=== PATIENT | female | born 1960 | race Caucasian/White ===

== ENCOUNTER 2023-08-02 10:04 | Inpatient (IN) | payer OTHER ==
--- OUTSIDE RECORDS SUMMARY | 2023-08-02 10:09 | XMS REPORT | Continuity of Care Document ---
Author Name Unknown Address [address] [facility] [address] [place] [address] [facility] Address [address] [facility] [place] [address] Care Team Providers Care Bruise Trimmer Name Role Phone Josiah Castano Primary Care Physician [phone] SOFIYA PALAFOX Attending Clinician Unavailable SOFIYA PALAFOX Attending Clinician Unavailable COLBY GUZMAN Attending Clinician Unavailable Lab, Ang - Db Attending Clinician Unavailable Doctor Unassigned, [place] Attending Clinician U Albert Moya MD Attending Clinician ALBERT SPENCE Attending Clinician Unavail able ALBERT SPENCE Attending Clinician Unavail able Oskar Robles MD Attending Clinician [phone] Jolene Raymond DO Attending Clinician [phone] JOLENE RAYMOND Attending Clinician Unavailable JOLENE RAYMOND Attending Clinician Unavailable CELINE BRAMBILA Attending Clinician Unavaila ble Only, Adc Test Attending Clinician Unavailable Pc, Adc Echo Room 1 - Attending Clinician Unavamike samuels Radiology Attending Clinician Unavailable RADIOLOGY Attending Clinician Unavailable OSKAR ROBLES Attending Clinician Unavailable Pc, Adc Vascular Room 1 - Attending Clinician Un available SHABOT, BRITNEY EDISON Attending Clinician Unavaila ble Payers Payer Name Policy Type Policy Number Effective Date Expirati on Date Source [facility] ANA ROWE [id number] 2014 00:00:00 Problems Condition Name Condition Details Condition Category Status Onset Date Resolution Date Last Treatment Date Treating Clinician Comments Source Decreased range of motion of ankle Decreased range of motion of ankle Disease Active 05-29 00:00: 00 [facility] Decreased muscle strength Decreased muscle strength Disease Active 05-29 00:00: 00 [facility] Difficulty walking Difficulty walking Disease Active 05-29 00:00: 00 Overview: Formattin g of this note might be different from the original. 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 [facility] Ankle pain Ankle pain Disease Active 05-23 00:00: 00 [facility] Chronic pain disorder Chronic pain disorder Disease Active 11-20 00:00: 00 [facility] Adjustment disorder Adjustment disorder Disease Active 11-20 00:00: 00 [facility] DVT, lower extremity DVT, lower extremity Disease Active 11-20 00:00: 00 [facility] Long-term current use of opiate analgesic Long-term current use of opiate analgesic Disease Active 11-20 00:00: 00 [facility] Bipolar 1 disorder Bipolar 1 disorder Disease Active 2011-04 00:00: 00 [facility] Seizures, post-traum atic Seizures, post-traum atic Disease Active 2011-04 00:00: 00 [facility] Pseudoseiz ure Pseudoseiz ure Disease Active 2011-04 00:00: 00 [facility] Complex partial seizure Complex partial seizure Disease Active 2011-04 00:00: 00 [facility] Pain in joint, ankle and foot Pain in joint, ankle and foot Disease Active 2011-04 00:00: 00 [facility] Cervicalgi a Cervicalgi a Disease Active 12-12 00:00: 00 [facility] Leg pain Leg pain Disease Active 12-12 00:00: 00 [facility] Gait disturbanc e Gait disturbanc e Disease Active 12-12 00:00: 00 [facility] Medication refill Medication refill Disease Active 11-03 00:00: 00 [facility] Allergies, Adverse Reactions, Alerts Allergy Name Allergy Type Status Severity Reaction(s) Onset Date Inactive Date Treating Clinician Comments Source TIZANIDI NE HCL DRUG INGREDI Active Other-Cmnt 09-20 00:00: 00 [facility] Tizanidi ne Hcl Propensi ty to adverse reaction s Active Other - See comments 09-20 00:00: 00 Blackout [facility] Pregabal in Propensi ty to adverse reaction s to drug Active Rash 09-14 00:00: 00 [facility] PREGABAL IN DRUG INGREDI Active High Rash 09-14 00:00: 00 [facility] Erythrom ycin Propensi ty to adverse reaction s Active Rash 07-04 00:00: 00 [facility] Haloperi dol Lactate Propensi ty to adverse reaction s Active Nausea and/or Vomiting 07-04 00:00: 00 [facility] Phenobar bital Propensi ty to adverse reaction s Active Other - See comments 07-04 00:00: 00 Couldn't walk or talk, doubled in blood system [facility] Tapentad ol Propensi ty to adverse reaction s Active Rash 07-04 00:00: 00 [facility] ERYTHROM YCIN DRUG Active Rash 07-04 00:00: 00 [facility] HALOPERI DOL LACTATE DRUG INGREDI Active N/V 07-04 00:00: 00 [facility] PHENOBAR BITAL DRUG INGREDI Active Other-Cmnt 07-04 00:00: 00 [facility] TAPENTAD OL DRUG INGREDI Active Rash 07-04 00:00: 00 [facility] CARBAMAZ EPINE DRUG INGREDI Active Other-Cmnt 07-04 00:00: 00 [facility] TOPIRAMA TE DRUG INGREDI Active Other-Cmnt 07-04 00:00: 00 [facility] Carbamaz epine Propensi ty to adverse reaction s Active Other - See comments 07-04 00:00: 00 Went toxic [facility] Topirama te Propensi ty to adverse reaction s Active Other - See comments 07-04 00:00: 00 Vision changes [facility] Social History Social Habit Start Date Stop Date Quantity Comments Source History of tobacco use Cigarette Smoker [facility] Gender [facility] Alcohol intake 2023-05-06 00:00:00 2023-05-06 00:00:00 Current non-drinker of alcohol (finding) [facility] History of Social function 2022-11-25 00:00:00 2022-11-25 00:00:00 [facility] Exposure to SARS-CoV-2 (event) 2022-07-23 00:00:00 2022-08-02 09:35:00 Not sure [facility] Cigarettes smoked current (pack per day) - Reported 2022-08-02 00:00:00 2022-08-02 00:00:00 [facility] Tobacco use and exposure 2022-08-02 00:00:00 2022-08-02 00:00:00 Smokeless tobacco non-user [facility] Cigarette pack-years 2022-08-02 00:00:00 2022-08-02 00:00:00 [facility] Sex Ass[birth year] At 1960 00:00:00 1960 00:00:00 [facility] Smoking Status Start Date Stop Date Source Occasional tobacco smoker 2022-08-02 00:00:00 [facility] Medications Ordered Medication Name Filled Medication Name Start Date Stop Date Current Medication? Ordering Clinician Indication Dosage Frequency Signature (SIG) Comments Components Source tiZANidine 4 mg tablet 2022-04- 00:00: 00 Yes [id number] 4mg Take 1 tablet by mouth every 6 (six) hours as needed for Pain (scale 4-6). [facility] Diclofenac Sodium 1 % gel 2022-04 0 00:00: 00 Yes Apply to affected area(s) 2 (two) times daily. [facility] ubrogepant (UBRELVY) 100 mg Tab 2022-04 0- 00:00: 00 02-08 00:00 :00 No [id number] TAKE 1 TABLET NEEDED FOR HEADACHE. IF SYMPTOMS PERSIST MAY REPEAT DOSE AFTER 2 HR. MAX 2 TABS IN 24HR...PA DENIED [facility] OXcarbazepi ne (TRILEPTAL) 600 mg tablet 2022-04 0- 00:00: 00 Yes [id number] 600mg Take 1 tablet by mouth in the morning and 1 tablet in the evening. [facility] propranoloL 20 mg tablet 2022-04 00:00: 00 04-12 00:00 :00 No [id number] 20mg Take 1 tablet by mouth in the morning and 1 tablet in the evening. [facility] ubrogepant 100 mg Tab 2022-04 0- 00:00: 00 02-02 00:00 :00 No [id number] 100mg Take 1 tablet by mouth as needed for Other (Headache) for up to 64 doses. If symptoms persist or return, may repeat dose after 2 hours. Maximum: 200 mg per 24 hours [facility] diclofenac sodium (PENNSAID TOPICAL) 01-06 11:01: 41 Yes Apply to area(s). [facility] losartan 50 mg tablet 01-06 00:00: 00 Yes [id number] 50mg Take 1 tablet by mouth in the morning. [facility] furosemide 40 mg tablet - 00:00: 00 Yes [id number] 40mg Take 1 tablet by mouth in the morning. [facility] rosuvastati n 20 mg tablet - 00:00: 00 Yes [id number] 20mg Take 1 tablet by mouth at bedtime. [facility] rosuvastati n (CRESTOR) 20 mg tablet 8 09:31: 15 11-25 00:00 :00 No 20mg Take 1 tablet by mouth at bedtime. [facility] lactulose 10 gram/15 mL solution 11-25 09:18: 15 11-25 00:00 :00 No 30mL Take 30 mL by mouth 2 (two) times daily as needed for Constipati on. [facility] hydrocortis one 1 % cream 11-25 09:18: 09 11-25 00:00 :00 No Apply to affected area(s) every 12 (twelve) hours. [facility] dimethicone (BLISTEX TOPICAL) 11-25 09:17: 56 11-25 00:00 :00 No Apply to area(s) daily. [facility] diclofenac sodium (PENNSAID TOPICAL) 11-25 08:34: 45 Yes Apply to area(s). [facility] Blood Pressure Monitor (BLOOD PRESSURE KIT) Kit 11-25 00:00: 00 Yes [id number] Use as directed twice daily to check blood pressure. [facility] tiZANidine 4 mg tablet 11-25 00:00: 00 04-12 00:00 :00 No [id number] 4mg Take 1 tablet by mouth every 6 (six) hours as needed for Pain (scale 4-6). [facility] terbinafine HCL 250 mg tablet 11-25 00:00: 00 04-12 00:00 :00 No [id number] 250mg Take 1 tablet by mouth in the morning. [facility] rosuvastati n 20 mg tablet 11-25 00:00: 00 11-26 00:00 :00 No [id number] 20mg Take 1 tablet by mouth at bedtime. [facility] OXcarbazepi ne (TRILEPTAL) 600 mg tablet 410 00:00: 00 02-01 00:00 :00 No [id number] 600mg Take 1 tablet by mouth in the morning and 1 tablet in the evening. [facility] Lysine 500 mg Tab 2020-04 10:04: 52 03-13 00:00 :00 No Take by mouth daily. [facility] acetaminoph en 500 mg tablet 2020-04 10:02: 29 03-13 00:00 :00 No 500mg Take 500 mg by mouth every 6 (six) hours as needed for Pain. [facility] Butalbital- Acetaminoph en-Caff 50-300-40 mg per capsule 2020-04 0-05 00:00: 00 08-02 00:00 :00 No [facility] diclofenac sodium (PENNSAID TOPICAL) 11-14 15:21: 24 Yes Apply to area(s). [facility] hydrocortis one 1 % cream 10-15 15:44: 09 Yes Apply to affected area(s) every 12 (twelve) hours. [facility] lactulose 10 gram/15 mL solution 10-15 15:44: 09 Yes 30mL Take 30 mL by mouth 2 (two) times daily as needed for Constipati on. [facility] dimethicone (BLISTEX TOPICAL) 10-15 15:44: 09 Yes Apply to area(s) daily. [facility] rosuvastati n (CRESTOR) 20 mg tablet 10-15 15:40: 02 Yes 20mg Take 20 mg by mouth at bedtime. [facility] triamcinolo ne acetonide 0.1 % cream 12-15 00:00: 00 11-25 00:00 :00 No 2 (two) times daily. [facility] OXcarbazepi ne (TRILEPTAL) 600 mg tablet 04-30 00:00: 00 08-02 00:00 :00 No [id number] 600mg Take 1 tablet by mouth 2 (two) times daily. [facility] lamoTRIgine 150 mg tablet 04-26 00:00: 00 03-13 00:00 :00 No [id number] 150mg Take 1 tablet by mouth 2 (two) times daily. [facility] HYDROcodone -acetaminop hen 7.5-325 mg per tablet 2015-04 00:00: 00 Yes 1{tbl} 1 tablet 3 (three) times daily as needed. [facility] furosemide (LASIX) 40 mg tablet 2015-04 00:00: 00 11-26 00:00 :00 No 40mg Take 1 tablet by mouth in the morning. [facility] KCL (KLOR-CON M10) 10 mEq tablet 2015-04 00:00: 00 03-13 00:00 :00 No [facility] clonazePAM (KLONOPIN) 2 mg tablet 09-03 00:00: 00 11-25 00:00 :00 No [id number] 2mg Take 1 Tab by mouth 2 (two) times daily. [facility] CYMBALTA 60 mg capsule 2012-04 00:00: 00 11-25 00:00 :00 No TAKE ONE CAPSULE EVERY DAY [facility] pantoprazol e (PROTONIX) 40 mg EC tablet 2012-04 00:00: 00 11-25 00:00 :00 No [id number] 40mg Take 1 Tab by mouth daily. [facility] Immunizations Ordered Immunization Name Filled Immunization Name Date Status Comments Source Td 2015-09-21 00:00:00 Completed [facility] TD, NOS 2015-09-21 00:00:00 Completed [facility] TD, NOS 2015-09-21 00:00:00 Completed [facility] TD, NOS 2015-09-21 00:00:00 Completed [facility] TD, NOS 2015-09-21 00:00:00 Completed [facility] TD, NOS 2015-09-21 00:00:00 Completed [facility] TD, NOS 2015-09-21 00:00:00 Completed [facility] TD, NOS 2015-09-21 00:00:00 Completed [facility] TD, NOS 2015-09-21 00:00:00 Completed [facility] TD, NOS 2015-09-21 00:00:00 Completed [facility] TD, NOS 2015-09-21 00:00:00 Completed [facility] TD, NOS 2015-09-21 00:00:00 Completed [facility] Influenza Intradermal Vaccine 2013-01-24 00:00:00 Completed [facility] Influenza Intradermal Vaccine 2013-01-24 00:00:00 Completed [facility] Influenza Intradermal Vaccine 2013-01-24 00:00:00 Completed [facility] Influenza Intradermal Vaccine 2013-01-24 00:00:00 Completed [facility] Influenza Intradermal Vaccine 2013-01-24 00:00:00 Completed [facility] Influenza Intradermal Vaccine 2013-01-24 00:00:00 Completed [facility] Influenza Intradermal Vaccine 2013-01-24 00:00:00 Completed [facility] Influenza Intradermal Vaccine 2013-01-24 00:00:00 Completed [facility] Influenza Intradermal Vaccine 2013-01-24 00:00:00 Completed [facility] Influenza Intradermal Vaccine 2013-01-24 00:00:00 Completed [facility] Influenza Intradermal Vaccine 2013-01-24 00:00:00 Completed [facility] Influenza Intradermal Vaccine 2013-01-24 00:00:00 Completed [facility] Influenza Virus Vaccine 2012-03-15 00:00:00 Completed [facility] Influenza Virus Vaccine 2012-03-15 00:00:00 Completed [facility] Influenza Virus Vaccine 2012-03-15 00:00:00 Completed [facility] Influenza Virus Vaccine 2012-03-15 00:00:00 Completed [facility] Influenza Virus Vaccine 2012-03-15 00:00:00 Completed [facility] Influenza Virus Vaccine 2012-03-15 00:00:00 Completed [facility] Influenza Virus Vaccine 2012-03-15 00:00:00 Completed [facility] Influenza Virus Vaccine 2012-03-15 00:00:00 Completed [facility] Influenza Virus Vaccine 2012-03-15 00:00:00 Completed [facility] Influenza Virus Vaccine 2012-03-15 00:00:00 Completed [facility] Influenza Virus Vaccine 2012-03-15 00:00:00 Completed [facility] Influenza Virus Vaccine 2012-03-15 00:00:00 Completed [facility] Influenza Virus Vaccine Unknown Completed [facility] Influenza Intradermal Vaccine Unknown Completed [facility] TD, NOS Unknown Completed [facility] Influenza Virus Vaccine Unknown Completed [facility] Influenza Intradermal Vaccine Unknown Completed [facility] TD, NOS Unknown Completed [facility] Influenza Virus Vaccine Unknown Completed [facility] Influenza Intradermal Vaccine Unknown Completed [facility] TD, NOS Unknown Completed [facility] Influenza Virus Vaccine Unknown Completed [facility] Influenza Intradermal Vaccine Unknown Completed [facility] TD, NOS Unknown Completed [facility] Influenza Virus Vaccine Unknown Completed [facility] Influenza Intradermal Vaccine Unknown Completed [facility] TD, NOS Unknown Completed [facility] Influenza Virus Vaccine Unknown Completed [facility] Influenza Intradermal Vaccine Unknown Completed [facility] TD, NOS Unknown Completed [facility] Influenza Virus Vaccine Unknown Completed [facility] Influenza Intradermal Vaccine Unknown Completed [facility] TD, NOS Unknown Completed [facility] Influenza Virus Vaccine Unknown Completed [facility] Influenza Intradermal Vaccine Unknown Completed [facility] TD, NOS Unknown Completed [facility] Influenza Virus Vaccine Unknown Completed [facility] Influenza Intradermal Vaccine Unknown Completed [facility] TD, NOS Unknown Completed [facility] Influenza Virus Vaccine Unknown Completed [facility] Influenza Intradermal Vaccine Unknown Completed [facility] TD, NOS Unknown Completed [facility] Influenza Virus Vaccine Unknown Completed [facility] Influenza Intradermal Vaccine Unknown Completed [facility] TD, NOS Unknown Completed [facility] TDAP Unknown Completed [facility] Influenza Virus Vaccine Unknown Completed [facility] Influenza Intradermal Vaccine Unknown Completed [facility] TD, NOS Unknown Completed [facility] TDAP Unknown Completed [facility] Influenza Virus Vaccine Unknown Completed [facility] Influenza Intradermal Vaccine Unknown Completed [facility] TD, NOS Unknown Completed [facility] TDAP Unknown Completed [facility] Influenza Virus Vaccine Unknown Completed [facility] Influenza Intradermal Vaccine Unknown Completed [facility] TD, NOS Unknown Completed [facility] TDAP Unknown Completed [facility] Influenza Virus Vaccine Unknown Completed [facility] Influenza Intradermal Vaccine Unknown Completed [facility] TD, NOS Unknown Completed [facility] TDAP Unknown Completed [facility] Influenza Virus Vaccine Unknown Completed [facility] Influenza Intradermal Vaccine Unknown Completed [facility] TD, NOS Unknown Completed [facility] Influenza Virus Vaccine Unknown Completed [facility] Influenza Intradermal Vaccine Unknown Completed [facility] TD, NOS Unknown Completed [facility] Vital Signs Vital Name Observation Time Observation Value Comments S ource Systolic blood pressure 2023-05-06 19:27:00 125 mm[Hg] [facility] Diastolic blood pressure 2023-05-06 19:27:00 83 mm[Hg] [facility] Heart rate 2023-05-06 19:27:00 65 /min [facility] Body temperature 2023-05-06 19:27:00 36.61 Maegan [facility] Body height 2023-05-06 19:27:00 [facility].7 [facility] Body weight 2023-05-06 19:27:00 [facility]272 [facility] BMI 2023-05-06 19:27:00 29.25 kg/m2 [facility] Oxygen saturation in Arterial blood by Pulse oximetry 2023-05-06 19:27:00 96 /min [facility] Systolic blood pressure 2023-04-12 15:54:00 129 mm[Hg] [facility] Diastolic blood pressure 2023-04-12 15:54:00 80 mm[Hg] [facility] Heart rate 2023-04-12 15:54:00 77 /min [facility] Body temperature 2023-04-12 15:54:00 36.56 Maegan [facility] Body height 2023-04-12 15:54:00 172.7 cm [facility] Body weight 2023-04-12 15:54:00 88.95 kg [facility] BMI 2023-04-12 15:54:00 29.82 kg/m2 [facility] Oxygen saturation in Arterial blood by Pulse oximetry 2023-04-12 15:54:00 96 /min [facility] Systolic blood pressure 2023-03-07 15:10:00 135 mm[Hg] [facility] Diastolic blood pressure 2023-03-07 15:10:00 73 mm[Hg] [facility] Heart rate 2023-03-07 15:10:00 59 /min [facility] 2023-03-07 15:10:00 18 /min [facility] Body height 2023-03-07 15:10:00 172.7 cm [facility] Body weight 2023-03-07 15:10:00 89.404 kg [facility] BMI 2023-03-07 15:10:00 29.97 kg/m2 [facility] Oxygen saturation in Arterial blood by Pulse oximetry 2023-03-07 15:10:00 96 /min [facility] Systolic blood pressure 2023-02-08 15:20:00 124 mm[Hg] [facility] Diastolic blood pressure 2023-02-08 15:20:00 71 mm[Hg] [facility] Heart rate 2023-02-08 15:20:00 62 /min [facility] Body temperature 2023-02-08 15:20:00 36.44 Maegan [facility] Body height 2023-02-08 15:20:00 172.7 cm [facility] Body weight 2023-02-08 15:20:00 91.491 kg [facility] BMI 2023-02-08 15:20:00 30.67 kg/m2 [facility] Oxygen saturation in Arterial blood by Pulse oximetry 2023-02-08 15:20:00 96 /min [facility] Systolic blood pressure 2023-02-01 14:19:00 158 mm[Hg] [facility] Diastolic blood pressure 2023-02-01 14:19:00 92 mm[Hg] [facility] Heart rate 2023-02-01 14:11:00 81 /min [facility] Body height 2023-02-01 14:11:00 172.7 cm [facility] Body weight 2023-02-01 14:11:00 91.128 [facility] BMI 2023-02-01 14:11:00 30.55 kg/m2 [facility] Oxygen saturation in Arterial blood by Pulse oximetry 2023-02-01 14:11:00 96 /min [facility] Systolic blood pressure 2023-01-06 16:01:00 151 mm[Hg] [facility] Diastolic blood pressure 2023-01-06 16:01:00 92 mm[Hg] [facility] Heart rate 2023-01-06 15:52:00 65 /min [facility] Body temperature 2023-01-06 15:52:00 36.22 Maegan [facility] Body height 2023-01-06 15:52:00 172.7 cm [facility] Body weight 2023-01-06 15:52:00 90.357 kg [facility] BMI 2023-01-06 15:52:00 30.29 kg/m2 [facility] Oxygen saturation in Arterial blood by Pulse oximetry 2023-01-06 15:52:00 96 /min [facility] Systolic blood pressure 2022-11-25 13:34:00 178 mm[Hg] [facility] Diastolic blood pressure 2022-11-25 13:34:00 96 mm[Hg] [facility] Heart rate 2022-11-25 13:09:00 77 /min [facility] Body temperature 2022-11-25 13:09:00 36.61 Maegan [facility] Body height 2022-11-25 13:09:00 172.7 cm [facility] Body weight 2022-11-25 13:09:00 90.266 kg [facility] BMI 2022-11-25 13:09:00 30.26 kg/m2 [facility] Oxygen saturation in Arterial blood by Pulse oximetry 2022-11-25 13:09:00 97 /min [facility] Systolic blood pressure 2022-08-02 15:06:00 130 mm[Hg] [facility] Diastolic blood pressure 2022-08-02 15:06:00 83 mm[Hg] [facility] Heart rate 2022-08-02 15:06:00 76 /min [facility] Body height 2022-08-02 15:06:00 172.7 cm [facility] Body weight 2022-08-02 15:06:00 84.732 [facility] BMI 2022-08-02 15:06:00 28.40 kg/m2 [facility] Systolic blood pressure 2021-03-13 15:58:00 118 mm[Hg] [facility] Diastolic blood pressure 2021-03-13 15:58:00 70 mm[Hg] [facility] Heart rate 2021-03-13 15:58:00 80 /min [facility] Respiratory rate 2021-03-13 15:58:00 20 /min [facility] Body height 2021-03-13 15:58:00 172.7 cm [facility] Body weight 2021-03-13 15:58:00 86.229 kg [facility] BMI 2021-03-13 15:58:00 28.90 kg/m2 [facility] Oxygen saturation in Arterial blood by Pulse oximetry 2021-03-13 15:58:00 99 /min [facility] Procedures Procedure Date / Time Performed Performing Clinician Source TDAP VACCINE, >11 YRS, IM 2023-04-12 16:03:26 Javy [facility] BI SCREENING TOMOSYNTHESIS BILATERAL 2023-03-11 16:53:54 [facility] Encounters Start Date/Time End Date/Time Encounter Type Admission Type Attending Clinicians Care Facility Care Department Encounter ID Source 2023-09-05 09:30:00 2023-09-05 09:30:00 Outpatient COLBY INIGUEZ [facility] [id number] [facility] 2023-08-01 09:09:03 2023-08-01 09:09:03 Outpatient SFA SFA [id number] Jimenez Rahman 2023-07-26 13:00:28 2023-07-26 13:00:28 Outpatient SFA SFA [id number] Jimenez Rahman 2023-07-19 13:01:00 2023-07-19 13:01:00 Outpatient SFA SFA [id number] Jimenez Rahman 2023-07-18 11:21:16 2023-07-18 11:21:16 Outpatient SFA SFA [id number] Jimenez Rahman 2023-07-12 13:08:51 2023-07-12 13:08:51 Outpatient SFA SFA 19 Jimenez Rahman 2023-07-05 13:05:40 2023-07-05 13:05:40 Outpatient SFA SFA 12 Jimenez Rahman 2023-06-28 13:02:56 2023-06-28 13:02:56 Outpatient SFA SFA [id number] Jimenez Rahman 2023-06-27 11:27:06 2023-06-27 11:27:06 Outpatient SFA SFA [id number] Jimenez Rahman 2023-06-21 13:16:31 2023-06-21 13:16:31 Outpatient SFA SFA 27 Jimenez Rahman 2023-06-14 13:01:29 2023-06-14 13:01:29 Outpatient SFA SFA [id number] Jimenez Rahman 2023 13:14:53 2023 13:14:53 Outpatient SFA SFA [id number] Jimenez Rahman 2023-05-24 13:02:49 2023-05-24 13:02:49 Outpatient SFA SFA [id number] Jimenez Rahman 2023-05-06 13:20:00 2023-05-06 13:47:36 Outpatient R SOFIYA PALAFOX CHRISTINE [facility] [id number] [facility] 2023-05-06 13:20:00 2023-05-06 13:47:36 [facility] 1.2.840.114 350.1.13.10 4.2.7.2.686 [id number] [facility] 2023-05-02 10:18:56 2023-05-02 10:18:56 Outpatient [facility] [id number] Jimenez Rahman 2023-04-12 10:20:00 2023-04-12 10:40:00 Office Visit Javy [facility] 1..840.114 350.1.13.10 4.2.7.2.686 [id number] [facility] 2023-04-12 10:20:00 2023-04-12 10:20:00 Outpatient R TARAH PALAFOXWALDEMAR PALAFOX [facility] [id number] [facility] 2023-03-28 09:23:41 2023-03-28 09:23:41 Outpatient [facility] [id number] Jimenez Rahman 2023-03-11 10:30:44 2023-03-11 23:59:00 Hospital Encounter Sofiya Palafox [facility] 1..840.114 350.1.13.10 4.2.7.2.686 [id number] [facility] 2023-03-11 10:28:56 2023-03-11 10:29:00 Outpatient R SOFIYA PALAFOX [facility] [id number] [facility] 2023-03-11 10:28:56 2023-03-11 10:29:00 Hospital Encounter Javy [facility] 1..840.114 350.1.13.10 4.2.7.2.686 [id number] [facility] 2023-03-07 10:30:00 2023-03-07 10:30:00 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, 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 Cha [facility] 1..840.114 350.1.13.10 4.2.7.2.686 [id number] [facility] 2023-03-07 09:30:00 2023-03-07 10:02:59 Outpatient R COLBY GUZMAN [facility] [id number] [facility] 2023-03-07 09:30:00 2023-03-07 10:02:59 [facility] 1..840.114 350.1.13.10 4.2.7.2.686 [id number] [facility] 2023-02-08 10:20:00 2023-02-08 11:13:34 Outpatient R JAVY SOFIYA KLEDanie [facility] [id number] [facility] 2023-02-08 10:20:00 2023-02-08 11:13:34 [facility] 1..840.114 350.1.13.10 4.2.7.2.686 [id number] [facility] 2023-02-01 10:00:00 2023-02-01 10:00:00 Office [facility] 1..840.114 350.1.13.10 4.2.7.2.686 [id number] [facility] 2023-02-01 10:00:00 2023-02-01 09:41:16 Outpatient R COLBY GUZMAN [facility] [id number] [facility] 2023-02-01 00:00:00 2023-02-01 00:00:00 Refill [facility] 1..840.114 350.1.13.10 4.2.7.2.686 [id number] [facility] 2023-02-01 00:00:00 2023-02-01 00:00:00 Telephone GuzmanColyb [facility] 1.2.840.114 350.1.13.10 4.2.7.2.686 [id number] [facility] 2023-01-06 11:30:00 2023-01-06 11:45:00 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, Lorenzo - Omar Javy [facility] 1.2.840.114 350.1.13.10 4.2.7.2.686 [id number] [facility] 2023-01-06 11:00:00 2023-01-06 11:33:54 [facility] 1.2840.114 350.1.13.10 4.2.7.2.686 [id number] [facility] 2023-01-06 11:30:00 2023-01-06 11:30:00 [facility] [id number] 2023-01-06 00:00:00 2023-01-06 00:00:00 Letter (Out) Doctor Unassigned, [place] [address].2840.114 350.1.13.10 4.2.7.2.686 [id number] [facility] 2023-01-06 00:00:00 2023-01-06 00:00:00 Letter (Out) Doctor Unassigned, [place] [facility] 1.2840.114 350.1.13.10 4.2.7.2.686 [id number] [facility] 2023-01-03 09:23:55 2023-01-03 09:23:55 Outpatient [facility] [id number] Jimenez Rahman 2022-12-20 09:47:52 2022-12-20 09:47:52 Outpatient SFA [facility] [id number] Jimenez Rahman 2022-11-29 09:59:02 2022-11-29 09:59:02 Outpatient SFA [facility] [id number] Jimenez Rahman 2022-11-26 00:00:00 2022-11-26 00:00:00 Telephone Javy [facility] 1.2.840.114 350.1.13.10 4.2.7.2.686 [id number] [facility] 2022-11-25 08:40:00 2022-11-25 09:20:00 Office Visit Javy [facility] 1.2.840.114 350.1.13.10 4.2.7.2.686 [id number] [facility] 2022-11-25 08:40:00 2022-11-25 08:40:00 Outpatient Julee DRIVERDanieSOFIYA [facility] [id number] [facility] 2022-11-01 09:32:07 2022-11-01 09:32:07 Outpatient [facility] [id number] Jimenez Ramhan 2022-08-02 10:45:00 2022-08-02 11:00:00 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, Albert Rivera [facility] 1.2.840.114 350.1.13.10 4.2.7.2.686 [id number] [facility] 2022-08-02 09:40:00 2022-08-02 10:50:10 Outpatient ALBERT BAIG HOWARD [facility] [id number] [facility] 2022-08-02 09:40:00 2022-08-02 10:50:10 Office Visit Albert Spence [facility] 1.284.114 350.1.13.10 4.2.7.2.686 [id number] [facility] 2021-03-13 10:00:00 2021-03-13 10:43:14 Outpatient R HEIDI ALBERT HERNANDEZ [facility] [id number] [facility] 2021-03-13 09:37:39 2021-03-13 10:43:14 Office Visit Albert Spence [facility] 1.284.114 350.1.13.10 4.2.7.2.686 [id number] [facility] 2021-03-13 00:00:00 2021-03-13 00:00:00 Orders Only Doctor Unassigned, [place] [facility] 1.2840.114 350.1.13.10 4.2.7.2.686 [id number] [facility] 2020-01-31 00:00:00 2020-01-31 00:00:00 [facility] 1.2.840.114 350.1.13.10 4.2.7.2.686 [id number] 2020-01-31 00:00:00 2020-01-31 00:00:00 Telephone [facility] 1.2840.114 350.1.13.10 4.2.7.2.686 [id number] [facility] 2020-01-25 15:00:23 2020-01-25 16:25:38 Office Visit Jolene Raymond [facility] Building 1.284.114 350.1.13.10 4.2.7.2.686 [id number] 2020-01-25 15:00:23 2020-01-25 16:25:38 Office Visit Jolene Raymond [facility] 1.2.840.114 350.1.13.10 4.2.7.2.686 [id number] [facility] 2020-01-25 15:40:00 2020-01-25 15:40:00 Outpatient R JOLENE RAYMOND SHIWAN [facility] [id number] [facility] 2020-01-25 00:00:00 2020-01-25 00:00:00 Orders Only Doctor Unassigned, [place] [facility] 1.2.840.114 350.1.13.10 4.2.7.2.686 [id number] 2020-01-25 00:00:00 2020-01-25 00:00:00 Orders Only Doctor Unassigned, [place] [facility] 1.2.840.114 350.1.13.10 4.2.7.2.686 [id number] [facility] 2020-01-22 00:00:00 2020-01-22 00:00:00 Telephone Jolene Raymond [facility] 1.2.840.114 350.1.13.10 4.2.7.2.686 [id number] [facility] 2020-01-17 15:00:00 2020-01-17 15:00:00 Outpatient R JOLENE RAYMOND SHIWAN [facility] [id number] [facility] 2020-01-17 10:40:00 2020-01-17 10:40:00 Outpatient R JOLENE RAYMOND SHIWAN [facility] [id number] [facility] 2020-01-11 15:30:00 2020-01-11 15:30:00 Outpatient R CELINE BRAMBILA [facility] [id number] [facility] 2020-01-07 14:56:15 2020-01-07 15:11:15 Glove Machine Operator Visit Only, Adc Test RaymondJustinamatti [facility] 1.2.840.114 350.1.13.10 4.2.7.2.686 [id number] [facility] 2020-01-07 14:30:00 2020-01-07 14:30:00 Outpatient R [facility] [id number] [facility] 2020-01-07 00:00:00 2020-01-07 00:00:00 Orders Only Doctor Unassigned, [place] [facility] 1.2.840.114 350.1.13.10 4.2.7.2.686 [id number] [facility] 2019-11-07 16:07:56 2019-11-16 13:07:58 Laboratory Only Pc, Adc Echo Room - [facility] 1.2.840.114 350.1.13.10 4.2.7.2.686 [id number] [facility] 2019-11-16 00:00:00 2019-11-16 00:00:00 Telephone LisetteJustinamatti [facility] 1.2.840.114 350.1.13.10 4.2.7.2.686 [id number] [facility] 2019-11-15 14:48:51 2019-11-15 16:32:01 Office Visit Jolene Raymond [facility] 1.2.840.114 350.1.13.10 4.2.7.2.686 [id number] [facility] 2019-11-15 15:00:00 2019-11-15 15:00:00 [facility] [id number] [facility] 2019-11-13 14:20:00 2019-11-13 23:59:00 Hospital Encounter Radiology [facility] 1.2.840.114 350.1.13.10 4.2.7.2.686 [id number] [facility] 2019-11-13 14:28:15 2019-11-13 14:28:15 Outpatient R RADIOLOGY [facility] [id number] [facility] 2019-11-07 16:00:00 2019-11-07 16:00:00 [facility] [id number] [facility] 2019-11-07 00:00:00 2019-11-07 00:00:00 Telephone Zeeshan [facility] Building 1.2.840.114 350.1.13.10 4.2.7.2.686 [id number] [facility] 2019-11-01 14:00:00 2019-11-01 14:00:00 Outpatient R JOLENE RAYMOND SHIWAN [facility] [id number] [facility] 2019-11-01 00:00:00 2019-11-01 00:00:00 Telephone Zeeshan [facility] Building 1.2.840.114 350.1.13.10 4.2.7.2.686 [id number] [facility] 2019-10-29 14:53:09 2019-10-29 15:53:09 Glove Machine Operator Visit Pc, Adc Vascular Room 1 - Zeeshan [facility] nal Building 1.2.840.114 350.1.13.10 4.2.7.2.686 [id number] [facility] 2019-10-29 15:00:00 2019-10-29 15:00:00 Outpatient R [facility] [id number] [facility] 2019-10-16 15:03:21 2019-10-16 16:15:38 Office Visit Oskar Robles [facility] 1.2.840.114 350.1.13.10 4.2.7.2.686 [id number] [facility] 2019-10-16 15:00:00 2019-10-16 15:00:00 Outpatient R OSKAR ROBLES [facility] [id number] [facility] 2019-10-16 00:00:00 2019-10-16 00:00:00 Orders Only Doctor Unassigned, [place] [address].2.840.114 350.1.13.10 4.2.7.2.686 [id number] [facility] 2019-09-19 00:00:00 2019-09-19 00:00:00 Orders Only Doctor Unassigned, [place] [address].2.840.114 350.1.13.10 4.2.7.2.686 [id number] [facility] 2014-07-23 09:30:00 2014-07-23 09:30:00 Outpatient R BRITNEY BAIG [facility] [id number] [facility] Notes Date/Time Note Provider Source 2023-01-06 11:30:00 bV5VoJmsnb5yyHbpMJvg hT4qX7fWR4 EwO3+YBGabT6N0onNPCcQVYms86F0t uvMr9629-50-25D90:30:00Formatt ing of this note is different from the original.Images from the original note were not included.Venipuncture collection performed by clean technique on the right anticubitus. Total of 1 attempts were made. Slight pressure and a bandage/dressing were applied to the site(s). The patient experienced no complications. The following specimens were processed according to instructions and sent to [facility] laboratories per lab order on 01/06/2023 : LT BLUE SST 2 RED LAV PPT DK GREEN (LiHep) DK GREEN (SodH) ARIAS DK BLUE (K2) DK BLUE (S) ACD Blood Culture NIPT/NTD 54919-0Xqruv PszvSH1273-12-80B74:45:47Nurse NoteTXT1.2.840.483143.1.13.104 .2.7.2.393647|[id number] lable for patient lczk85124-7Ctdxj NoteLN[address]TXTX[address] 647545CTXVUDPIEDNKBFTSGACBRU81 15-01-141:45:471.2.840.16003 0.1.72.3.15|1.2.840.853359.1.1 3.104.2.7.2.727879_[id number] [facility] 2022-11-29 15:23:07 99kP7sC+uOXeZ6KCHiWb i7uKd+mqZa 3qJFLpP+vMgY4wwFpi0StpStITvx9X pY0+5849-35-78M17:23:07Formatt ing of this note might be different from the original.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 I will see if it can be specific to department but it is under FYI flag which triggers the banner. I will find out - thank you! 97461-8Acvmehsmx encounter DdceGM1138-05-65G95:25:50Telep shelbi encounter NoteTXT1.2.840.087287.1.13.104 .2.7.2.008073|[id number] lable for patient rojx72351-9FvpoBW555714143Xtoe adam CYR[address] 251241GBYZAZLUOWCXXXJLFTCVNP72 15-12-065:25:501.2.840.30388 0.1.72.3.15|1.2.840.433392.1.1 3.104.2.7.2.727879_[id number] Bren Bird RN [facility] 2022-11-26 17:20:16 P2bWJgEyn+WWN2DqWDGF oPtbY1ZOtP 4x8UCBWN5+IgmQF5J/NI8zJDziiJpb Pm5P1230-29-01F51:20:16Formatt ing of this note might be different from the original.Sent, BTW there is a banner that says "dismissed from practice." Can you speak with kathleen or bren as to why or if we can get it changed in the system. 88569-2Btystrazk encounter SxewKV6667-74-14D00:21:32Telep shelbi encounter NoteTXT1.2.840.872976.1.13.104 .2.7.2.395424|[id number] lable for patient nsek97179-3JpthMAMBZFKBGP[address]on[place] 494547LZUNHWFWDSPSXIXZWNOEZH44 16-12-03T17:21:321.2.840.74701 0.1.72.3.15|1.2.840.913451.1.1 3.104.2.7.2.727879_[id number] [facility] 2022-11-26 11:29:00 6kZ3nUregFX+NO89sulT XS6UOM6blq 0y3BJmuYIWRtI3NUegzFSpT0Cdrdsu CXPl9723-81-72I17:29:00Formatt ing of this note might be different from the original.Please review and refill if appropriate. 79474-2Ggxwbkvdw encounter WijoRJ3906-15-38V11:31:48Telep shelbi encounter NoteTXT1.2.840.729703.1.13.104 .2.7.2.633227|[id number] lable for patient xvpw19770-5QjmaNLEPJNUTOH[address]onGalvestonTXTX[address] 809843QLKEZPRQIOPRCTALVGPDWF35 16-12-03T11:31:481.2.840.81968 0.1.72.3.15|1.2.840.881558.1.1 3.104.2.7.2.727879_[id number] [facility] 2022-11-26 11:11:12 jsW+NTcs3oOmB0ZoBReZ redLPGRVfB F5wbO1GZSwf17Gdokh5XqCu4kVsYHp lpBs6793-83-07K42:11:12Formatt ing of this note might be different from the original.Pt says she need refill on lasix and CRESTOR went to pharm yesterday they informed her no refillCVS/FREEPORTElectronical ly signed by Clare Martin at 11/26/2022 11:24 AM AOC85967-9Bckmslcer encounter XtnkNC9282-45-69P71:24:08Telep shelbi encounter NoteTXT1.2.840.276561.1.13.104 .2.7.2.550841|[id number] lable for patient aplp96640-1QmadNM276841096Zdhr a Rodriguez[address]onTXTX[address] 421146NSFAMRFBIMISXQWSTUEGEA67 16-12-03T11:24:081.2.840.23104 0.1.72.3.15|1.2.840.713755.1.1 3.104.2.7.2.727879_[id number] Clare Martin [facility]
[2023-08-02 11:25] LABS: Absolute Basophils 0.1 K/uL (0-0.5); Absolute Eosinophils 0.1 K/uL (0-0.5); Absolute Lymphocytes (CBC) 2.5 K/uL (0.7-4.9); Absolute Monocytes 1.3 K/uL (0.1-1.3); Absolute Neutrophil 9.9 K/uL (1.8-8.0); Basophils % 0.5 % (0-1.3); Eosinophils % 0.6 % (0-4.4); Hematocrit 43.2 % (36.0-45.0); Hemoglobin 14.4 g/dL (12.0-15.0); Lymphocytes % 18.1 % (15.3-44.8); MCH 30.6 pg (27.0-35.0); MCHC 33.4 g/dL (32.0-36.0); MCV 91.8 fL (80-100); MPV 8.4 fL (7.6-11.3); Monocytes % 9.2 % (3.3-12.3); Neutrophils % 71.6 % (41.7-73.7); Platelets 237 thou/uL (152-406); RBC Red Blood Cell Count 4.71 M/uL (3.86-4.86); Red Cell Distribution Width 13.3 % (12.1-15.2)
[2023-08-02 11:41] LABS: Albumin 3.7 g/dL (3.4-5.0); Albumin/Globulin Ratio 0.8 (1.1-1.8); Anion Gap 7.2 mEq/L (5.0-15.0); Bilirubin Total 0.6 mg/dL (0.2-1.0); Globulin 4.8 g/dL (2.3-3.5); Potassium 3.2 mEq/L (3.5-5.1); Protein, Total 8.5 g/dL (6.4-8.2)
[2023-08-02 11:42] LABS: Specific Gravity 1.005 (1.005-1.030); Sqamous Epithelial <5 /HPF (None Seen); Urine Bacteria <20 /HPF (<20); Urine Bilirubin NEGATIVE (Negative); Urine Blood Trace (Negative); Urine Clarity Turbid (Clear); Urine Color Colorless (Yellow); Urine Culture Reflex Order NOT NEEDED; Urine Glucose NEGATIVE (Negative); Urine Ketones NEGATIVE (Negative); Urine Microscopic Reflex YN ORDER UMIC; Urine Mucus Slight /HPF (None Seen); Urine Nitrite NEGATIVE (Negative); Urine Protein NEGATIVE (Negative); Urine RBC <5 /HPF (None Seen); Urine Urobilinogen Normal (Normal); Urine WBC <5 /HPF (<5)
[2023-08-02] MEDS ORDERED: MORPHINE 4 MG/ML SYR ONE (11:58)
[2023-08-02] MEDS ORDERED: NA CHLORIDE 0.9% 1,000 ML ONE (11:58)
[2023-08-02] MEDS ORDERED: ONDANSETRON 4 MG/2 ML VIAL ONE (11:58)
--- NOTE | 2023-08-02 12:04 | RAD REPORT ---
EXAM DESCRIPTION: CT - Abdomen Pelvis W Contrast - 08/02/2023 11:50 am CLINICAL HISTORY: Abdominal pain COMPARISON: none. TECHNIQUE: Computed axial tomography of the abdomen pelvis was obtained. 100 cc Isovue-300 was admin istered intravenously. Oral contrast was not requested which limits evaluation of bowel and appendix All CT scans are performed using dose optimization technique as appropriate and may include automated exposure control or mA/KV adjustment according to patient size. FINDINGS: Mild fatty liver. The liver is enlarged. Spleen, pancreas, right adrenal and right kidney unremarkable. Small left renal cyst. 1.9 centimeter fatty mass left adrenal gland likely benign Normal appendix. Diverticula stem from the colon. Thickening of the wall of the distal sigmoid colon with moderate str anding within the adjacent fat. 1.7 centimeter low-density structure within the wall. Small amount of free fluid. Cholecystectomy. Hysterectomy IMPRESSION: Patient most likely has a moderate sigmoid diverticulitis with small abscess. Close foll ow-up is recommended to exclude the less likely possibility that this is neoplastic
--- NOTE | 2023-08-02 12:13 | EDPHYS ---
Physician Documentation [facility] Name: Kirti Desai Age: 63 yrs Sex: Female : 1960 Arrival Date: 08/02/2023 Time: 10:04 Bed 10 Private MD: ED Physician Crescencio Salvador HPI: 08/01 11:42 This 63 yrs old Female presents to ER via Ambulatory with complaints of Low ec2 Back Pain, Abdominal Pain, Fever. 11:42 Patient arrives today for evaluation of right-sided abdominal pain. Patient reports she ec2 been having right side abdominal pain since earlier this morning. Patient reports no specific alleviating or exacerbating factors. Reports previous history of hysterectomy, cholecystectomy. Denies any fevers or chills, reports some associated nausea, no vomiting. No stool changes.. Historical: - Allergies: 10:14 haloperidol lactate; ll1 10:14 Carbamazepine; ll1 10:14 erythromycin lactobionate; ll1 10:14 Haloperidol; ll1 10:14 Phenobarbital; ll1 10:14 tapentadol; ll1 10:14 topiramate; ll1 - PMHx: 10:14 Bipolar disorder; CVA; April- but undiagnosed. (); Anxiety; DVT L leg-from hip ll1 down to toe; epilepsy; Cellulitis; Chronic pain; - Immunization history:: Adult Immunizations up to date. - Infectious Disease History:: Denies. - Social history:: Smoking status: Patient reports the use of cigarette tobacco products, smokes one pack cigarettes per day. ROS: 11:42 Constitutional: as per hpi ec2 Exam: 11:42 Constitutional: GEN: NAD Head: atraumatic Eyes: EOMI Ears: External ears are ec2 normal. CV: Tachycardia LUNGS: no respiratory distress ABD: non-distended, soft, right CVA TTP, not guarding, not rigid, right lower quadrant TTP. SKIN: no evidence of rashes MSK: no evidence of trauma NEURO: moves all extremities equally Vital Signs: 10:19 BP 133 / 65; Pulse 106; Resp 17; Temp 98.1; Pulse Ox 96% ; Weight 87.54 kg; Height 5 ll1 ft. 8 in. ; Pain 10/10; 12:09 BP 141 / 71; Pulse 88; Resp 16; Pulse Ox 99% ; Pain 8/10; ss 10:19 Body Mass Index 29.34 (87.54 kg, 172.72 cm) ll1 10:19 Pain Scale: Adult ll1 12:09 Pain Scale: Adult ss MDM: 10:25 Patient medically screened. ec2 11:42 Data reviewed: vital signs. ED course: Patient arrives today for evaluation of ec2 right-sided abdominal pain. Examination remarkable for abdominal findings as noted above. Will obtain lab work, urine studies, CT imaging, treat the patient's pain with morphine, Zofran and crystalloid. Evaluating for intra-abdominal processes. . 11:55 ED course: CBC shows leukocytosis at 13.8. CMP shows slight hypokalemia. Urine is ec2 noninfectious appearing. Lipase within normal ranges. Pending CT imaging. . 12:09 ED course: CT shows diverticulitis with small abscess. Will admit for IV antibiotics, ec2 added septic workup on as well. Will consult surgery however size of 1.7cm is non-actionable. . 08/01 10:25 Order name: CBC with Diff; Complete Time: 11:55 ec2 08/01 10:25 Order name: CMP; Complete Time: 11:55 ec2 08/01 10:25 Order name: Lipase; Complete Time: 11:55 ec2 08/01 10:25 Order name: Urinalysis w/ reflexes; Complete Time: 11:55 ec2 08/01 12:09 Order name: Blood Culture Adult (2) ec2 08/01 12:09 Order name: Lactate w/ 2H reflex if indic. ec2 08/01 12:57 Order name: Urinalysis w/ reflexes EDMS 08/01 12:57 Order name: CBC with Automated Diff EDMS 08/01 12:57 Order name: CBC with Automated Diff EDMS 08/01 12:57 Order name: Comprehensive Metabolic Panel EDMS 08/01 12:57 Order name: Comprehensive Metabolic Panel EDMS 08/01 12:57 Order name: Lipid Profile EDMS 08/01 12:57 Order name: Lipid Profile EDMS 08/01 12:57 Order name: Magnesium EDMS 08/01 12:57 Order name: Magnesium EDMS 08/01 10:25 Order name: CT Abd/Pelvis - IV Contrast Only; Complete Time: 12:08 ec2 08/01 12:56 Order name: CONS Physician Consult EDMS 08/01 10:25 Order name: IV Saline Lock; Complete Time: 11:10 ec2 08/01 10:25 Order name: Labs collected and sent; Complete Time: 11:10 ec2 08/01 12:09 Order name: Accucheck; Complete Time: 12:54 ec2 08/01 12:09 Order name: Cardiac monitoring; Complete Time: 12:54 ec2 08/01 12:09 Order name: EKG - Nurse/Tech; Complete Time: 14:43 ec2 08/01 12:09 Order name: IV Saline Lock - Large Bore; Complete Time: 12:54 ec2 08/01 12:09 Order name: O2 Per Protocol; Complete Time: 12:54 ec2 08/01 12:09 Order name: O2 Sat Monitoring; Complete Time: 12:54 ec2 08/01 12:09 Order name: Vital Signs; Complete Time: 12:54 ec2 Administered Medications: 12:08 Drug: Ondansetron IVP 4 mg IVP once; over 2 minutes Route: IVP; Site: left antecubital; 13:57 Follow up: Response: No adverse reaction 12:08 Drug: NS 0.9% IV 1000 ml IV at 1 bolus Per protocol; 1000 mL bolus Route: IV; Rate: 1 ss bolus; Site: left antecubital; 14:43 Follow up: IV Status: Completed infusion; IV Intake: 1000ml ss 12:09 Drug: morphine IVP or IV 4 mg IVP once over 4 mins Route: IVP; Infused Over: 4 mins; ss Site: left antecubital; 13:06 Follow up: Response: No adverse reaction; Pain is decreased; RASS: Alert and Calm (0) 12:54 Drug: Rocephin IV 1 grams IV at calculated rate once; Given slow IV push per pharmacy ss instructions Route: IV; Rate: calculated rate; Site: left antecubital; 13:15 Follow up: IV Status: Completed infusion ss 13:20 Drug: metroNIDAZOLE IVPB 500 mg 100 ml IVPB at 200 ml/hr once over 30 mins Volume: 100 ss ml; Route: IVPB; Rate: 200 ml/hr; Infused Over: 30 mins; Site: left antecubital; 13:50 Follow up: IV Status: Completed infusion ss Disposition Summary: 08/02/23 12:13 Hospitalization Ordered Notes: Hospitalization Status: Inpatient Admission ec2 Provider: Royal Tee ec2 [facility] ec2 Condition: Stable ec2 Problem: new ec2 Symptoms: have improved ec2 Bed/Room Type: Standard ec2 Room Assignment: 414(08/02/23 14:17) bd Diagnosis - Diverticulitis of large intestine without perforation or abscess with bleeding ec2 - Sepsis, unspecified organism ec2 Forms: - Medication Reconciliation Form ec2 - SBAR form ec2 - Leadership Thank You Letter ec2 Critical care time excluding procedures: 12:19 Critical care time: Bedside Care: 30 minutes, Consultation: 5 minutes. Total time: 35 ec2 minutes Signatures: Dispatcher [employer] EDMS Zari Feng Shelby, RN RN ss Mel Botello RN RN ll1 Crescencio Salvador MD MD ec2 Corrections: (The following items were deleted from the chart) 10:26 10:26 CBC+H.LAB.BRZ ordered. EDMS EDMS 10:26 10:26 COMPREHENSIVE METABOLIC PANEL+C.LAB.BRZ ordered. EDMS EDMS 10:26 10:26 LIPASE+C.LAB.BRZ ordered. EDMS EDMS 10:26 10:26 Urinalysis+U.LAB.BRZ ordered. EDMS EDMS 10:26 10:26 Abdomen Pelvis W Con+CT.RAD.BRZ ordered. EDMS EDMS 13:37 12:13 ec2 bd 14:17 13:37 417 bd bd
--- NOTE | 2023-08-02 12:13 | ER ---
Nurse's Notes [facility] Name: Kirti Desai Age: 63 yrs Sex: Female : 1960 Arrival Date: 08/02/2023 Time: 10:04 Bed 10 Private MD: Diagnosis: Diverticulitis of large intestine without perforation or abscess with bleeding;Sepsis, unspecified organism Presentation: 08/01 10:19 Chief complaint: Patient states: RLQ abdominal pain since 2 AM. Coronavirus screen: ll1 Client denies travel out of the [place] in the last 14 days. At this time, the client does not indicate any symptoms associated with coronavirus-19. Ebola Screen: Patient denies travel to an Ebola-affected area in the 21 days before illness onset. Initial Sepsis Screen: Does the patient meet any 2 criteria? No. Patient's initial sepsis screen is negative. Does the patient have a suspected source of infection? No. Patient's initial sepsis screen is negative. Risk Assessment: Do you want to hurt yourself or someone else? Patient reports no desire to harm self or others. Onset of symptoms was August 02, 2023. 10:19 Method Of Arrival: Ambulatory ll1 10:19 Acuity: SAMANTHA 3 ll1 Historical: - Allergies: 10:14 haloperidol lactate; ll1 10:14 Carbamazepine; ll1 10:14 erythromycin lactobionate; ll1 10:14 Haloperidol; ll1 10:14 Phenobarbital; ll1 10:14 tapentadol; ll1 10:14 topiramate; ll1 - PMHx: 10:14 Bipolar disorder; CVA; April- but undiagnosed. (); Anxiety; DVT L leg-from hip ll1 down to toe; epilepsy; Cellulitis; Chronic pain; - Immunization history:: Adult Immunizations up to date. - Infectious Disease History:: Denies. - Social history:: Smoking status: Patient reports the use of cigarette tobacco products, smokes one pack cigarettes per day. Screenin:09 [facility] ED Fall Risk Assessment (Adult) History of falling in the last 3 months, ss including since admission No falls in past 3 months (0 pts). Abuse screen: Denies threats or abuse. Denies injuries from another. Nutritional screening: No deficits noted. Tuberculosis screening: No symptoms or risk factors identified. Assessment: 12:09 General: Appears in no apparent distress. comfortable, Behavior is calm, cooperative, ss Denies fever. Pain: Complains of pain in right lower quadrant Pain currently is 8 out of 10 on a pain scale. Quality of pain is described as sharp, shooting, Is episodic. Neuro: Level of Consciousness is awake, alert, obeys commands, Oriented to person, place, time, situation, Front End Developer Designer are equal bilaterally Pupils are PERRLA. Respiratory: Airway is patent Respiratory effort is even, unlabored, Respiratory pattern is regular, symmetrical. GI: Abd is soft and non tender X 4 quads. Reports diarrhea, nausea. EENT: Oral mucosa is moist. Derm: Skin is pink, warm \T\ dry. normal. 13:10 Reassessment: Patient appears in no apparent distress at this time. Patient and/or ss family updated on plan of care and expected duration. Pain level reassessed. Patient is alert, oriented x 3, equal unlabored respirations, skin warm/dry/pink. 14:12 Reassessment: Patient appears in no apparent distress at this time. room assignment ss given, but is still being cleaned at this time. Pt aware Patient states feeling better. Patient states symptoms have improved. Respiratory: Respiratory effort is even, unlabored. Vital Signs: 10:19 BP 133 / 65; Pulse 106; Resp 17; Temp 98.1; Pulse Ox 96% ; Weight 87.54 kg; Height 5 ll1 ft. 8 in. ; Pain 10/10; 12:09 BP 141 / 71; Pulse 88; Resp 16; Pulse Ox 99% ; Pain 8/10; ss 10:19 Body Mass Index 29.34 (87.54 kg, 172.72 cm) ll1 10:19 Pain Scale: Adult ll1 12:09 Pain Scale: Adult ss ED Course: 10:09 Patient arrived in ED. im 10:14 Arm band placed on. ll1 10:20 Triage completed. ll1 10:22 Crescencio Salvador MD is Attending Physician. ec2 11:10 CBC with Diff Sent. jr12 11:10 CMP Sent. jr12 11:10 Lipase Sent. jr12 11:10 Urinalysis w/ reflexes Sent. jr12 11:10 Inserted saline lock: 20 gauge in left antecubital area, using aseptic technique. Blood jr12 collected. 11:46 Cabello, Jahala, RN is Primary Nurse. jl7 11:51 CT Abd/Pelvis - IV Contrast Only In Process Unspecified. EDMS 12:08 Kiersten Chacon, DEMETRIO is Primary Nurse. 12:09 Patient has correct armband on for positive identification. Bed in low position. Call ss light in reach. Side rails up X 1. Warm blanket given. 12:13 Royal Tee MD is Hospitalizing Provider. ec2 12:45 Blood Culture Adult (2) Sent. as6 12:45 Lactate w/ 2H reflex if indic. Sent. as6 14:56 No provider procedures requiring assistance completed. Patient admitted, IV remains in ss place. Administered Medications: 12:08 Drug: Ondansetron IVP 4 mg IVP once; over 2 minutes Route: IVP; Site: left antecubital; 13:57 Follow up: Response: No adverse reaction 12:08 Drug: NS 0.9% IV 1000 ml IV at 1 bolus Per protocol; 1000 mL bolus Route: IV; Rate: 1 ss bolus; Site: left antecubital; 14:43 Follow up: IV Status: Completed infusion; IV Intake: 1000ml 12:09 Drug: morphine IVP or IV 4 mg IVP once over 4 mins Route: IVP; Infused Over: 4 mins; Site: left antecubital; 13:06 Follow up: Response: No adverse reaction; Pain is decreased; RASS: Alert and Calm (0) 12:54 Drug: Rocephin IV 1 grams IV at calculated rate once; Given slow IV push per pharmacy instructions Route: IV; Rate: calculated rate; Site: left antecubital; 13:15 Follow up: IV Status: Completed infusion 13:20 Drug: metroNIDAZOLE IVPB 500 mg 100 ml IVPB at 200 ml/hr once over 30 mins Volume: 100 ss ml; Route: IVPB; Rate: 200 ml/hr; Infused Over: 30 mins; Site: left antecubital; 13:50 Follow up: IV Status: Completed infusion Medication: 12:09 VIS not applicable for this client. ss Intake: 14:43 IV: 1000ml; Total: 1000ml. Outcome: 12:13 Decision to Hospitalize by Provider. ec2 14:56 Discharged to 14:56 Admitted to Med/surg accompanied by tech, via wheelchair, with chart, 14:56 Condition: good 14:56 Instructed on the need for admit, Demonstrated understanding of instructions, 15:00 Patient left the ED. ss Signatures: Dispatcher [employer] Kiersten Moody RN RN Carmelo Black RN RN jl7 Mel Botello RN RN ll1 Murray Hollis RN RN as6 Nadine Benoit Edwin, MD MD ec2 Diann Geronimo [facility] [[email or web address]] Corrections: (The following items were deleted from the chart) 10:21 10:19 BP 133 / 65; Pulse 106bpm; Resp 17bpm; Pulse Ox 96%; 87.54 kg; Height 5 ft. 8 ll1 in.; BMI: 29.3; Pain 02/01, Adult; ll1
[2023-08-02] MEDS ORDERED: CEFTRIAXONE 1000 MG/VIAL ONE (12:43)
[2023-08-02] MEDS ORDERED: NA CHLORIDE 0.9% 100 ML ONE (12:44)
[2023-08-02] MEDS ORDERED: METRONIDAZOLE 500mg IVPB 500 MG/100 ML BAG IV ONE (12:44)
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
[2023-08-02] MEDS ORDERED: SODIUM CHLORIDE 0.9% 10ML INJ IV PRN (13:37)
[2023-08-02] MEDS: NA CHLORIDE 0.9% 1,000 ML IV SCH (15:14)
[2023-08-02] MEDS: HYDROCODONE/APAP 5/325 MG TAB PO PRN (15:14)
[2023-08-02 15:23] VITALS: BMI 29.3
[2023-08-02 15:58] VITALS: O2SAT 95
[2023-08-02] MEDS ORDERED: METRONIDAZOLE 500mg IVPB 500 MG/100 ML BAG IV SCH ×2 (17:00→20:00)
[2023-08-02] MEDS: PIPER TAZO 3.375 GM in NA CHLORIDE 0.9% 100 ML IV SCH (17:38)
[2023-08-02] MEDS: ONDANSETRON 4 MG/2 ML VIAL IV PRN (17:38)
[2023-08-02] MEDS: KCL 20 MEQ/100 mL IVPB 20 MEQ/100 ML BAG IV SCH (21:02)
[2023-08-02] MEDS: TIZANIDINE 4 MG TABLET PO SCH (21:04)
[2023-08-02] MEDS: OXcarbazepine 150 MG TAB PO SCH (21:04)
[2023-08-02] MEDS: ROSUVASTATIN 10 MG TAB PO SCH (21:05)
[2023-08-02] MEDS: MORPHINE 2 MG/ML SYR IV PRN (22:23)
[2023-08-03 04:32] LABS: Absolute Eosinophils 0.2 K/uL (0-0.5); Absolute Lymphocytes (CBC) 2.7 K/uL (0.7-4.9); Absolute Monocytes 0.8 K/uL (0.1-1.3); Absolute Neutrophil 4.2 K/uL (1.8-8.0); Basophils % 0.6 % (0-1.3); Hematocrit 36.5 % (36.0-45.0); Hemoglobin 12.4 g/dL (12.0-15.0); MCH 31.4 pg (27.0-35.0); MCHC 33.9 g/dL (32.0-36.0); MCV 92.7 fL (80-100); MPV 8.4 fL (7.6-11.3); Monocytes % 10.5 % (3.3-12.3); Neutrophils % 52.9 % (41.7-73.7); Nucleated Red Blood Cells % 0.1 % (0-0); Platelets 190 thou/uL (152-406); RBC Red Blood Cell Count 3.94 M/uL (3.86-4.86); Red Cell Distribution Width 13.3 % (12.1-15.2)
[2023-08-03 04:35] LABS: Albumin 2.7 g/dL (3.4-5.0); Albumin/Globulin Ratio 0.8 (1.1-1.8); Anion Gap 5.8 mEq/L (5.0-15.0); Bilirubin Total 0.4 mg/dL (0.2-1.0); Globulin 3.5 g/dL (2.3-3.5); Magnesium 1.9 mg/dL (1.6-2.4); Potassium 3.8 mEq/L (3.5-5.1); Protein, Total 6.2 g/dL (6.4-8.2)
[2023-08-03] MEDS: KCL 20 MEQ/100 mL IVPB 20 MEQ/100 ML BAG IV SCH (05:27)
[2023-08-03] MEDS: LOSARTAN POTASSIUM 50 MG TABLET PO SCH (08:42)
[2023-08-03] MEDS: FUROSEMIDE 40 MG TABLET PO SCH (08:43)
[2023-08-03] MEDS: PANTOPRAZOLE 40 MG INJ IVP SCH (08:44)
[2023-08-03] MEDS: ENOXAPARIN 40 MG/0.4 ML SQ SCH (08:44)
[2023-08-03] MEDS ORDERED: FUROSEMIDE 20 MG TABLET PO SCH (09:00)
[2023-08-03] MEDS ORDERED: CEFTRIAXONE 1,000 MG in NA CHLORIDE 0.9% 50 ML IVPB SCH (09:00)
--- NOTE | 2023-08-03 09:18 | P.PN ---
Subjective Date of Service: 08/03/23 Chief Complaint: diverticulitis Subjective: No new changes (continued RLQ tenderness, especially with ambulation) <Esther Kumar - Last Filed: 08/03/23 09:16> Date of Service: 08/03/23 <Royal Tee - Last Filed: 08/03/23 11:17> Review of Systems 10-point ROS is otherwise unremarkable Gastrointestinal: Abdominal Pain, As per HPI <Esther Kumar - Last Filed: 08/03/23 09:16> Physical Examination - Vital Signs Temperature: 98.3 F Blood Pressure: 128/60 Pulse: 65 Respirations: 16 Pulse Ox (%): 96 - Physical Exam General: Alert, In no apparent distress, Oriented x3 HEENT: Atraumatic, Normocephalic Neck: 2+ carotid pulse no bruit Respiratory: Normal air movement Cardiovascular: Normal pulses, Regular rate/rhythm Capillary refill: <2 Seconds Gastrointestinal: Tenderness (RLQ) Musculoskeletal: No swelling, No contractures Integumentary: No breakdown Neurological: Normal speech, Normal tone Lymphatics: No axilla or inguinal lymphadenopathy External genitalia: Deferred Rectal: Deferred - Studies Laboratory Data (last 24 hrs) 08/02/23 08/02/23 11:09 11:09 WBC 13.80 H Hgb 14.4 Hct 43.2 Plt Count 237 Sodium 136 Potassium 3.2 L BUN 6 L Creatinine 0.80 Glucose 100 Total Bilirubin 0.6 AST 13 L ALT 20 Alkaline Phosphatase 85 Lipase 33 <Esther Kumar - Last Filed: 08/03/23 09:16> - Studies Laboratory Data (last 24 hrs) 08/02/23 08/02/23 11:09 11:09 WBC 13.80 H Hgb 14.4 Hct 43.2 Plt Count 237 Sodium 136 Potassium 3.2 L BUN 6 L Creatinine 0.80 Glucose 100 Total Bilirubin 0.6 AST 13 L ALT 20 Alkaline Phosphatase 85 Lipase 33 <Royal Tee - Last Filed: 08/03/23 11:17> Assessment And Plan - Plan Diverticulitis: NPO and advance to by morning NS at 50ml/hr Zosyn 3.375gm IVPB q 8h Follow cultures Possible abscess - Consult Dr. Saavedra TBI with Seizure disorder: Continue current home medications seizure precautions, (last seizure 2yr ago) HTN: Losartan 50mg po daily HLD: Crestor 20mg po q hs Chronic pain: [place] TID prn Tizanidine 4mg po q 12h prn GI prophylaxis: Protonix DVT prophylaxis: Lovenox <Esther Kumar - Last Filed: 08/03/23 09:16> - Plan Pt seen and examined. I agree with the note by the AUTOMOTIVE LEASING SALES REPRESENTATIVE. Will continue iv zosyn for diverticulitis with small abscess. Consulted Gen surgeon. Will continue home med for other chronic medical problems. <Royal Tee - Last Filed: 08/03/23 11:17>
--- NOTE | 2023-08-03 12:36 | EKG ---
Test Date: 2023-08-02 Test Time: 13:24:22 Physician Credentialing Specialist: STEPHANIE MEASUREMENT RESULTS: Intervals: Rate: 75 [place]: 152 QRSD: 94 QT: 390 QTc: 435 [place]: P: 47 NJ: 152 QRS: -2 T: 29 INTERPRETIVE STATEMENTS: Normal sinus rhythm Normal ECG Compared to ECG 07/21/2015 23:12:42 No significant changes Electronically Signed On 08-03-23 12:33:36 CDT by Ming Hurst
--- NOTE | 2023-08-03 13:55 | P.CNS ---
Date of Consult: 08/03/23 PC: I was asked to see this female in regards to her lower abdomen HPC: Patient presented the emergency room with severe and sudden onset of lower abdominal pain. Describes as being deep in the pelvis. Cramping in nature. Pain became very severe and she no longer stand it. PSHx: Previous hysterectomy, colonoscopy 4 years ago, known history of diverticulosis Social Hx: Allergies listed are noted Sys R: No cough, wheeze, shortness of breath. No chest pain or palpitations. Denies any urinary problems. O/E: Awake alert vital signs are stable, in good spirits HEENT: Negative Chest: Chest movement equal bilaterally Abd: Minimal tenderness in the right lower abdomen no true guarding or rebound [place]: Intact Data: CT scan demonstrates small abscess rectosigmoid region. Impression: Complications of diverticulitis Plan: The patient does not require surgical intervention at this time. I discussed with her the need for antibiotic treatment. She feels that she is much better today than she does yesterday, as a content with taking antibiotics. We discussed low fiber diet, the resolution of her symptoms, and possible need in the future for operations or procedures. A colonoscopy is recommended for her in approximately 8 to 12 weeks. She understands this.
[2023-08-04 07:30] LABS: Absolute Basophils 0.1 K/uL (0-0.5); Absolute Eosinophils 0.1 K/uL (0-0.5); Absolute Lymphocytes (CBC) 1.5 K/uL (0.7-4.9); Absolute Monocytes 0.7 K/uL (0.1-1.3); Absolute Neutrophil 4.6 K/uL (1.8-8.0); Basophils % 0.8 % (0-1.3); Eosinophils % 1.5 % (0-4.4); Hematocrit 36.8 % (36.0-45.0); Hemoglobin 12.2 g/dL (12.0-15.0); Lymphocytes % 21.3 % (15.3-44.8); MCH 30.5 pg (27.0-35.0); MCHC 33.3 g/dL (32.0-36.0); MCV 91.7 fL (80-100); MPV 8.7 fL (7.6-11.3); Neutrophils % 66.4 % (41.7-73.7); Nucleated Red Blood Cells % 0.1 % (0-0); Platelets 192 thou/uL (152-406); RBC Red Blood Cell Count 4.01 M/uL (3.86-4.86); Red Cell Distribution Width 12.9 % (12.1-15.2)
[2023-08-04 07:38] LABS: Anion Gap 6.8 mEq/L (5.0-15.0); Potassium 3.8 mEq/L (3.5-5.1)
--- NOTE | 2023-08-04 09:46 | P.PN ---
Subjective Date of Service: 08/04/23 Chief Complaint: diverticulitis Subjective: Tolerating diet (taking IV pain medications and is feeling much better), Improving <Tamie Kumardanie Lauren - Last Filed: 08/04/23 09:42> Date of Service: 08/04/23 <Royal Tee - Last Filed: 08/04/23 12:03> Review of Systems 10-point ROS is otherwise unremarkable General: As per HPI Gastrointestinal: As per HPI <StacyEstherdanie Lauren - Last Filed: 08/04/23 09:42> Physical Examination - Vital Signs Temperature: 97.2 F Blood Pressure: 131/60 Pulse: 59 Respirations: 16 Pulse Ox (%): 96 - Physical Exam General: Alert, In no apparent distress, Oriented x3 HEENT: Atraumatic, Normocephalic Neck: 2+ carotid pulse no bruit Respiratory: Normal air movement Cardiovascular: Normal pulses, Regular rate/rhythm Capillary refill: <2 Seconds Gastrointestinal: Tenderness (right lower quad - no rebound) Musculoskeletal: No swelling, No contractures Integumentary: No breakdown Neurological: Normal speech, Normal tone Lymphatics: No axilla or inguinal lymphadenopathy External genitalia: Deferred Rectal: Deferred <Tamie Kumardanie Lauren - Last Filed: 08/04/23 09:42> Assessment And Plan - Plan Diverticulitis with abdominal pain: NPO and advance to by morning, tolerated hh diet last pm NS at 100ml/hr Zosyn 3.375gm IVPB q 8h Follow cultures Possible abscess - Consult Dr. Saavedra, non surgical tx with antibiotics, colonoscopy in next 8-12 weeks prn Morphine TBI with Seizure disorder: Continue current home medications seizure precautions, (last seizure 2yr ago) HTN: Losartan 50mg po daily HLD: Crestor 20mg po q hs Chronic pain: [place] TID prn Tizanidine 4mg po q 12h prn GI prophylaxis: Protonix DVT prophylaxis: Lovenox <StacyEstherdanie Lauren - Last Filed: 08/04/23 09:42> - Plan Pt jose nd examined. I agree withe the note by the [employer]. Will continue iv zosyn. No growth on blood cx. Will need colonoscopy within the next 8 - 12 weeks <Royal Tee - Last Filed: 08/04/23 12:03>
--- NOTE | 2023-08-04 16:30 | P.PN ---
Date of Service: 08/04/23 S: Patient has no specific complaints today. However she did eat some more solid food, and it did cause her increased pain. She has cut back to her regular full liquid diet. O: Clinically patient looks much improved, remains afebrile vital signs are stable. She is much more mobile in the bed today. On clinical exam, still is tender in the right lower quadrant however rebound is considerably improved. A: Clinically patient is responding well to management with antibiotics. She is being advanced slowly on her diet. P: Continue nonsurgical management.
[2023-08-05 07:38] LABS: Absolute Basophils 0.1 K/uL (0-0.5); Absolute Eosinophils 0.1 K/uL (0-0.5); Absolute Lymphocytes (CBC) 1.3 K/uL (0.7-4.9); Absolute Monocytes 0.7 K/uL (0.1-1.3); Absolute Neutrophil 5.2 K/uL (1.8-8.0); Basophils % 0.8 % (0-1.3); Eosinophils % 1.3 % (0-4.4); Hematocrit 36.5 % (36.0-45.0); Hemoglobin 12.1 g/dL (12.0-15.0); Lymphocytes % 18.2 % (15.3-44.8); MCH 30.5 pg (27.0-35.0); MCHC 33.2 g/dL (32.0-36.0); MCV 91.9 fL (80-100); MPV 8.7 fL (7.6-11.3); Monocytes % 9.4 % (3.3-12.3); Neutrophils % 70.3 % (41.7-73.7); Nucleated Red Blood Cells % 0.1 % (0-0); Platelets 209 thou/uL (152-406); RBC Red Blood Cell Count 3.98 M/uL (3.86-4.86); Red Cell Distribution Width 12.8 % (12.1-15.2)
[2023-08-05 07:51] LABS: Albumin 2.9 g/dL (3.4-5.0); Albumin/Globulin Ratio 0.7 (1.1-1.8); Anion Gap 4.8 mEq/L (5.0-15.0); Bilirubin Total 0.2 mg/dL (0.2-1.0); Globulin 3.9 g/dL (2.3-3.5); Potassium 3.8 mEq/L (3.5-5.1); Protein, Total 6.8 g/dL (6.4-8.2)
[2023-08-05 09:16] VITALS: TEMP 97.5
--- NOTE | 2023-08-05 16:13 | P.DS ---
Admission Date: 08/02/23 Discharge Date: 08/05/23 Reason for Admission: diverticulitis Consultations: Dr. Saavedra Brief History of Present Illness: Ms. Desai is a 63-year-old female patient with a past medical history of a traumatic brain injury with resultant seizure activity, hypertension, hyperlipidemia, bipolar disorder, and chronic pain. She presents to the emergency department with a weeks long history of irritating right lower quadrant pain. It became much worse today at 2:00am and she decided to come to the ER for evaluation. When she arrived she was slightly tachycardic at 108, laboratory evaluation reveals a white count of 13.8, source of infection per CT abdomen and pelvis is diverticulitis. These markers are criteria for sepsis without shock. On CT evaluation there is a possible 1.5 cm area of abscess within the infected diverticula. Dr. Saavedra was consulted from the emergency department. After obtaining urine and blood cultures, Rocephin and Flagyl were started. We will admit her for further evaluation and treatment. Hospital Course: Ms. Desai did well over the course of the hospitalization. She advanced her diet slowly. She tolerated a soft, bland lunch. She will be discharged with Cipro 500mg po BID, Flagyl 500mg po TID, Simethicone 240mg, phenergan 25mg pr, and Dicyclomine 20mg po. She is encouraged to advance diet slowly. She must have a colonoscopy in 8-12 weeks. <Esther Kumar - Last Filed: 08/05/23 16:06> Admission Date: 08/02/23 Discharge Date: 08/05/23 Hospital Course: Pt seen and examined. I agree with the note by the PET AMBASSADOR. Pt is feeling better. Tolerating CLD. Will continue flagyl and cipro at home for 11 more days. Ok to discharge pt. <Royal Tee - Last Filed: 08/05/23 17:19> Disposition: ROUTINE DISCHARGE Discharge Condition: GOOD Vital Signs/Physical Exam: Temp Pulse Resp BP Pulse Ox 97.5 F 68 18 145/93 H 94 08/05/23 12:00 08/05/23 12:00 08/05/23 12:00 08/05/23 12:00 08/05/23 12:00 General: Alert, In no apparent distress, Oriented x3 HEENT: Atraumatic, Normocephalic Neck: JVD not distended Respiratory: Clear to auscultation bilaterally, Normal air movement Cardiovascular: Normal pulses, Regular rate/rhythm Capillary refill: <2 Seconds Gastrointestinal: Soft and benign, Tenderness (mild right lower quad) Musculoskeletal: No swelling Integumentary: No rashes Neurological: Normal speech, Normal tone Lymphatics: No axilla or inguinal lymphadenopathy External genitalia: Deferred Rectal: Deferred Laboratory Data at Discharge: WBC 7.40 thou/uL (4.3-10.9) 08/05/23 07:00 Hgb 12.1 g/dL (12.0-15.0) 08/05/23 07:00 Hct 36.5 % (36.0-45.0) 08/05/23 07:00 Plt Count 209 thou/uL (152-406) 08/05/23 07:00 Sodium 141 mEq/L (136-145) 08/05/23 07:00 Potassium 3.8 mEq/L (3.5-5.1) 08/05/23 07:00 BUN 9 mg/dL (7-18) 08/05/23 07:00 Creatinine 0.81 mg/dL (0.55-1.02) 08/05/23 07:00 Glucose 118 mg/dL (74-106) H 08/05/23 07:00 Magnesium 1.9 mg/dL (1.6-2.4) 08/03/23 03:36 Total Bilirubin 0.2 mg/dL (0.2-1.0) 08/05/23 07:00 AST 12 U/L (15-37) L 08/05/23 07:00 ALT 19 U/L (13-56) 08/05/23 07:00 Alkaline Phosphatase 67 U/L (45-117) 08/05/23 07:00 Triglycerides 179 mg/dL (<150) H 08/03/23 03:36 Cholesterol 120 mg/dL (<200) 08/03/23 03:36 HDL Cholesterol 30 mg/dL (40-60) L 08/03/23 03:36 Cholesterol/HDL Ratio 4.00 08/03/23 03:36 Lipase 33 U/L (13-75) 08/02/23 11:09 <Kumar,Esther Leonidas - Last Filed: 08/05/23 16:06> Vital Signs/Physical Exam: Temp Pulse Resp BP Pulse Ox 97.5 F 67 18 129/88 96 08/05/23 16:00 08/05/23 16:00 08/05/23 16:00 08/05/23 16:00 08/05/23 16:00 Laboratory Data at Discharge: WBC 7.40 thou/uL (4.3-10.9) 08/05/23 07:00 Hgb 12.1 g/dL (12.0-15.0) 08/05/23 07:00 Hct 36.5 % (36.0-45.0) 08/05/23 07:00 Plt Count 209 thou/uL (152-406) 08/05/23 07:00 Sodium 141 mEq/L (136-145) 08/05/23 07:00 Potassium 3.8 mEq/L (3.5-5.1) 08/05/23 07:00 BUN 9 mg/dL (7-18) 08/05/23 07:00 Creatinine 0.81 mg/dL (0.55-1.02) 08/05/23 07:00 Glucose 118 mg/dL (74-106) H 08/05/23 07:00 Magnesium 1.9 mg/dL (1.6-2.4) 08/03/23 03:36 Total Bilirubin 0.2 mg/dL (0.2-1.0) 08/05/23 07:00 AST 12 U/L (15-37) L 08/05/23 07:00 ALT 19 U/L (13-56) 08/05/23 07:00 Alkaline Phosphatase 67 U/L (45-117) 08/05/23 07:00 Triglycerides 179 mg/dL (<150) H 08/03/23 03:36 Cholesterol 120 mg/dL (<200) 08/03/23 03:36 HDL Cholesterol 30 mg/dL (40-60) L 08/03/23 03:36 Cholesterol/HDL Ratio 4.00 08/03/23 03:36 Lipase 33 U/L (13-75) 08/02/23 11:09 <Royal Tee - Last Filed: 08/05/23 17:19> Diet: AHA Activity: Ad carolina <Kumar,Esther Leonidas - Last Filed: 08/05/23 16:06> <Royal Tee - Last Filed: 08/05/23 17:19> Home Medications: Furosemide [Lasix] 40 mg PO DAILY 07/23/15 Rosuvastatin Calcium [Crestor] 20 mg PO DAILY 07/23/15 Tizanidine HCl [Zanaflex] 4 mg PO TID 07/23/15 Oxcarbazepine [Trileptal] 600 mg PO BID #28 tablet 07/24/15 Hydrocodone 7.5/APAP 325 [[place] 7.5/325 mg*] 1 tab PO TID 08/02/23 Ciprofloxacin HCl [Cipro 500 MG Tablet] 500 mg PO BID 11 Days #22 tab 08/05/23 Dicyclomine [Bentyl*] 20 mg PO BID PRN #60 cap 08/05/23 Losartan Potassium [Cozaar*] 50 mg PO DAILY 30 Days #30 tab 08/05/23 Promethazine Suppos [Phenergan -Suppos*] 25 mg [place] Q8H PRN #12 supp 08/05/23 Simethicone 125 mg PO ACHS PRN #120 cap 08/05/23 metroNIDAZOLE [Flagyl] 500 mg PO Q8H 11 Days #33 tab 08/05/23 New Medications: Dicyclomine [Bentyl*] 20 mg PO BID PRN #60 cap PRN Reason: Abdominal Cramps Ciprofloxacin HCl [Cipro 500 MG Tablet] 500 mg PO BID 11 Days #22 tab Losartan Potassium [Cozaar*] 50 mg PO DAILY 30 Days #30 tab metroNIDAZOLE [Flagyl] 500 mg PO Q8H 11 Days #33 tab Promethazine Suppos [Phenergan -Suppos*] 25 mg [place] Q8H PRN #12 supp PRN Reason: Nausea / Vomiting Simethicone 125 mg PO ACHS PRN #120 cap PRN Reason: Gas Physician Discharge Instructions: Continue ad [place] activity. Take Cipro and flagyl for 11 more days. Take home other home meds. Continue full liquid diet at home. Follow with GI within 6 weeks for colonoscopy. Follow up with PCP within 1- 2 weeks Followup: Sofiya Palafox MD [Primary Care Provider] - Boris Saavedra MD [ACTIVE - CAN ADMIT] -
[2023-08-05 17:10] VITALS: BP 129/88
== END 2023-08-05 18:00 | disposition home or self-care (01) | DRG 872 ==
LOC: ER 10:04 → ERHOLD 12:49 → 4TH 14:30
PROVIDERS: ADMIT Hospitalist; ATTEND Hospitalist
PROC: 02HV33Z Insertion of Infusion Device into Superior Vena Cava, Percutaneous Approach (ICD-10-PCS; principal; 2023-08-04)
DX: A41.9 Sepsis, unspecified organism (principal); K57.20 Diverticulitis of large intestine with perforation and abscess without bleeding; E87.6 Hypokalemia; E78.5 Hyperlipidemia, unspecified; G89.29 Other chronic pain; F17.210 Nicotine dependence, cigarettes, uncomplicated; Z88.5 Allergy status to narcotic agent; Z88.1 Allergy status to other antibiotic agents; Z88.8 Allergy status to other drugs, medicaments and biological substances; Z90.49 Acquired absence of other specified parts of digestive tract; Z86.73 Personal history of transient ischemic attack (TIA), and cerebral infarction without residual deficits; Z90.710 Acquired absence of both cervix and uterus; Z79.899 Other long term (current) drug therapy; Z86.718 Personal history of other venous thrombosis and embolism
CPT/HCPCS: 36415; 74177; 80048; 80053; 80061; 81001; 83605; 83690; 83735; 85025; 87040; 93005; 96361; 96365; 96367; 96375; 99285; C9113; J0696; J1650; J2270; J2405; J2543; J3480; J7030; Q9967

== ENCOUNTER 2023-08-16 13:08 | Emergency (ER) | payer OTHER ==
--- OUTSIDE RECORDS SUMMARY | 2023-08-16 13:12 | XMS REPORT | Continuity of Care Document ---
Author Name Unknown Address [address] [facility] [address] [place] [address] [facility] Address [address] [facility] [address] [place] [address] Care Team Providers Care Senior Analyst Programmer Name Role Phone Josiah Castano Primary Care Physician [phone] SOFIYA PALAFOX Attending Clinician Unavailable SOFIYA PALAFOX Attending Clinician Unavailable COLBY GUZMAN Attending Clinician Unavailable Lab, Ang - Db Attending Clinician Unavailable Doctor Unassigned, [place] Attending Clinician U navailable Albert Spence MD Attending Clinician ALBERT SPENCE Attending Clinician Unavail able ALBERT SPENCE Attending Clinician Unavail able Oskar Robles MD Attending Clinician [phone] Jolene Raymond DO Attending Clinician JOLENE RAYMOND Attending Clinician Unavailable JOLENE RAYMOND Attending Clinician Unavailable CELINE BRAMBILA Attending Clinician Unavaila ble Only, Adc Test Attending Clinician Unavailable Pc, Adc Echo Room 1 - Attending Clinician Unavamike samuels Radiology Attending Clinician Unavailable RADIOLOGY Attending Clinician Unavailable OSKAR ROBLES Attending Clinician Unavailable Pc, Adc Vascular Room 1 - Attending Clinician Un available BRITNEY BAIG Attending Clinician Unavaila ble Payers Payer Name Policy Type Policy Number Effective Date Expirati on Date Source [facility] [id number] 2014 00:00:00 Problems Condition Name Condition Details Condition Category Status Onset Date Resolution Date Last Treatment Date Treating Clinician Comments Source Decreased range of motion of ankle Decreased range of motion of ankle Disease Active 05-29 00:00: 00 [facility] Decreased muscle strength Decreased muscle strength Disease Active 05-29 00:00: 00 [facility] Difficulty walking Difficulty walking Disease Active 05-29 00:00: 00 Overview: Formattin g of this note might be different from the original. 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 [facility] Ankle pain Ankle pain Disease Active 05-23 00:00: 00 [facility] Chronic pain disorder Chronic pain disorder Disease Active 11-20 00:00: 00 [facility] Adjustment disorder Adjustment disorder Disease Active 11-20 00:00: 00 [facility] DVT, lower extremity DVT, lower extremity Disease Active 11-20 00:00: 00 [facility] Long-term current use of opiate analgesic Long-term current use of opiate analgesic Disease Active 11-20 00:00: 00 [facility] Bipolar 1 disorder Bipolar 1 disorder Disease Active 2011-04 00:00: 00 [facility] Seizures, post-traum atic Seizures, post-traum atic Disease Active 2011-04 00:00: 00 [facility] Pseudoseiz ure Pseudoseiz ure Disease Active 2011-04 00:00: 00 [facility] Complex partial seizure Complex partial seizure Disease Active 2011-04 00:00: 00 [facility] Pain in joint, ankle and foot Pain in joint, ankle and foot Disease Active 2011-04 00:00: 00 [facility] Cervicalgi a Cervicalgi a Disease Active 12-12 00:00: 00 [facility] Leg pain Leg pain Disease Active 12-12 00:00: 00 [facility] Gait disturbanc e Gait disturbanc e Disease Active 12-12 00:00: 00 [facility] Medication refill Medication refill Disease Active 11-03 00:00: 00 [facility] Allergies, Adverse Reactions, Alerts Allergy Name Allergy Type Status Severity Reaction(s) Onset Date Inactive Date Treating Clinician Comments Source TIZANIDI NE HCL DRUG INGREDI Active Other-Cmnt 09-20 00:00: 00 [facility] Tizanidi ne Hcl Propensi ty to adverse reaction s Active Other - See comments 09-20 00:00: 00 Blackout [facility] Pregabal in Propensi ty to adverse reaction s to drug Active Rash 09-14 00:00: 00 [facility] PREGABAL IN DRUG INGREDI Active High Rash 09-14 00:00: 00 [facility] Erythrom ycin Propensi ty to adverse reaction s Active Rash 07-04 00:00: 00 [facility] Haloperi dol Lactate Propensi ty to adverse reaction s Active Nausea and/or Vomiting 07-04 00:00: 00 [facility] Phenobar bital Propensi ty to adverse reaction s Active Other - See comments 07-04 00:00: 00 Couldn't walk or talk, doubled in blood system [facility] Tapentad ol Propensi ty to adverse reaction s Active Rash 07-04 00:00: 00 [facility] ERYTHROM YCIN DRUG Active Rash 07-04 00:00: 00 [facility] HALOPERI DOL LACTATE DRUG INGREDI Active N/V 07-04 00:00: 00 [facility] PHENOBAR BITAL DRUG INGREDI Active Other-Cmnt 07-04 00:00: 00 [facility] TAPENTAD OL DRUG INGREDI Active Rash 07-04 00:00: 00 [facility] CARBAMAZ EPINE DRUG INGREDI Active Other-Cmnt 07-04 00:00: 00 [facility] TOPIRAMA TE DRUG INGREDI Active Other-Cmnt 07-04 00:00: 00 [facility] Carbamaz epine Propensi ty to adverse reaction s Active Other - See comments 07-04 00:00: 00 Went toxic [facility] Topirama te Propensi ty to adverse reaction s Active Other - See comments 07-04 00:00: 00 Vision changes [facility] Social History Social Habit Start Date Stop Date Quantity Comments Source History of tobacco use Cigarette Smoker [facility] Alcohol intake 2023-05-06 00:00:00 2023-05-06 00:00:00 Current non-drinker of alcohol (finding) [facility] History of Social function 2022-11-25 00:00:00 2022-11-25 00:00:00 [facility] Exposure to SARS-CoV-2 (event) 2022-07-23 00:00:00 2022-08-02 09:35:00 Not sure [facility] Cigarettes smoked current (pack per day) - Reported 2022-08-02 00:00:00 2022-08-02 00:00:00 [facility] Tobacco use and exposure 2022-08-02 00:00:00 2022-08-02 00:00:00 Smokeless tobacco non-user [facility] Cigarette pack-years 2022-08-02 00:00:00 2022-08-02 00:00:00 [facility] Sex Assigned At 1960 00:00:00 1960 00:00:00 [facility] Smoking Status Start Date Stop Date Source Occasional tobacco smoker 2022-08-02 00:00:00 [facility] Medications Ordered Medication Name Filled Medication Name Start Date Stop Date Current Medication? Ordering Clinician Indication Dosage Frequency Signature (SIG) Comments Components Source tiZANidine 4 mg tablet 2022-04 2- 00:00: 00 Yes [id number] 4mg Take 1 tablet by mouth every 6 (six) hours as needed for Pain (scale 4-6). [facility] Diclofenac Sodium 1 % gel 2022-04 0 00:00: 00 Yes Apply to affected area(s) 2 (two) times daily. [facility] ubrogepant (UBRELVY) 100 mg Tab 2022-04 0- 00:00: 00 02-08 00:00 :00 No [id number] TAKE 1 TABLET NEEDED FOR HEADACHE. IF SYMPTOMS PERSIST MAY REPEAT DOSE AFTER 2 HR. MAX 2 TABS IN 24HR...PA DENIED [facility] OXcarbazepi ne (TRILEPTAL) 600 mg tablet 2022-04 0 00:00: 00 Yes [id number] 600mg Take 1 tablet by mouth in the morning and 1 tablet in the evening. [facility] propranoloL 20 mg tablet 2022-04 00:00: 00 04-12 00:00 :00 No [id number] 20mg Take 1 tablet by mouth in the morning and 1 tablet in the evening. [facility] ubrogepant 100 mg Tab 2022-04 00:00: 00 02-02 00:00 :00 No [id number] 100mg Take 1 tablet by mouth as needed for Other (Headache) for up to 64 doses. If symptoms persist or return, may repeat dose after 2 hours. Maximum: 200 mg per 24 hours [facility] diclofenac sodium (PENNSAID TOPICAL) 01-06 11:01: 41 Yes Apply to area(s). [facility] losartan 50 mg tablet 01-06 00:00: 00 Yes [id number] 50mg Take 1 tablet by mouth in the morning. [facility] furosemide 40 mg tablet 11-26 00:00: 00 Yes [id number] 40mg Take 1 tablet by mouth in the morning. [facility] rosuvastati n 20 mg tablet - 00:00: 00 Yes [id number] 20mg Take 1 tablet by mouth at bedtime. [facility] rosuvastati n (CRESTOR) 20 mg tablet 11-25 09:31: 15 11-25 00:00 :00 No 20mg Take 1 tablet by mouth at bedtime. [facility] lactulose 10 gram/15 mL solution 11-25 09:18: 15 11-25 00:00 :00 No 30mL Take 30 mL by mouth 2 (two) times daily as needed for Constipati on. [facility] hydrocortis one 1 % cream 11-25 09:18: 09 11-25 00:00 :00 No Apply to affected area(s) every 12 (twelve) hours. [facility] dimethicone (BLISTEX TOPICAL) 11-25 09:17: 56 11-25 00:00 :00 No Apply to area(s) daily. [facility] diclofenac sodium (PENNSAID TOPICAL) 11-25 08:34: 45 Yes Apply to area(s). [facility] Blood Pressure Monitor (BLOOD PRESSURE KIT) Kit 11-25 00:00: 00 Yes [id number] Use as directed twice daily to check blood pressure. [facility] tiZANidine 4 mg tablet 11-25 00:00: 00 04-12 00:00 :00 No [id number] 4mg Take 1 tablet by mouth every 6 (six) hours as needed for Pain (scale 4-6). [facility] terbinafine HCL 250 mg tablet 11-25 00:00: 00 04-12 00:00 :00 No [id number] 250mg Take 1 tablet by mouth in the morning. [facility] rosuvastati n 20 mg tablet 11-25 00:00: 00 11-26 00:00 :00 No [id number] 20mg Take 1 tablet by mouth at bedtime. [facility] OXcarbazepi ne (TRILEPTAL) 600 mg tablet 410 00:00: 00 02-01 00:00 :00 No [id number] 600mg Take 1 tablet by mouth in the morning and 1 tablet in the evening. [facility] Lysine 500 mg Tab 2020-04 10:04: 52 03-13 00:00 :00 No Take by mouth daily. [facility] acetaminoph en 500 mg tablet 2020-04 10:02: 29 03-13 00:00 :00 No 500mg Take 500 mg by mouth every 6 (six) hours as needed for Pain. [facility] Butalbital- Acetaminoph en-Caff 50-300-40 mg per capsule 2020-04 0-05 00:00: 00 08-02 00:00 :00 No [facility] diclofenac sodium (PENNSAID TOPICAL) 11-14 15:21: 24 Yes Apply to area(s). [facility] hydrocortis one 1 % cream 10-15 15:44: 09 Yes Apply to affected area(s) every 12 (twelve) hours. [facility] lactulose 10 gram/15 mL solution 10-15 15:44: 09 Yes 30mL Take 30 mL by mouth 2 (two) times daily as needed for Constipati on. [facility] dimethicone (BLISTEX TOPICAL) 10-15 15:44: 09 Yes Apply to area(s) daily. [facility] rosuvastati n (CRESTOR) 20 mg tablet 10-15 15:40: 02 Yes 20mg Take 20 mg by mouth at bedtime. [facility] triamcinolo ne acetonide 0.1 % cream 12-15 00:00: 00 11-25 00:00 :00 No 2 (two) times daily. [facility] OXcarbazepi ne (TRILEPTAL) 600 mg tablet 04-30 00:00: 00 08-02 00:00 :00 No [id number] 600mg Take 1 tablet by mouth 2 (two) times daily. [facility] lamoTRIgine 150 mg tablet 04-26 00:00: 00 03-13 00:00 :00 No [id number] 150mg Take 1 tablet by mouth 2 (two) times daily. [facility] HYDROcodone -acetaminop hen 7.5-325 mg per tablet 2015-04 00:00: 00 Yes 1{tbl} 1 tablet 3 (three) times daily as needed. [facility] furosemide (LASIX) 40 mg tablet 2015-04 00:00: 00 11-26 00:00 :00 No 40mg Take 1 tablet by mouth in the morning. [facility] KCL (KLOR-CON M10) 10 mEq tablet 2015-04 00:00: 00 03-13 00:00 :00 No [facility] clonazePAM (KLONOPIN) 2 mg tablet 09-03 00:00: 00 11-25 00:00 :00 No [id number] 2mg Take 1 Tab by mouth 2 (two) times daily. [facility] CYMBALTA 60 mg capsule 2012-04 00:00: 00 11-25 00:00 :00 No TAKE ONE CAPSULE EVERY DAY [facility] pantoprazol e (PROTONIX) 40 mg EC tablet 2012-04 00:00: 00 11-25 00:00 :00 No [id number] 40mg Take 1 Tab by mouth daily. [facility] Immunizations Ordered Immunization Name Filled Immunization Name Date Status Comments Source Td 2015-09-21 00:00:00 Completed [facility] TD, NOS 2015-09-21 00:00:00 Completed [facility] TD, NOS 2015-09-21 00:00:00 Completed [facility] TD, NOS 2015-09-21 00:00:00 Completed [facility] TD, NOS 2015-09-21 00:00:00 Completed [facility] TD, NOS 2015-09-21 00:00:00 Completed [facility] TD, NOS 2015-09-21 00:00:00 Completed [facility] TD, NOS 2015-09-21 00:00:00 Completed [facility] TD, NOS 2015-09-21 00:00:00 Completed [facility] TD, NOS 2015-09-21 00:00:00 Completed [facility] TD, NOS 2015-09-21 00:00:00 Completed [facility] TD, NOS 2015-09-21 00:00:00 Completed [facility] Influenza Intradermal Vaccine 2013-01-24 00:00:00 Completed [facility] Influenza Intradermal Vaccine 2013-01-24 00:00:00 Completed [facility] Influenza Intradermal Vaccine 2013-01-24 00:00:00 Completed [facility] Influenza Intradermal Vaccine 2013-01-24 00:00:00 Completed [facility] Influenza Intradermal Vaccine 2013-01-24 00:00:00 Completed [facility] Influenza Intradermal Vaccine 2013-01-24 00:00:00 Completed [facility] Influenza Intradermal Vaccine 2013-01-24 00:00:00 Completed [facility] Influenza Intradermal Vaccine 2013-01-24 00:00:00 Completed [facility] Influenza Intradermal Vaccine 2013-01-24 00:00:00 Completed [facility] Influenza Intradermal Vaccine 2013-01-24 00:00:00 Completed [facility] Influenza Intradermal Vaccine 2013-01-24 00:00:00 Completed [facility] Influenza Intradermal Vaccine 2013-01-24 00:00:00 Completed [facility] Influenza Virus Vaccine 2012-03-15 00:00:00 Completed [facility] Influenza Virus Vaccine 2012-03-15 00:00:00 Completed [facility] Influenza Virus Vaccine 2012-03-15 00:00:00 Completed [facility] Influenza Virus Vaccine 2012-03-15 00:00:00 Completed [facility] Influenza Virus Vaccine 2012-03-15 00:00:00 Completed [facility] Influenza Virus Vaccine 2012-03-15 00:00:00 Completed [facility] Influenza Virus Vaccine 2012-03-15 00:00:00 Completed [facility] Influenza Virus Vaccine 2012-03-15 00:00:00 Completed [facility] Influenza Virus Vaccine 2012-03-15 00:00:00 Completed [facility] Influenza Virus Vaccine 2012-03-15 00:00:00 Completed [facility] Influenza Virus Vaccine 2012-03-15 00:00:00 Completed [facility] Influenza Virus Vaccine 2012-03-15 00:00:00 Completed [facility] Influenza Virus Vaccine Unknown Completed [facility] Influenza Intradermal Vaccine Unknown Completed [facility] TD, NOS Unknown Completed [facility] Influenza Virus Vaccine Unknown Completed [facility] Influenza Intradermal Vaccine Unknown Completed [facility] TD, NOS Unknown Completed [facility] Influenza Virus Vaccine Unknown Completed [facility] Influenza Intradermal Vaccine Unknown Completed [facility] TD, NOS Unknown Completed [facility] Influenza Virus Vaccine Unknown Completed [facility] Influenza Intradermal Vaccine Unknown Completed [facility] TD, NOS Unknown Completed [facility] Influenza Virus Vaccine Unknown Completed [facility] Influenza Intradermal Vaccine Unknown Completed [facility] TD, NOS Unknown Completed [facility] Influenza Virus Vaccine Unknown Completed [facility] Influenza Intradermal Vaccine Unknown Completed [facility] TD, NOS Unknown Completed [facility] Influenza Virus Vaccine Unknown Completed [facility] Influenza Intradermal Vaccine Unknown Completed [facility] TD, NOS Unknown Completed [facility] Influenza Virus Vaccine Unknown Completed [facility] Influenza Intradermal Vaccine Unknown Completed [facility] TD, NOS Unknown Completed [facility] Influenza Virus Vaccine Unknown Completed [facility] Influenza Intradermal Vaccine Unknown Completed [facility] TD, NOS Unknown Completed [facility] Influenza Virus Vaccine Unknown Completed [facility] Influenza Intradermal Vaccine Unknown Completed [facility] TD, NOS Unknown Completed [facility] Influenza Virus Vaccine Unknown Completed [facility] Influenza Intradermal Vaccine Unknown Completed [facility] TD, NOS Unknown Completed [facility] TDAP Unknown Completed [facility] Influenza Virus Vaccine Unknown Completed [facility] Influenza Intradermal Vaccine Unknown Completed [facility] TD, NOS Unknown Completed [facility] TDAP Unknown Completed [facility] Influenza Virus Vaccine Unknown Completed [facility] Influenza Intradermal Vaccine Unknown Completed [facility] TD, NOS Unknown Completed [facility] TDAP Unknown Completed [facility] Influenza Virus Vaccine Unknown Completed [facility] Influenza Intradermal Vaccine Unknown Completed [facility] TD, NOS Unknown Completed [facility] TDAP Unknown Completed [facility] Influenza Virus Vaccine Unknown Completed [facility] Influenza Intradermal Vaccine Unknown Completed [facility] TD, NOS Unknown Completed [facility] TDAP Unknown Completed [facility] Influenza Virus Vaccine Unknown Completed [facility] Influenza Intradermal Vaccine Unknown Completed [facility] TD, NOS Unknown Completed [facility] TDAP Unknown Completed [facility] Influenza Virus Vaccine Unknown Completed [facility] Influenza Intradermal Vaccine Unknown Completed [facility] TD, NOS Unknown Completed [facility] Influenza Virus Vaccine Unknown Completed [facility] Influenza Intradermal Vaccine Unknown Completed [facility] TD, NOS Unknown Completed [facility] Vital Signs Vital Name Observation Time Observation Value Comments S ource Systolic blood pressure 2023-05-06 19:27:00 125 mm[Hg] [facility] Diastolic blood pressure 2023-05-06 19:27:00 83 mm[Hg] [facility] Heart rate 2023-05-06 19:27:00 65 /min [facility] Body temperature 2023-05-06 19:27:00 36.61 Maegan [facility] Body height 2023-05-06 19:27:[address] [facility] Body weight 2023-05-06 19:27:[address] [facility] BMI 2023-05-06 19:27:00 29.25 kg/m2 [facility] Oxygen saturation in Arterial blood by Pulse oximetry 2023-05-06 19:27:00 96 /min [facility] Systolic blood pressure 2023-04-12 15:54:00 129 mm[Hg] [facility] Diastolic blood pressure 2023-04-12 15:54:00 80 mm[Hg] [facility] Heart rate 2023-04-12 15:54:00 77 /min [facility] Body temperature 2023-04-12 15:54:00 36.56 Maegan [facility] Body height 2023-04-12 15:54:[address] [facility] Body weight 2023-04-12 15:54:[address] [facility] BMI 2023-04-12 15:54:00 29.82 kg/m2 [facility] Oxygen saturation in Arterial blood by Pulse oximetry 2023-04-12 15:54:00 96 /min [facility] Systolic blood pressure 2023-03-07 15:10:00 135 mm[Hg] [facility] Diastolic blood pressure 2023-03-07 15:10:00 73 mm[Hg] [facility] Heart rate 2023-03-07 15:10:00 59 /min [facility] Respiratory rate 2023-03-07 15:10:00 18 /min [facility] Body height 2023-03-07 15:10:[address] [facility] Body weight 2023-03-07 15:10:[address] [facility] BMI 2023-03-07 15:10:00 29.97 kg/m2 [facility] Oxygen saturation in Arterial blood by Pulse oximetry 2023-03-07 15:10:00 96 /min [facility] Systolic blood pressure 2023-02-08 15:20:00 124 mm[Hg] [facility] Diastolic blood pressure 2023-02-08 15:20:00 71 mm[Hg] [facility] Heart rate 2023-02-08 15:20:00 62 /min [facility] Body temperature 2023-02-08 15:20:00 36.44 Maegan [facility] Body height 2023-02-08 15:20:00 172.7 cm [facility] 2023-02-08 15:20:[address] [facility] BMI 2023-02-08 15:20:00 30.67 kg/m2 [facility] Oxygen saturation in Arterial blood by Pulse oximetry 2023-02-08 15:20:00 96 /min [facility] Systolic blood pressure 2023-02-01 14:19:00 158 mm[Hg] [facility] Diastolic blood pressure 2023-02-01 14:19:00 92 mm[Hg] [facility] Heart rate 2023-02-01 14:11:00 81 /min [facility] Body height 2023-02-01 14:11:00 172.7 cm [facility] [facility] Body weight 2023-02-01 14:11:00 91.128 kg [facility] 2023-02-01 14:11:00 30.55 kg/m2 Univ [facility] Oxygen saturation in Arterial blood by Pulse oximetry 2023-02-01 14:11:00 96 /min [facility] Systolic blood pressure 2023-01-06 16:01:00 151 mm[Hg] [facility] Diastolic blood pressure 2023-01-06 16:01:00 92 mm[Hg] [facility] Heart rate 2023-01-06 15:52:00 65 /min [facility] Body temperature 2023-01-06 15:52:00 36.22 Maegan [facility] Body height 2023-01-06 15:52:[address] [facility] Body weight 2023-01-06 15:52:[address] [facility] BMI 2023-01-06 15:52:00 30.29 kg/m2 Univ [facility] Oxygen saturation in Arterial blood by Pulse oximetry 2023-01-06 15:52:00 96 /min [facility] Systolic blood pressure 2022-11-25 13:34:00 178 mm[Hg] [facility] Diastolic blood pressure 2022-11-25 13:34:00 96 mm[Hg] [facility] Heart rate 2022-11-25 13:09:00 77 /min [facility] Body temperature 2022-11-25 13:09:00 36.61 Maegan [facility] Body height 2022-11-25 13:09:00 172.7 cm [facility] Body weight 2022-11-25 13:09:00 90.266 kg [facility] BMI 2022-11-25 13:09:00 30.26 kg/m2 [facility] Oxygen saturation in Arterial blood by Pulse oximetry 2022-11-25 13:09:00 97 /min [facility] Systolic blood pressure 2022-08-02 15:06:00 130 mm[Hg] [facility] Diastolic blood pressure 2022-08-02 15:06:00 83 mm[Hg] [facility] Heart rate 2022-08-02 15:06:00 76 /min [facility] Body height 2022-08-02 15:06:[address] [facility] Body weight 2022-08-02 15:06:[address] [facility] BMI 2022-08-02 15:06:00 28.40 kg/m2 [facility] Systolic blood pressure 2021-03-13 15:58:00 118 mm[Hg] [facility] Diastolic blood pressure 2021-03-13 15:58:00 70 mm[Hg] [facility] Heart rate 2021-03-13 15:58:00 80 /min [facility] Respiratory rate 2021-03-13 15:58:00 20 /min [facility] Body height 2021-03-13 15:58:[address] [facility] Body weight 2021-03-13 15:58:[address] [facility] BMI 2021-03-13 15:58:00 28.90 kg/m2 [facility] Oxygen saturation in Arterial blood by Pulse oximetry 2021-03-13 15:58:00 99 /min [facility] Procedures Procedure Date / Time Performed Performing Clinician Source TDAP VACCINE, >11 YRS, IM 2023-04-12 16:03:[address] [facility] BI SCREENING TOMOSYNTHESIS BILATERAL 2023-03-11 16:53:54 Javy [facility] Encounters Start Date/Time End Date/Time Encounter Type Admission Type Attending Clinicians Care Facility Care Department Encounter ID Source 2023-09-05 09:30:00 2023-09-05 09:30:00 Outpatient COLBY INIGUZEMB [facility] [id number] [facility] 2023-08-09 14:00:16 2023-08-09 14:00:16 Outpatient SFA S[facility] [id number] Jimenez Rahman 2023-08-08 10:26:57 2023-08-08 10:26:57 Outpatient SFA SFA [id number] Jimenez Rahman 2023-08-02 00:00:00 2023-08-02 00:00:00 Telephone Sofiya Palafox [facility] 1.2.840.114 350.1.13.10 4.2.7.2.686 [id number] [facility] 2023-08-01 09:09:03 2023-08-01 09:09:03 Outpatient SFA SFA [id number] Jimenez Rahman 2023-07-26 13:00:28 2023-07-26 13:00:28 Outpatient SFA SFA [id number] Jimenez Rahman 2023-07-19 13:01:00 2023-07-19 13:01:00 Outpatient SFA SFA [id number] Jimenez Rahman 2023-07-18 11:21:16 2023-07-18 11:21:16 Outpatient SFA SFA [id number] Jimenez Rahman 2023-07-12 13:08:51 2023-07-12 13:08:51 Outpatient SFA SFA [id number] Jimenez Rahman 2023-07-05 13:05:40 2023-07-05 13:05:40 Outpatient SFA SFA [id number] Jimenez Rahman 2023-06-28 13:02:56 2023-06-28 13:02:56 Outpatient SFA SFA [id number] Jimenez Rahman 2023-06-27 11:27:06 2023-06-27 11:27:06 Outpatient SFA SFA [id number] Jimenez Rahman 2023-06-21 13:16:31 2023-06-21 13:16:31 Outpatient SFA SFA [id number] Jimenez Rahman 2023-06-14 13:01:29 2023-06-14 13:01:29 Outpatient SFA SFA [id number] Jimenez Rahman 2023 13:14:53 2023 13:14:53 Outpatient SFA SFA [id number] Jimenez Rahman 2023-05-24 13:02:49 2023-05-24 13:02:49 Outpatient SFA SFA [id number] Jimenez Rahman 2023-05-06 13:20:00 2023-05-06 13:47:36 Outpatient R JULIADanieSOFIYA [facility] [id number] [facility] 2023-05-06 13:20:00 2023-05-06 13:47:36 Office Visit Sfoiya Palafox [facility] 1.2.840.114 350.1.13.10 4.2.7.2.686 [id number] [facility] 2023-05-02 10:18:56 2023-05-02 10:18:56 Outpatient SFA [facility] [id number] Jimenez Rahman 2023-04-12 10:20:00 2023-04-12 10:40:00 Office Visit JuliadanieSofiya [facility] 1.2.840.114 350.1.13.10 4.2.7.2.686 [id number] [facility] 2023-04-12 10:20:00 2023-04-12 10:20:00 Outpatient R JULIADanieSOFIYA [facility] [id number] [facility] 2023-03-28 09:23:41 2023-03-28 09:23:41 Outpatient SFA SFA [id number] Jimenez Rahman 2023-03-11 10:30:44 2023-03-11 23:59:00 [facility] 1..840.114 350.1.13.10 4.2.7.2.686 [id number] [facility] 2023-03-11 10:28:56 2023-03-11 10:29:00 Outpatient R SOFIYA PALAFOX [facility] [id number] [facility] 2023-03-11 10:28:56 2023-03-11 10:29:00 Hospital Encounter Sofiya Palafox [facility] 1.84.114 350.1.13.10 4.2.7.2.686 [id number] [facility] 2023-03-07 10:30:00 2023-03-07 10:30:00 Ad Operations Specialist Visit Lab, Lorenzo Nelson Megan [facility] 1.84.114 350..13.10 4.2.7.2.686 [id number] [facility] 2023-03-07 09:30:00 2023-03-07 10:02:59 Outpatient R MEGAN [facility] [id number] [facility] 2023-03-07 09:30:00 2023-03-07 10:02:59 Office Visit Megan [facility] 1.840.114 350.1.13.10 4.2.7.2.686 [id number] [facility] 2023-02-08 10:20:00 2023-02-08 11:13:34 Outpatient R SOFIYA PALAFOX [facility] [id number] [facility] 2023-02-08 10:20:00 2023-02-08 11:13:34 Office Visit Javy [facility] 1.84.114 350.1.13.10 4.2.7.2.686 [id number] [facility] 2023-02-01 10:00:00 2023-02-01 10:00:00 [facility] 1.2.840.114 350.1.13.10 4.2.7.2.686 [id number] [facility] 2023-02-01 10:00:00 2023-02-01 09:41:16 Outpatient R MEGAN [facility] [id number] [facility] 2023-02-01 00:00:00 2023-02-01 00:00:00 Refill Megan [facility] 1..840.114 350.1.13.10 4.2.7.2.686 [id number] [facility] 2023-02-01 00:00:00 2023-02-01 00:00:00 Telephone Megan [facility] 1..840.114 350.1.13.10 4.2.7.2.686 [id number] [facility] 2023-01-06 11:30:00 2023-01-06 11:45:00 Ad Operations Specialist Visit Lab, Ang - Db Javy [facility] 1..840.114 350.1.13.10 4.2.7.2.686 [id number] [facility] 2023-01-06 11:00:00 2023-01-06 11:33:54 Office Visit Javy [facility] 1.2.840.114 350.1.13.10 4.2.7.2.686 [id number] [facility] 2023-01-06 11:30:00 2023-01-06 11:30:00 Outpatient R SOFIYA PALAFOX [facility] [id number] [facility] 2023-01-06 00:00:00 2023-01-06 00:00:00 Letter (Out) Doctor Unassigned, [place] [facility] 1.2840.114 350.1.13.10 4.2.7.2.686 [id number] [facility] 2023-01-06 00:00:00 2023-01-06 00:00:00 Letter (Out) Doctor Unassigned, [place] [facility] 1.2840.114 350.1.13.10 4.2.7.2.686 [id number] [facility] 2023-01-03 09:23:55 2023-01-03 09:23:55 Outpatient [place] [id number] Jimenez Mercado Josiah 2022-12-20 09:47:52 2022-12-20 09:47:52 Outpatient SFA [facility] [id number] Jimenez Mercado [place] 2022-11-29 09:59:02 2022-11-29 09:59:02 Outpatient [facility] [id number] Jimenez Mercado Josiah 2022-11-26 00:00:00 2022-11-26 00:00:00 Telephone Javy [facility] 1..840.114 350.1.13.10 4.2.7.2.686 [id number] [facility] 2022-11-25 08:40:00 2022-11-25 09:20:00 Office Visit Javy [facility] 1..840.114 350.1.13.10 4.2.7.2.686 [id number] [facility] 2022-11-25 08:40:00 2022-11-25 08:40:00 Outpatient R KLESOFIYA Tobar [facility] [id number] [facility] 2022-11-01 09:32:07 2022-11-01 09:32:07 Outpatient [facility] [id number] Jimenez Rahman 2022-08-02 10:45:00 2022-08-02 11:00:00 Ad Operations Specialist Visit Lab, [facility] 1.840.114 350.1.13.10 4.2.7.2.686 [id number] [facility] 2022-08-02 09:40:00 2022-08-02 10:50:10 Outpatient ALBERT BAIG HOWARD [facility] [id number] [facility] 2022-08-02 09:40:00 2022-08-02 10:50:10 Office Visit [facility] 1.840.114 350.1.13.10 4.2.7.2.686 [id number] [facility] 2021-03-13 10:00:00 2021-03-13 10:43:14 Outpatient ALBERT BAIG HOWARD [facility] [id number] [facility] 2021-03-13 09:37:39 2021-03-13 10:43:14 Office Visit Be[facility] 1..840.114 350.1.13.10 4.2.7.2.686 [id number] [facility] 2021-03-13 00:00:00 2021-03-13 00:00:00 Orders Only Doctor Unassigned, [place] [facility] 1.840.114 350.1.13.10 4.2.7.2.686 [id number] [facility] 2020-01-31 00:00:00 2020-01-31 00:00:00 [facility] 1.2.840.114 350.1.13.10 4.2.7.2.686 [id number] 2020-01-31 00:00:00 2020-01-31 00:00:00 [facility] 1.2.840.114 350.1.13.10 4.2.7.2.686 [id number] [facility] 2020-01-25 15:00:23 2020-01-25 16:25:38 Office Visit Justina Raymondmatti [facility] 1.2.840.114 350.1.13.10 4.2.7.2.686 [id number] 2020-01-25 15:00:23 2020-01-25 16:25:38 Office Visit [facility] 1.2.840.114 350.1.13.10 4.2.7.2.686 [id number] [facility] 2020-01-25 15:40:00 2020-01-25 15:40:00 Outpatient R JOLENE RAYMOND [facility] [id number] [facility] 2020-01-25 00:00:00 2020-01-25 00:00:00 Orders Only Doctor Unassigned, [place] [facility] 1.2.840.114 350.1.13.10 4.2.7.2.686 [id number] 2020-01-25 00:00:00 2020-01-25 00:00:00 Orders Only Doctor Unassigned, [place] [facility] 1.2.840.114 350.1.13.10 4.2.7.2.686 [id number] [facility] 2020-01-22 00:00:00 2020-01-22 00:00:[address] [facility] 1.840.114 350.1.13.10 4.2.7.2.686 [id number] [facility] 2020-01-17 15:00:00 2020-01-17 15:00:00 [facility] [id number] [facility] 2020-01-17 10:40:00 2020-01-17 10:40:00 Outpatient R MANDI [facility] [id number] [facility] 2020-01-11 15:30:00 2020-01-11 15:30:00 Outpatient R CELINE BRAMBILA [facility] [id number] [facility] 2020-01-07 14:56:15 2020-01-07 15:11:15 Ad Operations Specialist Visit Only, Adc Test Jolene Raymond [facility] 1.84.114 350.1.13.10 4.2.7.2.686 [id number] [facility] 2020-01-07 14:30:00 2020-01-07 14:30:00 Outpatient R [facility] [id number] [facility] 2020-01-07 00:00:00 2020-01-07 00:00:00 Orders Only Doctor Unassigned, [place] [facility] 1..114 350.1.13.10 4.2.7.2.686 [id number] [facility] 2019-11-07 16:07:56 2019-11-16 13:07:58 Laboratory Only Pc, Adc Echo Room 1 - [facility] 1..840.114 350.1.13.10 4.2.7.2.686 [id number] [facility] 2019-11-16 00:00:00 2019-11-16 00:00:00 Telephone Kimberley Raymondvikki [facility] 1.2.840.114 350.1.13.10 4.2.7.2.686 [id number] [facility] 2019-11-15 14:48:51 2019-11-15 16:32:01 Office Visit [facility] 1.2.840.114 350.1.13.10 4.2.7.2.686 [id number] [facility] 2019-11-15 15:00:00 2019-11-15 15:00:00 Outpatient R [facility] [id number] [facility] 2019-11-13 14:20:00 2019-11-13 23:59:00 Hospital Encounter Radiology [facility] 1.2.840.114 350.1.13.10 4.2.7.2.686 [id number] [facility] 2019-11-13 14:28:15 2019-11-13 14:28:15 Outpatient R RADIOLOGY [facility] [id number] [facility] 2019-11-07 16:00:00 2019-11-07 16:00:00 Outpatient R OSKAR ROBLES [facility] [id number] [facility] 2019-11-07 00:00:00 2019-11-07 00:00:00 [facility] 1.2.840.114 350.1.13.10 4.2.7.2.686 [id number] [facility] 2019-11-01 14:00:00 2019-11-01 14:00:00 Outpatient R JOLENE RAYMOND SHITXMatti [facility] [id number] [facility] 2019-11-01 00:00:00 2019-11-01 00:00:00 [facility] 1.2.840.114 350.1.13.10 4.2.7.2.686 [id number] [facility] 2019-10-29 14:53:09 2019-10-29 15:53:09 Ad Operations Specialist Visit Pc, Adc Vascular Room 1 [facility] 1.2.840.114 350.1.13.10 4.2.7.2.686 [id number] [facility] 2019-10-29 15:00:00 2019-10-29 15:00:00 Outpatient R [facility] [id number] [facility] 2019-10-16 15:03:21 2019-10-16 16:15:38 [facility] 1.2.840.114 350.1.13.10 4.2.7.2.686 [id number] [facility] 2019-10-16 15:00:00 2019-10-16 15:00:00 [facility] [id number] [facility] 2019-10-16 00:00:00 2019-10-16 00:00:00 Orders Only Doctor Unassigned, [place] [address].2.840.114 350.1.13.10 4.2.7.2.686 [id number] [facility] 2019-09-19 00:00:00 2019-09-19 00:00:00 Orders Only Doctor Unassigned, [place] [facility] 1.2.840.114 350.1.13.10 4.2.7.2.686 [id number] [facility] 2014-07-23 09:30:00 2014-07-23 09:30:00 Outpatient R BRITNEY BAIG [facility] [id number] [facility] Notes Date/Time Note Provider Source 2023-08-02 14:48:37 YKlaPVMRV/IjPvySWBzx j4otwTBNTc JblTyFhp9QrBZq0c5K0Z+Q2uadY7Kt 5G+z7593-00-33U35:48:37Formatt ing of this note might be different from the original.External radiology reports from [facility] uploaded into pts chart and placed into providers box 50020-8Sonjjlkik encounter KkcqFF8785-11-19D38:51:30Telep shelbi encounter NoteTXT1.2.840.465511.1.13.104 .2.7.2.245710|[id number] lable for patient takv64783-4RcgwDRWFCAXQTIYNibg atted C-CDA narrative rzge570887356Mvlhkt [address] MaceKcoefsimvUlvsykwkjJYQP1882 807680PEDIELBJJAYQXKKPXZQOBO01 16-08-084:51:301.2.840.20312 0.1.72.3.15|1.2.840.081086.1.1 3.104.2.7.2.727879_[id number] Gaby Wynn [facility] 2023-01-06 11:30:00 aY8EwUosfw6ruMokXZuo dP1yC8uLQ8 EwO3+GPXmnB2V9oySSShVSHsm35G7k aqHv4121-25-65A23:30:00Formatt ing of this note is different from the original.Images from the original note were not included.Venipuncture collection performed by clean technique on the right anticubitus. Total of 1 attempts were made. Slight pressure and a bandage/dressing were applied to the site(s). The patient experienced no complications. The following specimens were processed according to instructions and sent to [facility] laboratories per lab order on 01/06/2023 : LT BLUE SST 2 RED LAV PPT DK GREEN (LiHep) DK GREEN (SodH) ARIAS DK BLUE (K2) DK BLUE (S) ACD Blood Culture NIPT/NTD 56002-5Pzjdu FgneUX5965-55-91F81:45:47Nurse NoteTXT1.2.840.250110.1.13.104 .2.7.2.375171|[id number] lable for patient becd41296-9Aixbg Note[address] 120809JIBLTQXJHXMAHTSOQVYLGU40 15-01-141:45:471.2.840.94626 0.1.72.3.15|1.2.840.827740.1.1 3.104.2.7.2.727879_[id number] [facility] 2022-11-29 15:23:07 31cX7fR+jZOpW5PSTxCn i7uKd+mqZa 3qJFLpP+nIyF0mxZll6YthFdSJux2G pY0+5079-60-51Z31:23:07Formatt ing of this note might be different from the original.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 I will see if it can be specific to department but it is under FYI flag which triggers the banner. I will find out - thank you! 84108-7Zplvorduo encounter HuthGF9107-47-91N94:25:50Telep shelbi encounter NoteTXT1.2.840.569836.1.13.104 .2.7.2.604847|[id number] lable for patient kgzj02792-0JuxgKA553428833Fvkm adam CYR[address]TX[address] 130978LHPUKXAOITJBEQYPIJNOZY64 15-12-065:25:501.2.840.80220 0.1.72.3.15|1.2.840.156292.1.1 3.104.2.7.2.727879_[id number] Bren Bird RN [facility] 2022-11-26 17:20:16 H2kFUwVsi+ZOO8SdLYIZ vOmeD8LUcD 7v5VNQWO1+HlhKX0T/GL3zRQohvLiq Fs3P9531-82-26L79:20:16Formatt ing of this note might be different from the original.Sent, BTW there is a banner that says "dismissed from practice." Can you speak with kathleen or bren as to why or if we can get it changed in the system. 81794-0Wcrujvmjm encounter TaafNZ4533-82-60I90:21:32Telep shelbi encounter NoteTXT1.2.840.162393.1.13.104 .2.7.2.062114|[id number] [facility] patient rmwk41167-9QhnxWTIVDRPHJX[address]GalvestonTXTX[address] 852383OORVPTIZYFZRRDXDJLIKCV23 16-12-037:21:321.2.840.74821 0.1.72.3.15|1.2.840.332511.1.1 3.104.2.7.2.727879_[id number] [facility] 2022-11-26 11:29:00 5uG8sTtmhES+BT64uliM SN6YTD2omn 3u9SXbjUEBDsU2QWaznGAeA1Wtvfbt RBDw3985-66-21P90:29:00Formatt ing of this note might be different from the original.Please review and refill if appropriate. 48968-1Tjxlufbgz encounter EstkAU3113-30-96A02:31:48Telep shelbi encounter NoteTXT1.2.840.687214.1.13.104 .2.7.2.836638|[id number] lable for patient nvla10549-8EmpaJYBHHZZLYX[address]on[address] 085676WZUAQBGDNMSIOKYMWXJHGF01 16-12-03T11:31:481.2.840.99082 0.1.72.3.15|1.2.840.594498.1.1 3.104.2.7.2.727879_[id number] [facility] 2022-11-26 11:11:12 jsW+XAst3tVeY9XpHQnX redLPGRVfB H2qlU5OELnr33Kyygm6EsIj1hXzGBk imGv6415-40-62G09:11:12Formatt ing of this note might be different from the original.Pt says she need refill on lasix and [facility] went to pharm yesterday they informed her no refillCVS/FREEPORTElectronical ly signed by Clare Martin at 11/26/2022 11:24 AM DQX39190-4Piyjpiawn encounter LpycHA8933-13-92R33:24:08Telep shelbi encounter NoteTXT1.2.840.879307.1.13.104 .2.7.2.518617|0796861682MVXmsq lable for patient sylj59440-0LdylUT697600880Uecg a Rodriguez[address] StreetTX[address] [id number] 16-12-03T11:24:[id number] 0.1.72.3.15|1.2.840.827176.1.1 [id number] Clare Martin [facility]
[2023-08-16] MEDS ORDERED: NA CHLORIDE 0.9% 100 ML ONE (13:31)
[2023-08-16] MEDS ORDERED: LEVETIRACETAM 500 MG/5 ML VIAL IV ONE (13:31)
--- NOTE | 2023-08-16 14:01 | RAD REPORT ---
EXAM DESCRIPTION: CT - Head Brain Wo Cont - 08/16/2023 1:40 pm CLINICAL HISTORY: Headache COMPARISON: 2014 TECHNIQUE: Computed axial tomography of the head was obtained. IV contrast was not requested. All CT scans are performed using dose optimization technique as appropriate and may include automated exposure control or mA/KV adjustment according to patient size. FINDINGS: An intracranial bleed is not seen The ventricles are normal in caliber No significant hypodense areas within the brain visualized No extra-axial fluid collection is noted. Fluid within the sinuses/ mastoids is not seen IMPRESSION: No acute intracranial abnormality is seen If patient's symptoms persist MRI of the brain would be recommended
--- NOTE | 2023-08-16 14:10 | RAD REPORT ---
EXAM DESCRIPTION: RAD - Foot Left 3 View - 08/16/2023 1:58 pm CLINICAL HISTORY: Left Foot pain FINDINGS: No fracture or dislocation is seen. Large calcaneal spurs
[2023-08-16 14:18] LABS: Absolute Basophils 0.1 K/uL (0-0.5); Absolute Eosinophils 0.1 K/uL (0-0.5); Absolute Monocytes 0.7 K/uL (0.1-1.3); Absolute Neutrophil 9.5 K/uL (1.8-8.0); Basophils % 0.8 % (0-1.3); Eosinophils % 0.6 % (0-4.4); Hematocrit 44.1 % (36.0-45.0); Hemoglobin 14.9 g/dL (12.0-15.0); MCH 31.1 pg (27.0-35.0); MCHC 33.7 g/dL (32.0-36.0); MCV 92.2 fL (80-100); MPV 8.5 fL (7.6-11.3); Monocytes % 5.6 % (3.3-12.3); Platelets 323 thou/uL (152-406); RBC Red Blood Cell Count 4.78 M/uL (3.86-4.86); Red Cell Distribution Width 13.7 % (12.1-15.2)
[2023-08-16 14:27] LABS: Albumin 3.8 g/dL (3.4-5.0); Albumin/Globulin Ratio 0.9 (1.1-1.8); Anion Gap 8.7 mEq/L (5.0-15.0); Bilirubin Total 0.3 mg/dL (0.2-1.0); Globulin 4.2 g/dL (2.3-3.5); Potassium 3.7 mEq/L (3.5-5.1)
[2023-08-16 14:44] LABS: Specific Gravity 1.024 (1.005-1.030); Sqamous Epithelial <5 /HPF (None Seen); Urine Bacteria None Seen /HPF (<20); Urine Bilirubin NEGATIVE (Negative); Urine Blood Negative (Negative); Urine Clarity Turbid (Clear); Urine Color Yellow (Yellow); Urine Culture Reflex Order NOT NEEDED; Urine Glucose NEGATIVE (Negative); Urine Ketones TRACE (Negative); Urine Microscopic Reflex YN ORDER UMIC; Urine Mucus Slight /HPF (None Seen); Urine Nitrite NEGATIVE (Negative); Urine Protein TRACE (Negative); Urine RBC <5 /HPF (None Seen); Urine Urobilinogen Normal (Normal); Urine WBC <5 /HPF (<5)
--- NOTE | 2023-08-16 15:03 | ER ---
Nurse's Notes [facility] Name: Kirti Desai Age: 63 yrs Sex: Female : 1960 Arrival Date: 08/16/2023 Time: 13:08 Bed 19 Private MD: Sofiya Palafox Diagnosis: Epileptic seizures related to external causes, not intractable;Sprain of foot Presentation: 08/15 13:18 Chief complaint: Patient states: she had an unwitnessed "grand-mal" seizure at 0830 ap3 this morning, and injured her left foot. patient states she remembers waking up on the floor with her leg in the air and the left side of her head hurting. Coronavirus screen: At this time, the client does not indicate any symptoms associated with coronavirus-19. Ebola Screen: No symptoms or risks identified at this time. Initial Sepsis Screen: Does the patient meet any 2 criteria? No. Patient's initial sepsis screen is negative. Does the patient have a suspected source of infection? No. Patient's initial sepsis screen is negative. Risk Assessment: Do you want to hurt yourself or someone else? Patient reports no desire to harm self or others. Onset of symptoms was August 16, 2023 at 08:30. 13:18 Method Of Arrival: Wheelchair ap3 13:18 Acuity: SAMANTHA 3 ap3 Triage Assessment: 13:25 General: Appears in no apparent distress. Behavior is calm, cooperative, appropriate ap3 for age. Pain: Complains of pain in scalp and left foot Pain began suddenly. Neuro: Level of Consciousness is awake, alert, obeys commands, Oriented to person, place, time, situation. Cardiovascular: Patient's skin is warm and dry. Respiratory: Airway is patent Respiratory effort is even, unlabored, Respiratory pattern is regular, symmetrical. Historical: - Allergies: 13:21 Carbamazepine; ap3 13:21 erythromycin lactobionate; ap3 13:21 Haloperidol; ap3 13:21 haloperidol lactate; ap3 13:21 Phenobarbital; ap3 13:21 tapentadol; ap3 13:21 topiramate; ap3 - Home Meds: 13:21 Lasix 40 mg Oral tab 1 tab once daily [Active]; hydrocodone-acetaminophen 7.5-325 mg ap3 oral tablet [Active]; Trileptal Oral [Active]; Crestor 20 mg Oral tab 1 tab once daily [Active]; losartan oral [Active]; - PMHx: 13:21 Anxiety; Bipolar disorder; Cellulitis; Chronic pain; CVA; April- but undiagnosed. ap3 (); DVT L leg-from hip down to toe; epilepsy; - Immunization history:: Adult Immunizations up to date. - Infectious Disease History:: Denies. - Social history:: Smoking status: unknown. Screenin:24 [facility] ED Fall Risk Assessment (Adult) History of falling in the last 3 months, mb9 including since admission Yes- single mechanical fall (1 pt) Confusion or Disorientation No (0 pts) Intoxicated or Sedated No (0 pts) Impaired Gait Yes (1 pt) Mobility Assist Device Used Yes (1 pt) Altered Elimination No (0 pt) Score/Fall Risk Level 3 or more points = High Risk Oriented to surroundings, Maintained a safe environment, Educated pt \\T\\ family on fall prevention, incl call for assistance when getting out of bed, Assessed \\T\\ reinforced patient's understanding of fall precautions. Abuse screen: Denies threats or abuse. Nutritional screening: No deficits noted. Tuberculosis screening: No symptoms or risk factors identified. Assessment: 13:41 General: Appears in no apparent distress. Behavior is calm, cooperative. Pain: mb9 Complains of pain in left foot Pain does not radiate. Pain currently is 8 out of 10 on a pain scale. Quality of pain is described as throbbing, Pain began suddenly. Neuro: Flaherty Agitation-Sedation Scale (RASS): 0 - Alert and Calm Level of Consciousness is awake, alert, obeys commands, Oriented to person, place, time, situation, Appropriate for age. Cardiovascular: Patient's skin is warm and dry. Respiratory: Airway is patent Respiratory effort is even, unlabored, Respiratory pattern is regular, symmetrical. GI: No signs and/or symptoms were reported involving the gastrointestinal system. : No signs and/or symptoms were reported regarding the genitourinary system. EENT: No signs and/or symptoms were reported regarding the EENT system. Derm: Skin is pink, warm \\T\\ dry. Musculoskeletal: Range of motion: limited in left ankle. 15:18 Reassessment: Patient appears in no apparent distress at this time. No changes from mb9 previously documented assessment. Patient and/or family updated on plan of care and expected duration. Pain level reassessed. Patient is alert, oriented x 3, equal unlabored respirations, skin warm/dry/pink. Vital Signs: 13:18 BP 138 / 67; Pulse 77; Resp 18; Temp 97.1; Pulse Ox 98% ; ap3 14:33 BP 126 / 81; Pulse 77; Resp 18; Pulse Ox 100% on R/A; mb9 15:18 BP 130 / 86; Pulse 68; Resp 18; Pulse Ox 100% on R/A; mb9 [place] Coma Score: 13:25 Eye Response: spontaneous(4). Motor Response: obeys commands(6). Verbal Response: ap3 oriented(5). Total: 15. ED Course: 13:14 Patient arrived in ED. mr 13:15 Sofiya Palafox is Private Physician. mr 13:15 Serenity Santoyo FNP-C [facility]. kb 13:15 Daren Hogan MD is Attending Physician. kb 13:21 Triage completed. ap3 13:23 Adali Feliz RN is Primary Nurse. mb9 13:23 Arm band placed on. mb9 13:23 Placed in gown. Bed in low position. Call light in reach. Side rails up X 1. Client mb9 placed on continuous cardiac and pulse oximetry monitoring. NIBP monitoring applied. pvc monitor on. 13:24 Seizure precautions initiated. mb9 13:29 Provided Education on: press call light if needing anything. mb9 13:[address] via stretcher. mb9 13:41 CT Head Brain wo Cont In Process Unspecified. EDMS 13:45 No provider procedures requiring assistance completed. mb9 13:57 CMP Sent. mb9 13:57 CBC with Diff Sent. mb9 13:57 Initial lab(s) drawn, by hi, sent to lab. Inserted saline lock: 22 gauge in right bc6 antecubital area, using aseptic technique. Blood collected. 13:59 Patient requests food. Patient requests liquids. Patient requests pain medication. mb9 14:00 Foot Left 3 View XRAY In Process Unspecified. EDMS 15:03 Sofiya Palafox is Referral Physician. kb 15:03 Referral Physician role handed off by Sofiya Palafox kb 15:18 IV discontinued, intact, bleeding controlled, No redness/swelling at site. Pressure mb9 dressing applied. Administered Medications: 13:57 Drug: Keppra IV 1000 mg IV at calculated rate once Route: IV; Rate: calculated rate; mb9 Site: right antecubital; 14:38 Follow up: Response: No adverse reaction; IV Status: Completed infusion mb9 15:10 Drug: [place] PO 10 mg-325 mg 1 tabs PO once Route: PO; mb9 15:17 Follow up: Response: No adverse reaction mb9 15:17 Drug: Ketorolac IVP 15 mg IVP once Route: IVP; Site: right antecubital; mb9 15:17 Follow up: Response: No adverse reaction mb9 Medication: 13:24 VIS not applicable for this client. mb9 Outcome: 15:03 Discharge ordered by MD. hess 15:18 Discharged to home via wheelchair, with family, mb9 15:18 Condition: stable 15:18 Discharge instructions given to patient, Instructed on discharge instructions, follow up and referral plans. Demonstrated understanding of instructions, follow-up care, 15:18 Patient left the ED. mb9 Signatures: Dispatcher [employer] EDSerenity Foy, ORGANIC GARDENING TEACHER-C ORGANIC GARDENING TEACHER-Ckb Adali Jones, Reg Reg mr Margarita Hills, RN RN ap3 Adali Feliz RN RN mb9 Neris Sawyer6
--- NOTE | 2023-08-16 15:04 | EDPHYS ---
Physician Documentation [facility] Name: Kirti Desai Age: 63 yrs Sex: Female : 1960 Arrival Date: 08/16/2023 Time: 13:08 Bed 19 Private MD: Sofiya Palafox ED Physician Daren Hogan HPI: 08/15 13:40 This 63 yrs old Female presents to ER via Wheelchair with complaints of Probable kb Seizure, Fall Injury, Foot Injury. 13:40 Pt is a 63 year old female who presents with pain to left foot and left side of head kb after a seizure at 0830 this morning. States she has a history of seizures and take trileptal 600mg daily. States her last seizure was 3 years ago, her neurologist took her off of lamictal 2 years ago and left her on trileptal 600mg BID. States she does not take the night time dose that she is supposed to take and normally doesn't have any problems. Seizure was unwittnessed. Pt states she woke up on the floor and doesn't remember the incident. . Historical: - Allergies: 13:21 Carbamazepine; ap3 13:21 erythromycin lactobionate; ap3 13:21 Haloperidol; ap3 13:21 haloperidol lactate; ap3 13:21 Phenobarbital; ap3 13:21 tapentadol; ap3 13:21 topiramate; ap3 - Home Meds: 13:21 Lasix 40 mg Oral tab 1 tab once daily [Active]; hydrocodone-acetaminophen 7.5-325 mg ap3 oral tablet [Active]; Trileptal Oral [Active]; Crestor 20 mg Oral tab 1 tab once daily [Active]; losartan oral [Active]; - PMHx: 13:21 Anxiety; Bipolar disorder; Cellulitis; Chronic pain; CVA; April- but undiagnosed. ap3 (); DVT L leg-from hip down to toe; epilepsy; - Immunization history:: Adult Immunizations up to date. - Infectious Disease History:: Denies. - Social history:: Smoking status: unknown. ROS: 13:42 Constitutional: As per HPI kb Exam: 13:42 Constitutional: This is a well developed, well nourished patient who is awake, alert, kb and in no acute distress. Eyes: Pupils equal round and reactive to light, extra-ocular motions intact. Lids and lashes normal. Conjunctiva and sclera are non-icteric and not injected. Cornea within normal limits. Periorbital areas with no swelling, redness, or edema. ENT: Moist Mucous membranes Cardiovascular: Regular rate Respiratory: Respirations even and unlabored. No increased work of breathing. Talking in full sentences Abdomen/GI: Soft, non-tender. No distention Skin: Warm, dry with normal turgor. Normal color. Neuro: Awake and alert, GCS 15, oriented to person, place, time, and situation. Moves all extremities. Normal gait. 13:42 Head/face: Noted is no obvious of injury or deformity except tenderness, that is moderate, of the left side of head, 13:42 Musculoskeletal/extremity: Extremities: grossly normal except: noted in the left foot: pain, swelling, tenderness, ROM: limited active range of motion due to pain, Circulation is intact in all extremities. Sensation intact. Weight bearing: is unable to bear weight, Vital Signs: 13:18 BP 138 / 67; Pulse 77; Resp 18; Temp 97.1; Pulse Ox 98% ; ap3 14:33 BP 126 / 81; Pulse 77; Resp 18; Pulse Ox 100% on R/A; mb9 15:18 BP 130 / 86; Pulse 68; Resp 18; Pulse Ox 100% on R/A; mb9 [place] Coma Score: 13:25 Eye Response: spontaneous(4). Motor Response: obeys commands(6). Verbal Response: ap3 oriented(5). Total: 15. MDM: 13:15 Patient medically screened. kb 13:43 Differential diagnosis: seizure, strain, ICH, sprain, fracture, contusion. Data kb reviewed: vital signs, nurses notes. 15:02 Counseling: I had a detailed discussion with the patient and/or guardian regarding the kb historical points, exam findings, and any diagnostic results supporting the discharge/admit diagnosis, lab results, radiology results, the need for outpatient follow up, a family practitioner, a neurologist, to return to the emergency department if symptoms worsen or persist or if there are any questions or concerns that arise at home. 08/15 13:28 Order name: CBC with Diff; Complete Time: 14:46 kb 08/15 13:28 Order name: CMP; Complete Time: 14:30 kb 08/15 13:28 Order name: Urinalysis w/ reflexes; Complete Time: 14:46 kb 08/15 13:28 Order name: CT Head Brain wo Cont; Complete Time: 14:08 kb 08/15 13:28 Order name: Foot Left 3 View XRAY; Complete Time: 14:16 kb 08/15 15:03 Order name: Roel Wrap; Complete Time: 15:04 kb 08/15 15:03 Order name: Ice; Complete Time: 15:04 kb Administered Medications: 13:57 Drug: Keppra IV 1000 mg IV at calculated rate once Route: IV; Rate: calculated rate; mb9 Site: right antecubital; 14:38 Follow up: Response: No adverse reaction; IV Status: Completed infusion mb9 15:10 Drug: [place] PO 10 mg-325 mg 1 tabs PO once Route: PO; mb9 15:17 Follow up: Response: No adverse reaction mb9 15:17 Drug: Ketorolac IVP 15 mg IVP once Route: IVP; Site: right antecubital; mb9 15:17 Follow up: Response: No adverse reaction mb9 Disposition: 16:18 Co-signature as Attending Physician, Daren Hogan MD I reviewed the patient's care rn provided by the Advanced Practice Provider and agree with the diagnosis and treatment plan. Disposition Summary: 08/16/23 15:03 Discharge Ordered Notes: Location: Home kb Condition: Stable kb Diagnosis - Epileptic seizures related to external causes, not intractable kb - Sprain of foot kb Followup: kb - With: Emergency Department - When: As needed - Reason: Worsening of condition Followup: kb - With: Private Physician - When: 2 - 3 days - Reason: Recheck today's complaints, Continuance of care, Re-evaluation by your physician Discharge Instructions: - Discharge Summary Sheet kb - Foot Sprain kb - Seizure, Adult, [id number] kb Forms: - Medication Reconciliation Form kb - Antibiotic Education kb - Prescription Opioid Use kb - Patient Portal Instructions kb - Leadership Thank You Letter kb Signatures: Dispatcher [employer] Serenity Arshad, FORECLOSURE SPECIALIST-C FORECLOSURE SPECIALIST-Daren Rowley MD MD rn Prokisch, Amanda RN RN ap3 Adali Feliz RN RN mb9 Corrections: (The following items were deleted from the chart) 13:29 13:29 Head Brain Wo Cont+CT.RAD.BRZ ordered. EDMS EDMS 13:29 13:29 Foot Left 3 View+RAD.RAD.BRZ ordered. EDMS EDMS
[2023-08-16] MEDS ORDERED: KETOROLAC 30 MG/ML INJ ONE (15:10)
[2023-08-16] MEDS ORDERED: HYDROCODONE/APAP 10/325 TAB ONE (15:10)
[2023-08-16 15:42] VITALS: BP 130/86; TEMP 97.1; O2SAT 100
== END 2023-08-16 15:18 | disposition home or self-care (01) ==
LOC: ER 13:08
DX: G40.509 Epileptic seizures related to external causes, not intractable, without status epilepticus (principal); S93.602A Unspecified sprain of left foot, initial encounter; Z88.3 Allergy status to other anti-infective agents; Z88.5 Allergy status to narcotic agent; Z88.8 Allergy status to other drugs, medicaments and biological substances
CPT/HCPCS: 85025; 81001; 36415; 80053; 70450; 73630; J1953

== ENCOUNTER 2024-09-18 16:52 | Emergency (ER) | payer MEDICAID ==
--- OUTSIDE RECORDS SUMMARY | 2024-09-18 16:58 | XMS REPORT | Continuity of Care Document ---
Author Name Unknown Address [address] [facility] [address] [place] [address] [facility] Address [address] [place] [address] Care Team Providers Care Category Planner Name Role Phone Sandeep Josiah Primary Care Physician [phone] SOFIYA LOPEZ Attending Clinician Unavailable SOFIYA LOPEZ Attending Clinician Unavailable Lab, Eeg Attending Clinician Unavailable Magalis QUICK, Jd Attending Clinician UnavailSofiya Gold MD Attending Clinician [phone] Maria Luz Montiel MD Attending Clinician [phone] MARIA LUZ MONTIEL Attending Clinician Unavailable Doctor Unassigned, [place] Attending Clinician U juan luis Bear MD, Ervin Attending Clinician Unavailab lee Conway MD, Austin Melton Attending Clinician [phone] Epi Crouch MD Attending Clinician Unava ilable Lea Bertrand LVN Attending Clinician Unavailabl e Lab, Ang - Db Attending Clinician Unavailable Unknown, Attending Attending Clinician Unavailab le UNKNOWN, ATTENDING Attending Clinician Unavailab NICHELLE Corcoran Attending Clinician Unavailable Nichelle Flores Attending Clinician [phone] OSMAN GORMAN Attending Clinician UnavailAlbert Gar MD Attending Clinician [phone] Anita Mckeon PA-C Attending Clinician [phone] ANITA MCKEON Attending Clinician Unavailable Unknown, Attending Attending Clinician Unavailab le Lab, Ang - Db Attending Clinician Unavailable Doctor Unassigned, [place] Attending Clinician U navailable ALBERT GORDON Attending Clinician Unavail able ALBERT GORDON Attending Clinician Unavail able Oskar Byers MD Attending Clinician [phone] Jolene Raymond DO Attending Clinician [phone] JOLENE RAYMOND Attending Clinician Unavailable JOLENE RAYMOND Attending Clinician Unavailable CELINE BRAMBILA Attending Clinician Unavaila ble Only, Adc Test Attending Clinician Unavailable Pc, Adc Echo Room 1 - Attending Clinician Unavamike samuels Radiology Attending Clinician Unavailable RADIOLOGY Attending Clinician Unavailable OSKAR BYERS Attending Clinician Unavailable Pc, Adc Vascular Room 1 - Attending Clinician Un available BRITNEY BAIG Attending Clinician Unavaila ble MARIA LUZ MONTIEL Admitting Clinician Unavailable Maria Luz Montiel MD Admitting Clinician [phone] SOFIYA LOPEZ Admitting Clinician Unavailable Payers Payer Name Policy Type Policy Number Effective Date Expirati on Date Source [facility] [id number] 2014 00:00:00 Problems Condition Name Condition Details Condition Category Status Onset Date Resolution Date Last Treatment Date Treating Clinician Comments Source Ventral hernia without obstructio n or gangrene Ventral hernia without obstructio n or gangrene Disease Active 05-17 00:00: 00 [facility] Decreased range of motion of ankle Decreased range of motion of ankle Disease Active 05-29 00:00: 00 [facility] Decreased muscle strength Decreased muscle strength Disease Active 05-29 00:00: 00 [facility] Difficulty walking Difficulty walking Disease Active 05-29 00:00: 00 Overview: Formattin g of this note might be different from the original. 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 [facility] Ankle pain Ankle pain Disease Active 05-23 00:00: 00 [facility] Chronic pain disorder Chronic pain disorder Disease Active 11-20 00:00: 00 [facility] Adjustment disorder Adjustment disorder Disease Active 11-20 00:00: 00 [facility] DVT, lower extremity DVT, lower extremity Disease Active 11-20 00:00: 00 [facility] Long-term current use of opiate analgesic Long-term current use of opiate analgesic Disease Active 11-20 00:00: 00 [facility] Pseudoseiz ure Pseudoseiz ure Disease Active 2011-04 00:00: 00 [facility] Bipolar 1 disorder Bipolar 1 disorder Disease Active 2011-04 00:00: 00 [facility] Seizures, post-traum atic Seizures, post-traum atic Disease Active 2011-04 00:00: 00 [facility] Pseudoseiz ure Pseudoseiz ure Disease Active 2011-04 00:00: 00 [facility] Complex partial seizure Complex partial seizure Disease Active 2011-04 00:00: 00 [facility] Pain in joint, ankle and foot Pain in joint, ankle and foot Disease Active 2011-04 00:00: 00 [facility] Cervicalgi a Cervicalgi a Disease Active 12-12 00:00: 00 [facility] Leg pain Leg pain Disease Active 12-12 00:00: 00 [facility] Gait disturbanc e Gait disturbanc e Disease Active 12-12 00:00: 00 [facility] Medication refill Medication refill Disease Active 11-03 00:00: 00 [facility] Obesity (BMI 30-39.9) Obesity (BMI 30-39.9) Disease Resolve d 2016-04 017 00:00: 00 2017-02-24 00:00:00 2017-02-24 15:19:32 [facility] Allergies, Adverse Reactions, Alerts Allergy Name Allergy Type Status Severity Reaction(s) Onset Date Inactive Date Treating Clinician Comments Source TIZANIDI NE HCL DRUG INGREDI Active Other-Cmnt 09-20 00:00: 00 [facility] Tizanidi ne Hcl Propensi ty to adverse reaction s Active Other - See comments 09-20 00:00: 00 Blackout [facility] Pregabal in Propensi ty to adverse reaction s to drug Active Rash 09-14 00:00: 00 [facility] PREGABAL IN DRUG INGREDI Active High Rash 09-14 00:00: 00 [facility] Erythrom ycin Propensi ty to adverse reaction s Active Rash 07-04 00:00: 00 [facility] Haloperi dol Lactate Propensi ty to adverse reaction s Active Nausea and/or Vomiting 07-04 00:00: 00 [facility] Phenobar bital Propensi ty to adverse reaction s Active Other - See comments 07-04 00:00: 00 Couldn't walk or talk, doubled in blood system [facility] Tapentad ol Propensi ty to adverse reaction s Active Rash 07-04 00:00: 00 [facility] ERYTHROM YCIN DRUG Active Rash 07-04 00:00: 00 [facility] HALOPERI DOL LACTATE DRUG INGREDI Active N/V 07-04 00:00: 00 [facility] PHENOBAR BITAL DRUG INGREDI Active Other-Cmnt 07-04 00:00: 00 [facility] TAPENTAD OL DRUG INGREDI Active Rash 07-04 00:00: 00 [facility] CARBAMAZ EPINE DRUG INGREDI Active Other-Cmnt 07-04 00:00: 00 [facility] TOPIRAMA TE DRUG INGREDI Active Other-Cmnt 07-04 00:00: 00 [facility] Carbamaz epine Propensi ty to adverse reaction s Active Other - See comments 07-04 00:00: 00 Went toxic [facility] Topirama te Propensi ty to adverse reaction s Active Other - See comments 07-04 00:00: 00 Vision changes [facility] Social History Social Habit Start Date Stop Date Quantity Comments Source History of tobacco use Cigarette Smoker [facility] ASSERTION Not [facility] Gender [facility] Sexual orientation [facility] History of Social function 2024-06-18 00:00:00 2024-06-18 00:00:00 [facility] Cigarettes smoked current (pack per day) - Reported 2024-05-31 00:00:00 2024-05-31 00:00:00 [facility] Tobacco Comment 2024-05-31 00:00:00 2024-05-31 00:00:00 Quit 05/23/24 [facility] Cigarette pack-years 2024-05-31 00:00:00 2024-05-31 00:00:00 [facility] Alcohol intake 2023-05-06 00:00:00 2023-05-06 00:00:00 Current non-drinker of alcohol (finding) [facility] Exposure to SARS-CoV-2 (event) 2022-07-23 00:00:00 2022-08-02 09:35:00 Not sure [facility] Alcoholic beverage intake 2015-09-21 00:00:00 2015-09-21 00:00:00 Current non-drinker of alcohol (finding) [facility] Tobacco use and exposure 2015-09-21 00:00:00 2015-09-21 00:00:00 Smokeless tobacco non-user [facility] Sex assigned at 1960 00:00:00 1960 00:00:00 [facility] Smoking Status Start Date Stop Date Source Ex-smoker 2024-05-31 00:00:00 2024-05-31 00:00:00 [facility] Occasional tobacco smoker 2015-09-21 00:00:00 [facility] Smokes tobacco daily 2011-07-05 00:00:00 [facility] Medications Ordered Medication Name Filled Medication Name Start Date Stop Date Current Medication? Ordering Clinician Indication Dosage Frequency Signature (SIG) Comments Components Source TIZANIDINE 4 mg tablet 4-10 00:00: 00 Yes [id number] 4mg TAKE 1 TABLET BY MOUTH EVERY 6 HOURS NEEDED FOR PAIN (SCALE 4-6). [facility] HYDROcodone -acetaminop hen (NORCO 5) tablet 1 tablet 06-05 22:00: 00 06-05 22:19 :00 No 1{tbl} 1 tablet, Oral, ONCE, 1 dose, On Tue06/05/24 at 1600, Routine, PACU [facility] FENTanyl (PF) (SUBLIMAZE) injection 25 mcg 06-05 21:48: 05 06-06 00:59 :34 No 25ug 25 mcg, Slow IV Push, Q5MIN PRN, 4 doses, Starting on Tue06/05/24 at 1548, Until Tue06/05/24 at 1859, Routine, Pain Scale 4-6, PACU [facility] bupivacaine (preserv free) (SENSORCAIN E MPF) 0.25 % (2.5 mg/mL) 30 mL, BUPivacaine liposome (PF) (EXPAREL (PF)) 1.3 % (13.3 mg/mL) 266 mg, NaCl 0.9% (NS) 50 mL 06-05 20:18: 00 06-05 21:59 :13 No PRN, Starting on Tue06/05/24 at 1418, Intra-op [facility] sodium chloride 0.9 % irrigation solution 06-05 20:04: 00 06-05 21:59 :13 No PRN, Starting on Tue06/05/24 at 1404, Until Tue06/05/24 at 1559, Intra-op [facility] acetaminoph en (TYLENOL EXTRA STRENGTH) 500 mg tablet 06-05 00:00: 00 Yes [id number] 500mg Take 1 tablet by mouth every 6 (six) hours as needed for Pain. [facility] iopamidol (ISOVUE 370-500 mL) injection 85 mL 1-17 00:00: 00 05-10 23:06 :00 No [id number] 85mL 85 mL, Intravenou s, ONCE, 1 dose, On Bernice 05/10/24 at 1800, Routine [facility] atorvastati n 40 mg tablet 04-30 00:00: 00 Yes [id number] 40mg Take 1 tablet by mouth at bedtime. [facility] losartan 50 mg tablet 04-30 00:00: 00 Yes [id number] 50mg Take 1 tablet by mouth in the morning. [facility] furosemide 40 mg tablet 04-30 00:00: 00 Yes [id number] 40mg Take 1 tablet by mouth in the morning. [facility] TIZANIDINE 4 mg tablet 04-28 00:00: 00 08-02 00:00 :00 No [id number] 4mg TAKE 1 TABLET BY MOUTH EVERY 6 HOURS NEEDED FOR PAIN (SCALE 4-6). [facility] lidocaine 5 % (700 mg/patch) patch 2023-04 2 00:00: 00 Yes TAKE 1 EACH ONCE A DAY FOR 30 DAY(S) 12 HOURS ON AND 12 HOURS OFF [facility] TIZANIDINE 4 mg tablet 30 00:00: 00 04-28 00:00 :00 No [id number] 4mg TAKE 1 TABLET BY MOUTH EVERY 6 HOURS NEEDED FOR PAIN (SCALE 4-6). [facility] losartan 50 mg tablet 10-12 00:00: 00 04-30 00:00 :00 No [id number] 50mg Take 1 tablet by mouth in the morning. [facility] rosuvastati n 20 mg tablet 10-12 00:00: 00 04-30 00:00 :00 No [id number] 20mg Take 1 tablet by mouth at bedtime. [facility] furosemide 40 mg tablet 6-20 00:00: 00 04-30 00:00 :00 No [id number] 40mg Take 1 tablet by mouth in the morning. [facility] OXcarbazepi ne (TRILEPTAL) 600 mg tablet 09-04 00:00: 00 Yes [id number] 600mg Take 1 tablet by mouth in the morning and 1 tablet in the evening. [facility] tiZANidine 4 mg tablet 2022-04- 00:00: 00 11-21 00:00 :00 No [id number] 4mg Take 1 tablet by mouth every 6 (six) hours as needed for Pain (scale 4-6). [facility] KETOROLAC TROMETHAMIN E (TORADOL ORAL) 2022-04 08:49: 54 02-08 00:00 :00 No Take by mouth. [facility] Diclofenac Sodium 1 % gel 2022-04 00:00: 00 04-30 00:00 :00 No Apply to affected area(s) 2 (two) times daily. [facility] ubrogepant (UBRELVY) 100 mg Tab 2022-04 00:00: 00 02-08 00:00 :00 No [id number] 9105 TAKE 1 TABLET NEEDED FOR HEADACHE. IF SYMPTOMS PERSIST MAY REPEAT DOSE AFTER 2 HR. MAX 2 TABS IN 24HR...PA DENIED [facility] OXcarbazepi ne (TRILEPTAL) 600 mg tablet 2022-04 00:00: 00 09-04 00:00 :00 No [id number] 600mg Take 1 tablet by mouth in the morning and 1 tablet in the evening. [facility] propranoloL 20 mg tablet 2022-04 00:00: 00 04-12 00:00 :00 No [id number] 9105 20mg Take 1 tablet by mouth in the morning and 1 tablet in the evening. [facility] ubrogepant 100 mg Tab 2022-04 00:00: 00 02-02 00:00 :00 No [id number] 9105 100mg Take 1 tablet by mouth as needed for Other (Headache) for up to 64 doses. If symptoms persist or return, may repeat dose after 2 hours. Maximum: 200 mg per 24 hours [facility] diclofenac sodium (PENNSAID TOPICAL) 01-06 11:01: 41 Yes Apply to area(s). [facility] losartan 50 mg tablet 01-06 00:00: 00 10-12 00:00 :00 No [id number] 50mg Take 1 tablet by mouth in the morning. [facility] furosemide 40 mg tablet 11-26 00:00: 00 10-12 00:00 :00 No [id number] 40mg Take 1 tablet by mouth in the morning. [facility] rosuvastati n 20 mg tablet 11-26 00:00: 00 10-12 00:00 :00 No [id number] 20mg Take 1 tablet by mouth at bedtime. [facility] rosuvastati n (CRESTOR) 20 mg tablet 11-25 09:31: 15 11-25 00:00 :00 No 20mg Take 1 tablet by mouth at bedtime. [facility] lactulose 10 gram/15 mL solution 11-25 09:18: 15 11-25 00:00 :00 No 30mL Take 30 mL by mouth 2 (two) times daily as needed for Constipati on. [facility] hydrocortis one 1 % cream 11-25 09:18: 09 11-25 00:00 :00 No Apply to affected area(s) every 12 (twelve) hours. [facility] dimethicone (BLISTEX TOPICAL) 11-25 09:17: 56 11-25 00:00 :00 No Apply to area(s) daily. [facility] diclofenac sodium (PENNSAID TOPICAL) 11-25 08:34: 45 Yes Apply to area(s). [facility] Blood Pressure Monitor (BLOOD PRESSURE KIT) Kit 11-25 00:00: 00 Yes [id number] Use as directed twice daily to check blood pressure. [facility] tiZANidine 4 mg tablet 11-25 00:00: 00 04-12 00:00 :00 No [id number] 4mg Take 1 tablet by mouth every 6 (six) hours as needed for Pain (scale 4-6). [facility] terbinafine HCL 250 mg tablet 11-25 00:00: 00 04-12 00:00 :00 No [id number] 250mg Take 1 tablet by mouth in the morning. [facility] rosuvastati n 20 mg tablet 11-25 00:00: 00 11-26 00:00 :00 No [id number] 20mg Take 1 tablet by mouth at bedtime. [facility] OXcarbazepi ne (TRILEPTAL) 600 mg tablet 08-02 00:00: 00 02-01 00:00 :00 No [id number] 600mg Take 1 tablet by mouth in the morning and 1 tablet in the evening. [facility] Lysine 500 mg Tab 2020-04 10:04: 52 03-13 00:00 :00 No Take by mouth daily. [facility] acetaminoph en 500 mg tablet 2020-04 10:02: 29 03-13 00:00 :00 No 500mg Take 500 mg by mouth every 6 (six) hours as needed for Pain. [facility] Butalbital- Acetaminoph en-Caff 50-300-40 mg per capsule 2020-04 0-05 00:00: 00 08-02 00:00 :00 No [facility] diclofenac sodium (PENNSAID TOPICAL) 7 15:21: 24 Yes Apply to area(s). [facility] hydrocortis one 1 % cream 10-15 15:44: 09 Yes Apply to affected area(s) every 12 (twelve) hours. [facility] lactulose 10 gram/15 mL solution 10-15 15:44: 09 Yes 30mL Take 30 mL by mouth 2 (two) times daily as needed for Constipati on. [facility] dimethicone (BLISTEX TOPICAL) 10-15 15:44: 09 Yes Apply to area(s) daily. [facility] rosu[facility] (CRESTOR) 20 mg tablet 10-15 15:40: 02 Yes 20mg Take 20 mg by mouth at bedtime. [facility] morpHINE I.R. (MSIR) 30 mg tablet 2016-04 10:01: 56 02-08 00:00 :00 No 30mg Take 30 mg by mouth every 4 (four) hours as needed for Pain. [facility] triamcinolo ne acetonide 0.1 % cream 12-15 00:00: 00 11-25 00:00 :00 No 2 (two) times daily. [facility] OXcarbazepi ne (TRILEPTAL) 600 mg tablet 04-30 00:00: 00 08-02 00:00 :00 No [id number] 600mg Take 1 tablet by mouth 2 (two) times daily. [facility] lamoTRIgine 150 mg tablet 04-26 00:00: 00 03-13 00:00 :00 No [id number] 150mg Take 1 tablet by mouth 2 (two) times daily. [facility] PENNSAID 20 mg/gram /actuation( 2 %) sopm 2015-04 00:00: 00 10-15 00:00 :00 No [facility] HYDROcodone -acetaminop hen 7.5-325 mg per tablet 2015-04 00:00: 00 Yes 1{tbl} 1 tablet 3 (three) times daily as needed. [facility] meloxicam (MOBIC) 15 mg tablet 2015-04 00:00: 00 10-15 00:00 :00 No [facility] ity [facility] traMADOL (ULTRAM) 50 mg tablet 2015-04 00:00: 00 02-08 00:00 :00 [facility] furosemide (LASIX) 40 mg tablet 2015-04 00:00: 00 11-26 00:00 :00 No 40mg Take 1 tablet by mouth in the morning. [facility] KCL (KLOR-CON M10) 10 mEq tablet 2015-04 00:00: 00 03-13 00:00 :00 No [facility] tiZANidine (ZANAFLEX) 4 mg tablet 01-18 00:00: 00 02-08 00:00 :00 No [facility] clonazePAM (KLONOPIN) 2 mg tablet 09-03 00:00: 00 11-25 00:00 :00 No [id number] 2mg Take 1 Tab by mouth 2 (two) times daily. [facility] furosemide (LASIX) 20 mg tablet 2013-04 00:00: 00 10-15 00:00 :00 No [facility] CYMBALTA 60 mg capsule 2012-04 00:00: 00 11-25 00:00 :00 No TAKE ONE CAPSULE EVERY DAY [facility] pantoprazol e (PROTONIX) 40 mg EC tablet 2012-04 00:00: 00 11-25 00:00 :00 No [id number] 40mg Take 1 Tab by mouth daily. [facility] Immunizations Ordered Immunization Name Filled Immunization Name Date Status Comments Source TDAP 2023-04-12 00:00:00 Completed [facility] TD, NOS 2015-09-21 00:00:00 Completed [facility] Td 2015-09-21 00:00:00 Completed [facility] TD, NOS 2015-09-21 00:00:00 Completed [facility] TD, NOS 2015-09-21 00:00:00 Completed [facility] TD, NOS 2015-09-21 00:00:00 Completed [facility] TD, NOS 2015-09-21 00:00:00 Completed [facility] TD, NOS 2015-09-21 00:00:00 Completed [facility] TD, NOS 2015-09-21 00:00:00 Completed [facility] TD, NOS 2015-09-21 00:00:00 Completed [facility] TD, NOS 2015-09-21 00:00:00 Completed [facility] Influenza, split virus, trivalent, preservative (3+ Yrs) (Afluria) 2015-01-20 00:00:00 Completed [facility] Influenza Intradermal Vaccine 2013-01-24 00:00:00 Completed [facility] Influenza Intradermal Vaccine 2013-01-24 00:00:00 Completed [facility] Influenza Intradermal Vaccine 2013-01-24 00:00:00 Completed [facility] Influenza Intradermal Vaccine 2013-01-24 00:00:00 Completed [facility] Influenza Intradermal Vaccine 2013-01-24 00:00:00 Completed [facility] Influenza Intradermal Vaccine 2013-01-24 00:00:00 Completed [facility] Influenza Intradermal Vaccine 2013-01-24 00:00:00 Completed [facility] Influenza Intradermal Vaccine 2013-01-24 00:00:00 Completed [facility] Influenza Intradermal Vaccine 2013-01-24 00:00:00 Completed [facility] Influenza Intradermal Vaccine 2013-01-24 00:00:00 Completed [facility] Influenza Virus Vaccine 2012-03-15 00:00:00 Completed [facility] Influenza Virus Vaccine 2012-03-15 00:00:00 Completed [facility] Influenza Virus Vaccine 2012-03-15 00:00:00 Completed [facility] Influenza Virus Vaccine 2012-03-15 00:00:00 Completed [facility] Influenza Virus Vaccine 2012-03-15 00:00:00 Completed [facility] Influenza Virus Vaccine 2012-03-15 00:00:00 Completed [facility] Influenza Virus Vaccine 2012-03-15 00:00:00 Completed [facility] Influenza Virus Vaccine 2012-03-15 00:00:00 Completed [facility] Influenza Virus Vaccine 2012-03-15 00:00:00 Completed [facility] Influenza Virus Vaccine 2012-03-15 00:00:00 Completed [facility] Influenza Virus Vaccine Unknown Completed [facility] Influenza Intradermal Vaccine Unknown Completed [facility] TD, NOS Unknown Completed [facility] Influenza Virus Vaccine Unknown Completed [facility] Influenza Intradermal Vaccine Unknown Completed [facility] TD, NOS Unknown Completed [facility] Influenza Virus Vaccine Unknown Completed [facility] Influenza Intradermal Vaccine Unknown Completed [facility] TD, NOS Unknown Completed [facility] Influenza Virus Vaccine Unknown Completed [facility] Influenza Intradermal Vaccine Unknown Completed [facility] TD, NOS Unknown Completed [facility] Influenza Virus Vaccine Unknown Completed [facility] Influenza Intradermal Vaccine Unknown Completed [facility] TD, NOS Unknown Completed [facility] Influenza Virus Vaccine Unknown Completed [facility] Influenza Intradermal Vaccine Unknown Completed [facility] TD, NOS Unknown Completed [facility] Influenza Virus Vaccine Unknown Completed [facility] Influenza Intradermal Vaccine Unknown Completed [facility] TD, NOS Unknown Completed [facility] Influenza Virus Vaccine Unknown Completed [facility] Influenza Intradermal Vaccine Unknown Completed [facility] TD, NOS Unknown Completed [facility] Influenza Virus Vaccine Unknown Completed [facility] Influenza Intradermal Vaccine Unknown Completed [facility] TD, NOS Unknown Completed [facility] TDAP Unknown Completed [facility] Influenza Virus Vaccine Unknown Completed [facility] Influenza Intradermal Vaccine Unknown Completed [facility] TD, NOS Unknown Completed [facility] TDAP Unknown Completed [facility] Influenza Virus Vaccine Unknown Completed [facility] Influenza Intradermal Vaccine Unknown Completed [facility] TD, NOS Unknown Completed [facility] TDAP Unknown Completed [facility] Influenza Virus Vaccine Unknown Completed [facility] Influenza Intradermal Vaccine Unknown Completed [facility] TD, NOS Unknown Completed [facility] TDAP Unknown Completed [facility] Influenza Virus Vaccine Unknown Completed [facility] Influenza Intradermal Vaccine Unknown Completed [facility] TD, NOS Unknown Completed [facility] TDAP Unknown Completed [facility] Influenza Virus Vaccine Unknown Completed [facility] Influenza Intradermal Vaccine Unknown Completed [facility] TD, NOS Unknown Completed [facility] TDAP Unknown Completed [facility] Influenza Virus Vaccine Unknown Completed [facility] Influenza Intradermal Vaccine Unknown Completed [facility] [place] TD, NOS Unknown Completed [facility] TDAP Unknown Completed [facility] Influenza Virus Vaccine Unknown Completed [facility] Influenza Intradermal Vaccine Unknown Completed [facility] [place] TD, NOS Unknown Completed [facility] TDAP Unknown Completed [facility] Influenza Virus Vaccine Unknown Completed [facility] Influenza Intradermal Vaccine Unknown Completed [facility] TD, NOS Unknown Completed [facility] TDAP Unknown Completed [facility] Influenza Virus Vaccine Unknown Completed [facility] Influenza Intradermal Vaccine Unknown Completed [facility] TD, NOS Unknown Completed [facility] TDAP Unknown Completed [facility] Influenza Virus Vaccine Unknown Completed [facility] Influenza Intradermal Vaccine Unknown Completed [facility] TD, NOS Unknown Completed [facility] TDAP Unknown Completed [facility] Influenza Virus Vaccine Unknown Completed [facility] Influenza Intradermal Vaccine Unknown Completed [facility] TD, NOS Unknown Completed [facility] TDAP Unknown Completed [facility] Influenza Virus Vaccine Unknown Completed [facility] Influenza Intradermal Vaccine Unknown Completed [facility] TD, NOS Unknown Completed [facility] TDAP Unknown Completed [facility] Vital Signs Vital Name Observation Time Observation Value Comments S ource Systolic blood pressure 2024-06-18 16:22:00 150 mm[Hg] [facility] Diastolic blood pressure 2024-06-18 16:22:00 79 mm[Hg] [facility] Heart rate 2024-06-18 16:22:00 63 /min [facility] Oxygen saturation in Arterial blood by Pulse oximetry 2024-06-18 16:22:00 95 /min [facility] Body temperature 2024-06-18 16:17:00 36.39 Maegan [facility] Respiratory rate 2024-06-18 16:17:00 20 /min [facility] Body weight 2024-06-18 16:17:00 94.802 kg [facility] BMI 2024-06-18 16:17:00 31.78 kg/m2 [facility] Systolic blood pressure 2024-06-05 22:40:00 126 mm[Hg] [facility] Diastolic blood pressure 2024-06-05 22:40:00 94 mm[Hg] [facility] Heart rate 2024-06-05 22:40:00 85 /min [facility] Respiratory rate 2024-06-05 22:40:00 23 /min [facility] Oxygen saturation in Arterial blood by Pulse oximetry 2024-06-05 22:40:00 95 /min [facility] Body temperature 2024-06-05 21:55:00 36.72 Maegan [facility] Body height 2024-06-05 16:29:00 172.7 cm [facility] Body weight 2024-06-05 16:29:00 89.812 kg [facility] BMI 2024-06-05 16:29:00 30.11 kg/m2 [facility] Systolic blood pressure 2024-06-05 16:29:00 161 mm[Hg] [facility] Diastolic blood pressure 2024-06-05 16:29:00 93 mm[Hg] [facility] Heart rate 2024-06-05 16:29:00 72 /min Un[facility] Body temperature 2024-06-05 16:29:00 36.56 Maegan [facility] Respiratory rate 2024-06-05 16:29:00 16 /min [facility] Body height 2024-06-05 16:29:00 172.7 cm [facility] Body weight 2024-06-05 16:29:00 89.812 kg [facility] BMI 2024-06-05 16:29:00 30.11 kg/m2 [facility] Oxygen saturation in Arterial blood by Pulse oximetry 2024-06-05 16:29:00 95 /min [facility] Systolic blood pressure 2024-05-17 22:08:00 159 mm[Hg] [facility] Diastolic blood pressure 2024-05-17 22:08:00 86 mm[Hg] [facility] Heart rate 2024-05-17 22:03:00 80 /min Un[facility] Body temperature 2024-05-17 22:03:00 36.44 Maegan [facility] Respiratory rate 2024-05-17 22:03:00 22 /min [facility] Body weight 2024-05-17 22:03:00 91.627 kg [facility] BMI 2024-05-17 22:03:00 30.71 kg/m2 [facility] Oxygen saturation in Arterial blood by Pulse oximetry 2024-05-17 22:03:00 96 /min [facility] Systolic blood pressure 2024-05-10 21:15:00 162 mm[Hg] [facility] Diastolic blood pressure 2024-05-10 21:15:00 89 mm[Hg] [facility] Heart rate 2024-05-10 21:15:00 72 /min Un[facility] Body temperature 2024-05-10 21:12:00 36.44 Maegan [facility] Body height 2024-05-10 21:12:00 172.7 cm [facility] Body weight 2024-05-10 21:12:00 94.076 kg [facility] BMI 2024-05-10 21:12:00 31.54 kg/m2 [facility] Oxygen saturation in Arterial blood by Pulse oximetry 2024-05-10 21:12:00 95 /min [facility] Systolic blood pressure 2024-04-30 21:16:00 161 mm[Hg] [facility] Diastolic blood pressure 2024-04-30 21:16:00 85 mm[Hg] [facility] Heart rate 2024-04-30 20:47:00 67 /min [facility] Respiratory rate 2024-04-30 20:47:00 18 /min [facility] Body height 2024-04-30 20:47:00 172.7 cm [facility] Body weight 2024-04-30 20:47:00 91.627 kg [facility] BMI 2024-04-30 20:47:00 30.71 kg/m2 [facility] Oxygen saturation in Arterial blood by Pulse oximetry 2024-04-30 20:47:00 96 /min [facility] Systolic blood pressure 2024-02-24 15:05:00 132 mm[Hg] [facility] Diastolic blood pressure 2024-02-24 15:05:00 80 mm[Hg] [facility] Heart rate 2024-02-24 15:05:00 73 /min [facility] Body height 2024-02-24 15:05:00 170.2 cm [facility] Body weight 2024-02-24 15:05:00 86.183 kg [facility] BMI 2024-02-24 15:05:00 29.76 kg/m2 [facility] Oxygen saturation in Arterial blood by Pulse oximetry 2024-02-24 15:05:00 96 /min [facility] Systolic blood pressure 2023-10-13 15:10:00 118 mm[Hg] [facility] Diastolic blood pressure 2023-10-13 15:10:00 65 mm[Hg] [facility] Heart rate 2023-10-13 15:10:00 77 /min [facility] Body temperature 2023-10-13 15:10:00 36.17 Maegan [facility] Respiratory rate 2023-10-13 15:10:00 18 /min [facility] Body height 2023-10-13 15:10:00 172.7 cm [facility] Body weight 2023-10-13 15:10:00 87.544 kg [facility] BMI 2023-10-13 15:10:00 29.35 kg/m2 [facility] Oxygen saturation in Arterial blood by Pulse oximetry 2023-10-13 15:10:00 95 /min [facility] Systolic blood pressure 2023-09-05 14:18:00 136 mm[Hg] [facility] Diastolic blood pressure 2023-09-05 14:18:00 81 mm[Hg] [facility] Heart rate 2023-09-05 14:18:00 62 /min [facility] Body height 2023-09-05 14:18:00 172.7 cm [facility] Body weight 2023-09-05 14:18:00 86.682 kg [facility] BMI 2023-09-05 14:18:00 29.06 kg/m2 [facility] Oxygen saturation in Arterial blood by Pulse oximetry 2023-09-05 14:18:00 97 /min [facility] Systolic blood pressure 2023-08-18 23:05:00 136 mm[Hg] [facility] Diastolic blood pressure 2023-08-18 23:05:00 84 mm[Hg] [facility] Heart rate 2023-08-18 23:05:00 75 /min [facility] Body temperature 2023-08-18 23:05:00 36.61 Maegan [facility] Respiratory rate 2023-08-18 23:05:00 20 /min [facility] Body height 2023-08-18 23:05:00 172.7 cm [facility] Body weight 2023-08-18 23:05:00 87.544 kg [facility] BMI 2023-08-18 23:05:00 29.35 kg/m2 [facility] Oxygen saturation in Arterial blood by Pulse oximetry 2023-08-18 23:05:00 95 /min [facility] Systolic blood pressure 2023-05-06 19:27:00 125 mm[Hg] [facility] Diastolic blood pressure 2023-05-06 19:27:00 83 mm[Hg] [facility] Heart rate 2023-05-06 19:27:00 65 /min [facility] Body temperature 2023-05-06 19:27:00 36.61 Maegan [facility] Body height 2023-05-06 19:27:00 172.7 cm [facility] Body weight 2023-05-06 19:27:00 87.272 kg [facility] BMI 2023-05-06 19:27:00 29.25 kg/m2 [facility] Oxygen saturation in Arterial blood by Pulse oximetry 2023-05-06 19:27:00 96 /min [facility] Systolic blood pressure 2023-04-12 15:54:00 129 mm[Hg] [facility] Diastolic blood pressure 2023-04-12 15:54:00 80 mm[Hg] [facility] Heart rate 2023-04-12 15:54:00 77 /min [facility] Body temperature 2023-04-12 15:54:00 36.56 Maegan [facility] Body height 2023-04-12 15:54:00 172.7 cm [facility] Body weight 2023-04-12 15:54:00 88.95 kg [facility] BMI 2023-04-12 15:54:00 29.82 kg/m2 [facility] Oxygen saturation in Arterial blood by Pulse oximetry 2023-04-12 15:54:00 96 /min [facility] Systolic blood pressure 2023-03-07 15:10:00 135 mm[Hg] [facility] Diastolic blood pressure 2023-03-07 15:10:00 73 mm[Hg] [facility] Heart rate 2023-03-07 15:10:00 59 /min [facility] Respiratory rate 2023-03-07 15:10:00 18 /min [facility] Body height 2023-03-07 15:10:00 172.7 cm [facility] Body weight 2023-03-07 15:10:00 89.404 kg [facility] BMI 2023-03-07 15:10:00 29.97 kg/m2 [facility] Oxygen saturation in Arterial blood by Pulse oximetry 2023-03-07 15:10:00 96 /min [facility] Systolic blood pressure 2023-02-08 15:20:00 124 mm[Hg] [facility] Diastolic blood pressure 2023-02-08 15:20:00 71 mm[Hg] [facility] Heart rate 2023-02-08 15:20:00 62 /min Un[facility] Body temperature 2023-02-08 15:20:00 36.44 Maegan [facility] Body height 2023-02-08 15:20:00 172.7 cm [facility] Body weight 2023-02-08 15:20:00 91.491 kg [facility] BMI 2023-02-08 15:20:00 30.67 kg/m2 [facility] Oxygen saturation in Arterial blood by Pulse oximetry 2023-02-08 15:20:00 96 /min [facility] Systolic blood pressure 2023-02-01 14:19:00 158 mm[Hg] [facility] Diastolic blood pressure 2023-02-01 14:19:00 92 mm[Hg] [facility] Heart rate 2023-02-01 14:11:00 81 /min [facility] Body height 2023-02-01 14:11:00 172.7 cm [facility] Body weight 2023-02-01 14:11:00 91.128 kg [facility] BMI 2023-02-01 14:11:00 30.55 kg/m2 [facility] Oxygen saturation in Arterial blood by Pulse oximetry 2023-02-01 14:11:00 96 /min [facility] Systolic blood pressure 2023-01-06 16:01:00 151 mm[Hg] [facility] Diastolic blood pressure 2023-01-06 16:01:00 92 mm[Hg] [facility] Heart rate 2023-01-06 15:52:00 65 /min [facility] Body temperature 2023-01-06 15:52:00 36.22 Maegan [facility] Body height 2023-01-06 15:52:00 172.7 cm [facility] Body weight 2023-01-06 15:52:00 90.357 kg [facility] BMI 2023-01-06 15:52:00 30.29 kg/m2 [facility] Oxygen saturation in Arterial blood by Pulse oximetry 2023-01-06 15:52:00 96 /min [facility] Systolic blood pressure 2022-11-25 13:34:00 178 mm[Hg] [facility] Diastolic blood pressure 2022-11-25 13:34:00 96 mm[Hg] [facility] Heart rate 2022-11-25 13:09:00 77 /min Un[facility] Body temperature 2022-11-25 13:09:00 36.61 Maegan [facility] Body height 2022-11-25 13:09:00 172.7 cm [facility] Body weight 2022-11-25 13:09:00 90.266 kg [facility] BMI 2022-11-25 13:09:00 30.26 kg/m2 [facility] Oxygen saturation in Arterial blood by Pulse oximetry 2022-11-25 13:09:00 97 /min [facility] Systolic blood pressure 2022-08-02 15:06:00 130 mm[Hg] [facility] Diastolic blood pressure 2022-08-02 15:06:00 83 mm[Hg] [facility] Heart rate 2022-08-02 15:06:00 76 /min [facility] Body height 2022-08-02 15:06:00 172.7 cm [facility] Body weight 2022-08-02 15:06:00 84.732 kg [facility] BMI 2022-08-02 15:06:00 28.40 kg/m2 [facility] Systolic blood pressure 2021-03-13 15:58:00 118 mm[Hg] [facility] Diastolic blood pressure 2021-03-13 15:58:00 70 mm[Hg] [facility] Heart rate 2021-03-13 15:58:00 80 /min Un[facility] Respiratory rate 2021-03-13 15:58:00 20 /min [facility] Body height 2021-03-13 15:58:00 172.7 cm [facility] Body weight 2021-03-13 15:58:00 86.229 kg [facility] BMI 2021-03-13 15:58:00 28.90 kg/m2 [facility] Oxygen saturation in Arterial blood by Pulse oximetry 2021-03-13 15:58:00 99 /min [facility] Procedures Procedure Date / Time Performed Performing Clinician Source [id number] - MA RPR AA HERNIA 1ST < 3 CM REDUCIBLE 2024-06-05 19:19:00 Maria Luz Montiel [facility] CT ABDOMEN PELVIS W CONTRAST 2024-05-10 23:03:26 Maria Luz Montiel [facility] RADIOLOGY DOCUMENTATION 2023-10-08 17:43:47 Doct or Unassigned, [place] [facility] RADIOLOGY DOCUMENTATION 2023-08-25 14:46:35 Doct or Unassigned, [place] [facility] RADIOLOGY DOCUMENTATION 2023-08-25 14:46:08 Doct or Unassigned, [place] [facility] XR FOOT 3+ VW LEFT 2023-08-18 23:25:00 Smoothsocorro Anita [facility] RADIOLOGY DOCUMENTATION 2023-08-16 19:35:24 Doct or Unassigned, [place] [facility] RADIOLOGY DOCUMENTATION 2023-08-16 19:19:58 Doct or Unassigned, [place] [facility] RADIOLOGY DOCUMENTATION 2023-08-02 19:47:13 Doct or Unassigned, [place] [facility] TDAP VACCINE, >11 YRS, IM 2023-04-12 16:03:26 Sofiya Lopez [facility] BI SCREENING TOMOSYNTHESIS BILATERAL 2023-03-11 16:53:54 Javy [facility] CAROL SINGLE LEVEL BY VASCULAR LAB 2012-07-26 16:41:55 Shira Mckeon [facility] CT LOWER EXTREM WO CONT 2012-07-26 15:08:00 Epi Crouch [facility] FOOT, COMPLETE MIN. 3 VIEWS 2011-11-19 17:19:00 Austin Conway [facility] XR HIPS 2 VW BILATERAL 2011-11-19 17:19:00 Prakash Conway [facility] XR LUMBAR SPINE 2 VW 2011-11-19 17:19:00 Britton Conway [facility] XR CERVICAL SPINE 3 VW 2011-11-19 17:19:00 Prakash Conway [facility] CT ABDOMEN PELVIS W CONTRAST 2011-10-12 19:05:00 Ervin Bear [facility] Encounters Start Date/Time End Date/Time Encounter Type Admission Type Attending Clinicians Care Facility Care Department Encounter ID Source 2024-10-29 10:00:00 2024-10-29 10:00:00 Outpatient SOFIYA VIERA [facility] [id number] [facility] 2024-09-18 12:57:12 2024-09-18 12:57:12 Outpatient [facility] [id number] Jimenez Rahman 2024-08-24 10:09:37 2024-08-24 10:09:37 Outpatient [facility] [id number] Jimenez Rahman 2024-08-21 13:58:44 2024-08-21 13:58:44 Outpatient [facility] [id number] Jimenez Rahman 2015-09-25 00:00:00 2024-08-16 22:36:36 Letter (Out) Lab, Eeg Lab, Eeg [facility] ([facility]) 1.2.840.114 350.1.13.10 4.2.7.2.686 [id number] [facility] 2016-10-15 00:00:00 2024-08-16 22:29:20 Refill Jd Blancas [facility] ([facility] 1.2.840.114 350.1.13.10 4.2.7.2.686 [id number] [facility] 2024-08-15 00:00:00 2024-08-15 12:47:54 Letter (Out) [facility] ([facility]) 1.2.840.114 350.1.13.10 4.2.7.2.686 [id number] [facility] 2024-08-14 13:09:03 2024-08-14 13:09:03 Outpatient [facility] [id number] Jimenez Rahman 2024-08-02 00:00:00 2024-08-02 18:28:14 Telephone Sofiya Lopez [facility] 1.2.840.114 350.1.13.10 4.2.7.2.686 [id number] [facility] 2024-08-02 00:00:00 2024-08-02 17:56:26 Sofiya Desai [facility] 1.2.840.114 350.1.13.10 4.2.7.2.686 [id number] [facility] 2024-07-31 13:10:32 2024-07-31 13:10:32 Outpatient [facility] [id number] Jimenez Rahman 2024-07-24 13:05:01 2024-07-24 13:05:01 Outpatient [facility] SFA [id number] Jimenez Rahman 2024-07-23 11:34:21 2024-07-23 11:34:21 Outpatient [facility] [id number] [id number] Jimenez Rahman 2024-07-17 13:08:23 2024-07-17 13:08:23 Outpatient [facility] [id number] Jimenez Rahman 2024-07-03 13:14:35 2024-07-03 13:14:35 Outpatient [facility] [id number] Jimenez Rahman 2024-06-26 13:09:57 2024-06-26 13:09:57 Outpatient [facility] SFA [id number] Jimenez Mercado Josiah 2024-06-19 13:09:57 2024-06-19 13:09:57 Outpatient [facility] SFA [id number] Jimenez Mercado Josiah 2024-06-18 11:00:00 2024-06-18 11:00:00 Office Visit [facility] 1..840.114 350.1.13.10 4.2.7.2.686 [id number] [facility] 2024-06-18 11:00:00 2024-06-18 10:37:24 Outpatient R MARIA LUZ [facility] [id number] [facility] 2023-10-08 00:00:00 2024-06-09 07:31:14 Orders Only Doctor Unassigned, [place] Doctor Unassigned, [place] [facility] [place] [facility]) 1.2.840.114 350.1.13.10 4.2.7.2.686 [id number] [facility] 2011-10-12 00:00:00 2024-06-09 05:22:20 Orders Only RazaOsmin ibanezveen [facility] [place] ([facility]) 1.2.840.114 350.1.13.10 4.2.7.2.686 [id number] [facility] 2011-11-19 00:00:00 2024-06-09 05:17:56 Orders Only Austin Conwya [facility] 1.2.840.114 350.1.13.10 4.2.7.2.686 [id number] [facility] 2012-07-26 00:00:00 2024-06-09 04:47:26 Orders Only Epi Crouch [facility] [place] [facility]) 1.2.840.114 350.1.13.10 4.2.7.2.686 [id number] [facility] 2014-08-06 00:00:00 2024-06-09 04:29:58 Orders Only Doctor Unassigned, [place] Doctor Unassigned, [place] [facility] AT [place] ([facility]) 1.2.840.114 350.1.13.10 4.2.7.2.686 [id number] [facility] 2014-08-06 00:00:00 2024-06-09 04:29:57 Orders Only Doctor Unassigned, [place] Doctor Unassigned, [place] [facility] [place] ([facility]) 1.2.840.114 350.1.13.10 4.2.7.2.686 [id number] [facility] 2014-08-06 00:00:00 2024-06-09 04:29:57 Orders Only Doctor Unassigned, [place] Doctor Unassigned, [place] [facility] [place] ([facility]) 1.2.840.114 350.1.13.10 4.2.7.2.686 [id number] [facility] 2023-03-07 00:00:00 2024-06-09 02:37:06 Orders Only Bertrand, Lea Bertrand, Lea [facility] 1.2.840.114 350.1.13.10 4.2.7.2.686 [id number] [facility] 2023-08-02 00:00:00 2024-06-09 02:24:54 Orders Only Doctor Unassigned, [place] Doctor Unassigned, [place] [facility] ([facility]) 1.2.840.114 350.1.13.10 4.2.7.2.686 [id number] [facility] 2023-08-16 00:00:00 2024-06-09 02:13:58 Orders Only Doctor Unassigned, [place] Doctor Unassigned, [place] [facility] [place] ([facility]) 1.2.840.114 350.1.13.10 4.2.7.2.686 [id number] [facility] 2023-08-16 00:00:00 2024-06-09 02:13:49 Orders Only Doctor Unassigned, [place] Doctor Unassigned, [place] [facility] [place] ([facility]) 1.2.840.114 350.1.13.10 4.2.7.2.686 [id number] [facility] 2023-08-25 00:00:00 2024-06-09 02:05:42 Orders Only Doctor Unassigned, [place] Doctor Unassigned, [place] [facility] ([facility]) 1.2.840.114 350.1.13.10 4.2.7.2.686 [id number] [facility] 2023-08-25 00:00:00 2024-06-09 02:04:53 Orders Only Doctor Unassigned, [place] Doctor Unassigned, [place] [facility] AT [place] ([place]) 1.2840.114 350.1.13.10 4.2.7.2.686 [id number] [facility] 2024-06-05 10:11:00 2024-06-05 16:53:00 Outpatient R MARIA LUZ MONTIEL [facility] [id number] [facility] 2024-06-05 10:11:00 2024-06-05 16:53:00 Hospital Encounter Maria Luz Montiel [facility] 1.840.114 350.1.13.10 4.2.7.2.686 [id number] [facility] 2024-06-05 11:40:00 2024-06-05 14:03:00 Surgery Maria Luz Montiel [facility] 1.20.114 350.1.13.10 4.2.7.2.686 [id number] [facility] 2024-05-25 15:09:51 2024-05-25 15:09:51 Outpatient [facility] [id number] Jimenez Rogelio Josiah 2024-05-17 16:00:00 2024-05-17 16:46:30 Outpatient R MARIA LUZ [facility] [id number] [facility] 2024-05-17 16:00:00 2024-05-17 16:46:30 Office Visit Maria Luz Montiel [facility] 1.2840.114 350.1.13.10 4.2.7.2.686 [id number] [facility] 2024-05-15 00:00:00 2024-05-15 00:00:00 Outpatient R MARIA LUZ [facility]TI[facility] [id number] [facility] 2024-05-11 09:09:05 2024-05-11 23:59:00 Outpatient R SOFIYA LOPEZ [facility] [id number] [facility] 2024-05-11 09:00:00 2024-05-11 23:59:00 Hospital Encounter Sofiya Lopez [facility] 1.2.840.114 350.1.13.10 4.2.7.2.686 [id number] [facility] 2024-05-10 16:47:33 2024-05-10 23:59:00 Hospital Encounter Maria Luz Montiel [facility] [facility] 1.2.840.114 350.1.13.10 4.2.7.2.686 [id number] [facility] 2024-05-10 16:16:55 2024-05-10 16:46:00 Hospital Encounter Sofiya Lopez [facility] 1.2.840.114 350.1.13.10 4.2.7.2.686 [id number] [facility] 2024-05-10 15:15:00 2024-05-10 15:50:22 Outpatient R MARIA LUZ MONTIEL [facility] [id number] [facility] 2024-05-10 15:15:00 2024-05-10 15:50:22 Office Visit Maria Luz Montiel [facility]ESS[facility] 1.2.840.114 350.1.13.10 4.2.7.2.686 [id number] [facility] 2024-05-08 13:09:23 2024-05-08 13:09:23 Outpatient [facility] [id number] Jimenez Rahman 2024-05-04 08:42:59 2024-05-04 08:42:59 Outpatient SFA SFA [id number] Jimenez Rahman 2024-05-03 00:00:00 2024-05-04 02:03:04 Mobile Device Encounter [facility] 1..840.114 350.1.13.10 4.2.7.2.686 [id number] [facility] 2024-05-01 13:08:51 2024-05-01 13:08:51 Outpatient SFA SFA [id number] Jimenez Rahman 2024-05-01 08:30:00 2024-05-01 08:45:00 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, Lorenzo Nelson Unknown, Attending Lab, Lorenzo Nelson [facility] 1..840.114 350.1.13.10 4.2.7.2.686 [id number] [facility] 2024-05-01 08:30:00 2024-05-01 08:30:00 Outpatient R UNKNOWN, ATTENDING [facility] [id number] [facility] 2024-04-30 14:40:00 2024-04-30 15:00:00 Office Visit Javy [facility] 1..840.114 350.1.13.10 4.2.7.2.686 [id number] [facility] 2024-04-30 14:40:00 2024-04-30 14:40:00 Outpatient R JULIADanieSOFIYA [facility] [id number] [facility] 2024-04-22 00:00:00 2024-04-28 18:20:42 Refill Juliadanie [facility] 1..840.114 350.1.13.10 4.2.7.2.686 [id number] [facility] 2024-04-23 13:59:13 2024-04-23 13:59:13 Outpatient SFA SFA [id number] Jimenez Rahman 2024-04-10 09:29:04 2024-04-10 09:29:04 Outpatient SFA SFA [id number] Jimenez Rahman 2024-04-05 13:14:45 2024-04-05 13:14:45 Outpatient SFA SFA [id number] Jimenez Rahman 2024-04-04 11:53:19 2024-04-04 11:53:19 Outpatient SFA SFA [id number] Jimenez Rahman 2024-04-03 13:01:46 2024-04-03 13:01:46 Outpatient SFA SFA [id number] Jimenez Rahman 2024-03-27 13:06:45 2024-03-27 13:06:45 Outpatient SFA SFA [id number] Jimenez Rahman 2024-03-19 08:46:07 2024-03-19 08:46:07 Outpatient SFA SFA [id number] Jimenez Rahman 2024-03-13 13:05:45 2024-03-13 13:05:45 Outpatient SFA SFA [id number] Jimenez Rahman 2024-03-09 10:25:57 2024-03-09 10:25:57 Outpatient SFA SFA [id number] Jimenez Rahman 2024-03-06 13:06:34 2024-03-06 13:06:34 Outpatient SFA SFA [id number] Jimenez Rahman 2024-02-28 13:07:05 2024-02-28 13:07:05 Outpatient SFA SFA [id number] Jimenez Rahman 2024-02-24 10:00:00 2024-02-24 10:33:36 Outpatient R NICHELLE GUZMAN [facility] [id number] [facility] 2024-02-24 10:00:00 2024-02-24 10:33:36 Office Visit Nichelle Guzman [facility] 1.2.840.114 350.1.13.10 4.2.7.2.686 [id number] [facility] 2024-02-24 09:30:00 2024-02-24 09:30:00 Outpatient NICHELLE INIGUEZ [facility] [id number] [facility] 2024-02-20 00:00:00 2024-02-20 08:42:26 Telephone Nichelle Guzamn [facility] 1.2.840.114 350.1.13.10 4.2.7.2.686 [id number] [facility] 2024-02-15 12:39:18 2024-02-15 12:39:18 Outpatient SFA SFA [id number] Jimenez Rahman 2024-01-31 13:25:30 2024-01-31 13:25:30 Outpatient SFA SFA [id number] Jimenez Rahman 2024-01-27 09:22:04 2024-01-27 09:22:04 Outpatient SFA SFA [id number] Jimenez Rahman 2024-01-24 14:04:58 2024-01-24 14:04:58 Outpatient SFA SFA [id number] Jimenez Rahman 2024-01-10 13:01:05 2024-01-10 13:01:05 Outpatient SFA SFA [id number] Jimenez Rahman 2024-01-03 13:11:30 2024-01-03 13:11:30 Outpatient SFA SFA [id number] Jimenez Rahman 2023-12-28 13:53:33 2023-12-28 13:53:33 Outpatient SFA SFA [id number] Jimenez Rahman 2023-12-27 13:05:12 2023-12-27 13:05:12 Outpatient SFA SFA [id number] Jimenez Rahman 2023-12-20 00:00:00 2023-12-21 11:40:41 Telephone Sofiya Lopez [facility] 1.2.840.114 350.1.13.10 4.2.7.2.686 [id number] [facility] 2023-12-20 13:01:07 2023-12-20 13:01:07 Outpatient SFA SFA [id number] Jimenez Rahman 2023-12-13 12:57:34 2023-12-13 12:57:34 Outpatient SFA SFA [id number] Jimenez Rahman 2023-12-06 12:59:07 2023-12-06 12:59:07 Outpatient SFA SFA [id number] Jimenez Rahman 2023-12-02 08:48:06 2023-12-02 08:48:06 Outpatient SFA SFA [id number] Jimenez Rahman 2023-11-29 13:11:29 2023-11-29 13:11:29 Outpatient SFA SFA [id number] Jimenez Rahman 2023-11-22 13:05:18 2023-11-22 13:05:18 Outpatient SFA SFA [id number] Jimenez Rahman 2023-11-21 00:00:00 2023-11-22 09:32:56 RefSofiya Ozuna [facility] 1.2.840.114 350.1.13.10 4.2.7.2.686 [id number] [facility] 2023-11-15 13:02:19 2023-11-15 13:02:19 Outpatient SFA SFA [id number] Jimenez Rahman 2023-11-14 10:10:09 2023-11-14 10:10:09 Outpatient SFA SFA [id number] Jimenez Mercado Hysham 2023-11-10 00:00:00 2023-11-10 10:13:18 Albert James [facility] 1.2.840.114 350.1.13.10 4.2.7.2.686 [id number] [facility] 2023-11-09 00:00:00 2023-11-09 12:35:24 Telephone Nichelle Guzman [facility] 1.840.114 350.1.13.10 4.2.7.2.686 [id number] [facility] 2023-11-08 14:07:29 2023-11-08 14:07:29 Outpatient SFA SFA [id number] Jimenez Rahman 2023-11-02 08:27:05 2023-11-02 08:27:05 Outpatient SFA SFA [id number] Jimenez Rahman 2023-10-25 12:57:01 2023-10-25 12:57:01 Outpatient SFA SFA [id number] Jimenez Rahman 2023-10-24 16:22:42 2023-10-24 16:22:42 Outpatient SFA SFA [id number] Jimenez Rahman 2023-10-18 13:02:53 2023-10-18 13:02:53 Outpatient SFA SFA [id number] Jimenez Rahman 2023-10-13 10:20:00 2023-10-13 11:16:53 Outpatient R SOFIYA LOPEZ [facility] [id number] [facility] 2023-10-13 10:20:00 2023-10-13 11:16:53 Office Visit Juliadanie [facility] 1..840.114 350.1.13.10 4.2.7.2.686 [id number] [facility] 2023-10-11 13:02:55 2023-10-11 13:02:55 Outpatient SFA SFA [id number] Jimenez Rahman 2023-10-08 00:00:00 2023-10-10 09:05:21 Telephone Javy [facility] 1..840.114 350.1.13.10 4.2.7.2.686 [id number] [facility] 2023-10-04 13:07:09 2023-10-04 13:07:09 Outpatient SFA SFA [id number] Jimenez Rahman 2023-09-27 13:11:21 2023-09-27 13:11:21 Outpatient SFA SFA [id number] Jimenez Rahman 2023-09-26 12:00:39 2023-09-26 12:00:39 Outpatient SFA SFA [id number] Jimenez Rahman 2023-09-21 09:26:45 2023-09-21 09:26:45 Outpatient SFA SFA [id number] Jimenez Rahman 2023-09-20 13:10:22 2023-09-20 13:10:22 Outpatient SFA SFA [id number] Jimenez Rahman 2023-09-13 15:47:45 2023-09-13 15:47:45 Outpatient SFA SFA [id number] Jimenez Rahman 2023-09-05 09:30:00 2023-09-05 09:56:12 Outpatient R [facility] [id number] [facility] 2023-09-05 09:30:00 2023-09-05 09:56:12 Office Visit Megan [facility] 1.2.840.114 350.1.13.10 4.2.7.2.686 [id number] [facility] 2023-09-05 08:30:39 2023-09-05 08:30:39 Outpatient SFA SFA [id number] Jimenez Rahman 2023-08-30 13:11:20 2023-08-30 13:11:20 Outpatient SFA SFA [id number] Jimenez Rahman 2023-08-23 13:12:08 2023-08-23 13:12:08 Outpatient SFA SFA [id number] Jimenez Rahman 2023-08-18 18:11:39 2023-08-18 23:59:00 Hospital Encounter Anita Mckeon [facility] 1.2.840.114 350.1.13.10 4.2.7.2.686 [id number] [facility] 2023-08-18 17:40:00 2023-08-18 18:43:03 Outpatient R ANITA MCKEON [facility] [id number] [facility] 2023-08-18 17:40:00 2023-08-18 18:00:00 Urgent Care Anita Mckeon Unknown, Attending [facility] 1.2.840.114 350.1.13.10 4.2.7.2.686 [id number] [facility] 2023-08-16 00:00:00 2023-08-16 00:00:00 [facility] 1.2.840.114 350.1.13.10 4.2.7.2.686 [id number] [facility] 2023-08-09 14:00:16 2023-08-09 14:00:16 Outpatient SFA [facility] [id number] Jimenez Rahman 2023-08-08 10:26:57 2023-08-08 10:26:57 Outpatient SFA [facility] [id number] Jimenez Rahman 2023-08-02 00:00:00 2023-08-02 00:00:00 [facility] 1.2.840.114 350.1.13.10 4.2.7.2.686 [id number] [facility] 2023-08-01 09:09:03 2023-08-01 09:09:03 Outpatient SFA SFA [id number] Jimenez Mercado Josiah 2023-07-26 13:00:28 2023-07-26 13:00:28 Outpatient SFA [facility] [id number] Jimenez Rahman 2023-07-19 13:01:00 2023-07-19 13:01:00 Outpatient SFA SFA [id number] Jimenez Rahman 2023-07-18 11:21:16 2023-07-18 11:21:16 Outpatient SFA SFA 25 Jimenez Rahman 2023-07-12 13:08:51 2023-07-12 13:08:51 Outpatient SFA SFA 19 Jimenez Rahman 2023-07-05 13:05:40 2023-07-05 13:05:40 Outpatient SFA SFA 12 Jimenez Rahman 2023-06-28 13:02:56 2023-06-28 13:02:56 Outpatient SFA SFA 05 Jimenez Rahman 2023-06-27 11:27:06 2023-06-27 11:27:06 Outpatient SFA SFA 04 Jimenez Rahman 2023-06-21 13:16:31 2023-06-21 13:16:31 Outpatient SFA SFA 27 Jimenez Rahman 2023-06-14 13:01:29 2023-06-14 13:01:29 Outpatient SFA SFA 20 Jimenez Rahman 2023 13:14:53 2023 13:14:53 Outpatient SFA SFA [id number] Jimenez Rahman 2023-05-24 13:02:49 2023-05-24 13:02:49 Outpatient SFA SFA [id number] Jimenez Rahman 2023-05-06 13:20:00 2023-05-06 13:47:36 Outpatient R SOFIYA LOPEZ [facility] [id number] [facility] 2023-05-06 13:20:00 2023-05-06 13:47:36 Office Visit [facility] 1.2.840.114 350.1.13.10 4.2.7.2.686 [id number] [facility] 2023-05-02 10:18:56 2023-05-02 10:18:56 Outpatient SFA [facility] [id number] Jimenez Rahman 2023-04-12 10:20:00 2023-04-12 10:40:00 [facility] 1.840.114 350.1.13.10 4.2.7.2.686 [id number] [facility] 2023-04-12 10:20:00 2023-04-12 10:20:00 Outpatient R SOFIYA LOPEZ [facility] [id number] [facility] 2023-03-28 09:23:41 2023-03-28 09:23:41 Outpatient SFA [facility] [id number] Jimenez Rahman 2023-03-11 10:30:44 2023-03-11 23:59:00 Hospital Encounter Javy [facility] 1.84.114 350.1.13.10 4.2.7.2.686 [id number] [facility] 2023-03-11 10:28:56 2023-03-11 10:29:00 Outpatient R SOFIYA LOPEZ [facility] [id number] [facility] 2023-03-11 10:28:56 2023-03-11 10:29:00 Hospital Encounter Javy [facility] 1.84.114 350.1.13.10 4.2.7.2.686 [id number] [facility] 2023-03-07 10:30:00 2023-03-07 10:30:00 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, Nichelle Cha [facility] 1..840.114 350.1.13.10 4.2.7.2.686 [id number] [facility] 2023-03-07 09:30:00 2023-03-07 10:02:59 Outpatient R NICHELLE GUZMAN [facility] [id number] [facility] 2023-03-07 09:30:00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 The patient was placed under general anesthesia. SCDs were donned and antibiotics were given. The patient's abdomen was prepped and draped in the usual sterile fashion and a timeout was performed. An incision over the hernia was made and carried downwards with cautery. The hernia defect was isolated with blunt dissection and cautery to free it from the anterior aspect of the fascia. The underlying fascial defect measuring 2cm x 3cm. The preperitoneal space below the fascia of the defect was cleared circumferentially to fit the mesh. The large ventral hernia mesh listed above was placed in the preperitoneal space and secured in place x4 with 0 ethibond along the defect. Wcity-rqvn-mzny repair (Dave suture) was performed using interrupted 2-0 PDS. 60cc of Exparel mixed with 0.25 Marcaine without epinephrine and sterile injectable saline was used to infiltrate the surrounding tissue around the fascia. Hemostasis was achieved. 40cc of Exparel mixed with 0.25 Marcaine without epinephrine and sterile injectable saline was used to infiltrate the subcutaneous tissue. The subcutaneous tissue was approximated with 3-0 Vicryl deep dermals followed by running 4-0 Monocryl for the skin. Dermabond was applied and abdominal binder was applied. All counts were correct at the end of the case. The patient was extubated and transferred to PACU in stable condition. There were no apparent complications. Dr. Montiel was present and scrubbed for the entirety of the operative procedure. Khoi Coleman General Surgery 06/05/2024 16:00 Attending Attestation: I personally evaluated and examined the patient on 06/05/2024 prior to surgery and agree with Dr. Coleman's operative note as written and subsequently edited by me. Please see the resident's operative note for additional details. I was present and scrubbed during the entirety of the operative procedure. Findings at surgery included 3 cm fascial defect, hernia contained preperitoneal fat, a 8.6 cm Parietex Composite Ventral Patch was used to repair the defect and placed in the preperitoneal space. The fascia was closed over the mesh using the interrupted vcqsh-essu-syli technique. Maria Luz Montiel M.D. 06/05/2024 16:21 EDICAL ANALYTICAL SCIENTIST VALENTIN-SURGERY STAFF [facility] 2024-05-31 13:27:51 Images from the original note were not included. Your General Surgery procedure is at [facility] on 06/05/24. The address is [address] [place] [address], [facility]. [facility] nursing staff will call you the workday before your procedure to let you know what time to arrive.On the day of your procedure, please go inside that door and check in at the desk. Please note: You may not travel home alone and that includes in a taxi or by bus. We must speak to your Responsible Adult (who will be picking you up) the morning of your procedure, before the start of your procedure. This person must be an adult over the age of 18 years of age. Do not eat any solid food after midnight the night before surgery. You may have sips of clear liquids such as water, gatorade, and sprite up until two hours before your scheduled procedure. You may take your medications with a sip of water as directed by physician. Anticoagulants will be per physician guidance. Medication Note(s)/Instructions: The patient stated she was told to to stop her Furosemide and Losartan 2 days prior to procedure. Advised to follow their instructions. Advised to take Oxcarbazepine Trileptal the morning of the procedure. The patient was educated on medication and procedure. The teach-back method is repeated and confirmed. There are no pre-op orders for labs or further testing at this time. Understanding was verbalized, with no questions or concerns at this time. The patient was informed that they would receive a call between 12-3 pm the day before the procedure for arrival time. The patient was advised to call the office or the pre-op nurse if they have any changes in their health, questions, or concerns before the procedure. The numbers were provided. COVID SCREENING NOTE: Denies COVID OR FLU-LIKE symptoms at this time; no testing is required. [facility] 2024-05-01 08:30:00 Images from the original note were not included. Venipuncture collection performed by clean technique on the right anticubitus. Total of 1 attempts were made. Slight pressure and a bandage/dressing were applied to the site(s). The patient experienced no complications. The following specimens were processed according to instructions and sent to [facility] laboratories per lab order on 05/01/2024 : LT BLUE SST 2 RED LAV 2 PPT DK GREEN (LiHep) DK GREEN (SodH) ARIAS DK BLUE (K2) DK BLUE (S) ACD Blood Culture NIPT/NTD Patient has been identified by and name and was provided with cup, antiseptic towelette, and clean catch instructions. 1 urine specimen(s) sent. Unpreserved 1 Urine Culture Aptima tube Other urine [facility] 2024-04-27 11:46:36 Images from the original note were not included. Notes: Last Refilled: Name from pharmacy: TIZANIDINE HCL 4 MG TABLET Will file in chart as: TIZANIDINE 4 mg tablet Sig: TAKE 1 TABLET BY MOUTH EVERY 6 HOURS NEEDED FOR PAIN (SCALE 4-6). Disp: 120 tablet Refills: 2 Start: 04/22/2024 Class: eRX Non-formulary For: Back pain, unspecified back location, unspecified back pain laterality, unspecified chronicity Last ordered: 5 months ago (11/22/2023) by Sofiya Lopez MD Last refill: 03/22/2024 Rx #: [id number] Provider Review Required [id number]/22/2024 12:38 AM Protocol Details This refill cannot be delegated Valid encounter within last 12 months To be filled at: [facility]/pharmacy #[id number] - [place], [place] - [address] AT [facility] [address] Recent Visits Date Type Provider Dept 10/13/23 Office Visit Sofiya Lopez MD [facility] 05/06/23 Office Visit Sofiya Lopez MD [facility] 04/12/23 Office Visit Sofiya Lopez MD [facility] 02/08/23 Office Visit Sofiya Lopez MD [facility] 01/06/23 Office Visit Sofiya Lopez MD [facility] 11/25/22 Office Visit Sofiya Lopez MD [facility] Showing recent visits within past 540 days with a meds authorizing provider and meeting all other requirements Future Appointments Date Type Provider Dept 04/30/24 Appointment Sofiya Lopez MD [facility] Showing future appointments within next 150 days with a meds authorizing provider and meeting all other requirements EDICAL ANALYTICAL SCIENTIST Sudha Schwab MA [facility] 2024-02-20 08:39:44 Called pt and assisted in scheduling a sooner f/u appt as [facility] has not prescribed Lamictal since 2016. Pt reports she was receiving it from Dr. Andrew until 1 year ago but when they changed practices he took her off of it. Reports she has noticed an increase in aggression since being off of it associated with her TLE. Camila Cuevas LVN [facility] 2024-02-20 08:06:40 Kirti Desai is a 63 year old female. Pt requesting to speak with provider. Pt states that she has recently realized that since she was taken off lamoTRIgine 150 mg tablet (Discontinued) , she has had anger issues. Pt states she needs to be back on this medication. Please advise. Bossman Stearns [facility] 2023-12-21 11:40:13 Patient notified of all and verbalized understanding. No further needs were voiced. Lea Bertrand CEMENT HANDLER [facility] 2023-12-21 06:48:59 She can try OTC lotrimin or clotrimazole (most antifungals ending in -Azole). Schedule OV if no improvement. T [facility] 2023-12-20 15:14:07 Please review and advise Recent Visits Date Type Provider Dept 10/13/23 Office Visit Sofiya Lopez MD [facility] 05/06/23 Office Visit Sofiya Lopez MD [facility] 04/12/23 Office Visit Sofiya Lopez MD [facility] 02/08/23 Office Visit Sofiya Lopez MD [facility] 01/06/23 Office Visit Sofiya Lopez MD [facility] 11/25/22 Office Visit Sofiya Lopez MD [facility] Showing recent visits within past 540 days with a meds authorizing provider and meeting all other requirements Future Appointments Date Type Provider Dept 04/13/24 Appointment Sofiya Lopez MD [facility] Showing future appointments within next 150 days with a meds authorizing provider and meeting all other requirements Zakiya Cortes LVN [facility] 2023-12-20 15:11:22 Kirti Desai is a 63 year old female. Patient is calling asking for a prescription for ring worm. Patient stated that she has it on her finger. Patient stated that is a raised round rash. Missy Gudino [facility] 2023-11-21 08:48:00 Last Refilled: Disp Refills Start End SANDRA tiZANidine 4 mg tablet 180 tablet 3 04/12/2023 -- No Sig: Take 1 tablet by mouth every 6 (six) hours as needed for Pain (scale 4-6). Sent to pharmacy as: tiZANidine 4 mg tablet (ZANAFLEX) Class: eRX Route: Oral Order: [id number] Date/Time Signed: 04/12/2023 10:22 E-Prescribing Status: Receipt confirmed by pharmacy (04/12/2023 10:22 AM BIOMEDICAL ANALYTICAL SCIENTIST) Notes: Recent Visits Date Type Provider Dept 10/13/23 Office Visit Sofiya Lopez MD [facility] 05/06/23 Office Visit Sofiya Lopez MD [facility] 04/12/23 Office Visit Sofiya Lopez MD [facility] 02/08/23 Office Visit Sofiya Lopez MD [facility] 01/06/23 Office Visit Sofiya Lopez MD [facility] 11/25/22 Office Visit Sofiya Lopez MD [facility] Showing recent visits within past 540 days with a meds authorizing provider and meeting all other requirements Future Appointments Date Type Provider Dept 04/13/24 Appointment Sofiya Lopez MD [facility] Showing future appointments within next 150 days with a meds authorizing provider and meeting all other requirements Michaela Carey RN [facility] 2023-11-10 10:12:35 [facility] forms from [facility], placed in provider box. Sherwin Lyons [facility] 2023-11-09 12:34:46 No fax has been received. Contacted [facility] and requested them to refax it. Camila Cuevas LVN [facility] 2023-11-09 10:14:06 [facility] is calling wants to know if we received a clearance form that they had faxed over October 19 Please advise FAX [phone] Steve Jimenez [facility] 2023-10-10 09:05:[address] in provider basket for approval [facility] 2023-10-08 12:44:19 Received radiology services report from [facility], have placed in provider's box and loaded into patients chart. Sirisha Martin [facility] 2023-08-16 14:21:19 External radiology reports from [facility] uploaded into pts chart and placed into providers box Gaby Wynn [facility] 2023-08-02 14:48:37 External radiology reports from [facility] uploaded into pts chart and placed into providers box Gaby Wynn [facility] 2023-01-06 11:30:00 Formatting of this n ote is different from the original. Images from the original note were not included. Venipuncture collection performed by clean technique on the [...] DK BLUE (S) ACD Blood Culture NIPT/NTD [facility] 2022-11-29 15:23:07 Formatting of this n ote might be different from the original. 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 I will see if it can be specific to department but it is under FYI flag which triggers the banner. I will find out - thank you! Gladys Bird RN [facility] 2022-11-26 17:20:16 Formatting of this n ote might be different from the original. Sent, BTW there is a banner that says "dismissed from practice." Can you speak with kathleen or gladys as to why or if we can get it changed in the system. [facility] 2022-11-26 11:29:00 Formatting of this n ote might be different from the original. Please review and refill if appropriate. [facility] 2022-11-26 11:11:12 Formatting of this n ote might be different from the original. Pt says she need refill on lasix and [facility] went to pharm yesterday they informed her no refill [facility] Clare Martin [facility] 2016-10-20 15:20:31 Since pt has allergy listed to carbazepine, would like pt to come to clinic for an assessment before a refill is given. Messages left on both numbers provided for pt to call clinic back for further discussion. T [facility] 2016-10-15 15:31:08 please review pt has allergies to carbazepine. Please advise, thank you. T [facility]
[2024-09-18 17:19] LABS: Absolute Basophils 0.1 K/uL (0-0.5); Absolute Eosinophils 0.1 K/uL (0-0.5); Absolute Lymphocytes (CBC) 2.7 K/uL (0.7-4.9); Absolute Neutrophil 6.5 K/uL (1.8-8.0); Basophils % 0.9 % (0-1.3); Eosinophils % 1.2 % (0-4.4); Hemoglobin 14.6 g/dL (12.0-15.0); Lymphocytes % 25.8 % (15.3-44.8); MCH 31.1 pg (27.0-35.0); MCHC 34.8 g/dL (32.0-36.0); MCV 89.3 fL (80-100); MPV 7.8 fL (7.6-11.3); Monocytes % 9.3 % (3.3-12.3); Neutrophils % 62.8 % (41.7-73.7); Platelets 228 thou/uL (152-406); RBC Red Blood Cell Count 4.71 M/uL (3.86-4.86); Red Cell Distribution Width 14.2 % (12.1-15.2)
[2024-09-18 17:36] LABS: ALT/SGPT 23 U/L (13-56); Albumin 3.6 g/dL (3.4-5.0); Albumin/Globulin Ratio 0.9 (1.1-1.8); Alkaline Phosphatase 94 U/L (45-117); Anion Gap 9.1 mEq/L (5.0-15.0); BUN Blood Urea Nitrogen 12 mg/dL (7-18); Bicarbonate 27 mEq/L (21-32); Bilirubin Total 0.3 mg/dL (0.2-1.0); Globulin 4.2 g/dL (2.3-3.5); Glomerular Filtration Rate 73 ml/min (=/>90); Glucose Level 124 mg/dL (74-106); Lipase 35 U/L (13-75); Potassium 3.1 mEq/L (3.5-5.1); Protein, Total 7.8 g/dL (6.4-8.2); Sodium Level 137 mEq/L (136-145)
[2024-09-18] MEDS ORDERED: ONDANSETRON 4 MG/2 ML VIAL ONE (17:37)
[2024-09-18 17:38] LABS: AST/SGOT < 10 U/L (15-37)
[2024-09-18] MEDS ORDERED: NA CHLORIDE 0.9% 1,000 ML ONE (17:38)
[2024-09-18] MEDS ORDERED: MORPHINE 4 MG/ML SYR ONE (17:38)
--- NOTE | 2024-09-18 18:29 | RAD REPORT ---
EXAMINATION: CT ABDOMEN AND PELVIS WITH CONTRAST CLINICAL INDICATION: ABD PAIN TECHNIQUE: CT abdomen and pelvis was performed, after the administration of IV contrast, as per [facility] protocol. Axial, sagittal and coronal reconstructions were obtained. One or more of the following dose reduction techniques were used: Automated exposure control, adjustment of the mA and k V according to patient size, and iterative reconstruction. Unless otherwise specified, incidental findings do not require dedicated imaging follow-up. COMPARISON: No prior exam. FINDINGS: LOWER CHEST: The visualized lung bases are clear. LIVER: Mild fatty liver is present. No focal lesion or biliary dilatation is seen. Cholecystectomy clips. SPLEEN: Normal size. No focal lesion. PANCREAS: No mass, ductal dilation, or chris-pancreatic fluid. ADRENALS: 26 mm fat-containing left adrenal mass likely a myelolipoma. Right adrenal gland is normal . KIDNEYS: Normal size and contour. No hydronephrosis. 19 mm cyst left kidney. GASTROINTESTINAL TRACT: No evidence of free air, significant intra-abdominal free fluid, bowel obstru ction or abscess. There is irregular thickening of the sigmoid colon numerous diverticula are present. There is reticulation of the adjacent fat likely indicating diverticulitis is present. APPENDIX: Normal appendix. LYMPH NODES: No lymphadenopathy. MUSCULOSKELETAL: No acute or suspicious osseous abnormality. ADDITIONAL FINDINGS: Aortoiliac atherosclerosis. Smaller bubble urinary bladder. IMPRESSION: There is a moderate segment of mildly inflamed sigmoid colon in left lower quadrant abdomen. Numerous diverticula are present with surrounding reticulation in the fat likely acute diverticulitis. Following appropriate treatment, colonoscopy would be recommended to directly visualize this portion of the colon. Small air bubble is present in the urinary bladder which may be related to instrumentation or infecti on.
--- NOTE | 2024-09-18 18:43 | ER ---
Nurse's Notes [facility] [place] Name: Kirti Desai Age: 64 yrs Sex: Female : 1960 Arrival Date: 09/18/2024 Time: 16:52 Bed 18 Private MD: Diagnosis: Diverticulitis of large intestine without perforation or abscess without bleeding Presentation: 09/18 17:02 Chief complaint: Patient states: abd pain x 1 week. Coronavirus screen: Client denies ss travel out of the [place] in the last 14 days. Ebola Screen: Patient denies exposure to infectious person. Patient denies travel to an Ebola-affected area in the 21 days before illness onset. Initial Sepsis Screen: Does the patient meet any 2 criteria? Yes Does the patient have a suspected source of infection? No. Patient's initial sepsis screen is negative. Risk Assessment: Do you want to hurt yourself or someone else? Patient reports no desire to harm self or others. Onset of symptoms was September 11, 2024. 17:02 Method Of Arrival: Ambulatory ss 17:02 Acuity: SAMANTHA 3 ss Historical: - Allergies: 17:03 Carbamazepine; ss 17:03 erythromycin lactobionate; ss 17:03 Haloperidol; ss 17:03 haloperidol lactate; ss 17:03 Phenobarbital; ss 17:03 tapentadol; ss 17:03 topiramate; ss - PMHx: 17:03 Anxiety; Bipolar disorder; Cellulitis; Chronic pain; epilepsy; DVT L leg-from hip down ss to toe; CVA; April- but undiagnosed. (); Diverticulitis; - Social history:: Smoking status: . Screenin:[facility] ED Fall Risk Assessment (Adult) History of falling in the last 3 months, dd2 including since admission No falls in past 3 months (0 pts) Confusion or Disorientation No (0 pts) Intoxicated or Sedated No (0 pts) Impaired Gait No (0 pts) Mobility Assist Device Used No (0 pt) Altered Elimination No (0 pt) Score/Fall Risk Level 0 - 2 = Low Risk Oriented to surroundings, Maintained a safe environment, Educated pt \T\ family on fall prevention, incl call for assistance when getting out of bed, Assessed \T\ reinforced patient's understanding of fall precautions, Hourly rounding (assess needs \T\ fall precautionary measures) done. Abuse screen: Denies threats or abuse. Denies injuries from another. Nutritional screening: No deficits noted. Tuberculosis screening: No symptoms or risk factors identified. Vital Signs: 17:02 BP 186 / 98; Pulse 89; Resp 17; Pulse Ox 96% on R/A; ss 19:10 BP 135 / 89; Pulse 88; Resp 17; Temp 98; Pulse Ox 99% on R/A; Pain 0/10; rg5 19:10 Pain Scale: Adult rg5 ED Course: 16:57 Patient arrived in ED. im 16:57 Shanice Nash PA-C is PHCP. sb4 16:57 Ollie Sen DO is Attending Physician. sb4 17:03 Triage completed. ss 17:03 Arm band placed on right wrist. ss 17:15 CBC with Diff Sent. bc6 17:15 CMP Sent. bc6 17:15 Lipase Sent. bc6 17:15 Initial lab(s) drawn, by me, sent to lab. Inserted saline lock: 20 gauge in right bc6 antecubital area, using aseptic technique. Blood collected. Flushed with 10 mL NS. 17:17 YUE TALAMANTES, RN is Primary Nurse. dd2 17:55 Patient has correct armband on for positive identification. Bed in low position. Call dd2 light in reach. Side rails up X 1. Client placed on continuous cardiac and pulse oximetry monitoring. NIBP monitoring applied. Door closed. Noise minimized. Warm blanket given. Pillow given. Verbal reassurance given. 17:55 No provider procedures requiring assistance completed. Inserted saline lock: 22 gauge dd2 in left antecubital area, using aseptic technique. Flushed with 10 mL NS IV discontinued, intact, bleeding controlled, No redness/swelling at site. Pressure dressing applied. 18:21 CT Abd/Pelvis - IV Contrast Only In Process Unspecified. EDMS 18:42 Winston Forde MD is Referral Physician. sb4 Administered Medications: 17:54 Drug: Ondansetron IVP 4 mg IVP once; over 2 minutes Route: IVP; Site: left antecubital; dd2 19:08 Follow up: Response: No adverse reaction rg5 17:54 Drug: morphine IVP or IV 4 mg IVP once over 4 mins Route: IVP; Infused Over: 4 mins; dd2 Site: left antecubital; 19:08 Follow up: Response: No adverse reaction; Pain is decreased rg5 17:54 Drug: NS 0.9% IV 1000 ml IV at 1 bolus Per protocol; to be given as a bolus over 60 dd2 minutes Route: IV; Rate: 1 bolus; Site: left antecubital; 19:07 Follow up: IV Status: Completed infusion; IV Intake: 1000ml rg5 19:10 Drug: Potassium PO Effervescent Tablet 50 mEq PO once; dissolve in 4 ounces of water or rg5 juice Route: PO; 19:10 Drug: Amoxicillin-Clavulanate PO 875 mg PO once Route: PO; rg5 Intake: 19:07 IV: 1000ml; Total: 1000ml. rg5 Outcome: 18:43 Discharge ordered by . sb4 19:33 Discharged to home ambulatory, rg5 19:33 Condition: stable 19:33 Instructed on discharge instructions, Demonstrated understanding of instructions, follow-up care, Prescriptions given X 1, 19:33 Patient left the ED. rg5 Signatures: Dispatcher [employer] EDMS Kiersten Chacon, RN RN Shanice Butterfield, PA-C PA-C sb4 Neris Sawyer Itzel im Gallardo, Rommel, RN RN rg5 YUE TALAMANTES RN RN dd2
--- NOTE | 2024-09-18 18:43 | EDPHYS ---
Physician Documentation [facility] Name: Kirti Desai Age: 64 yrs Sex: Female : 1960 Arrival Date: 09/18/2024 Time: 16:52 Bed 18 Private MD: ED Physician Ollie Sen HPI: 09/18 17:04 This 64 yrs old Female presents to ER via Ambulatory with complaints of Abdominal Pain. sb4 17:04 The patient presents with abdominal pain right lower quadrant. Onset: The sb4 symptoms/episode began/occurred 1 week(s) ago, and became worse 2 day(s) ago. The symptoms do not radiate. Associated signs and symptoms: Pertinent positives: nausea, vomiting, and diarrhea, Pertinent negatives: blood in stools. Patient reports right lower quadrant abdominal pain with associated nausea, vomiting, diarrhea. States it feels exactly like when she had diverticulitis last year. Historical: - Allergies: 17:03 Carbamazepine; ss 17:03 erythromycin lactobionate; ss 17:03 Haloperidol; ss 17:03 haloperidol lactate; ss 17:03 Phenobarbital; ss 17:03 tapentadol; ss 17:03 topiramate; ss - PMHx: 17:03 Anxiety; Bipolar disorder; Cellulitis; Chronic pain; epilepsy; DVT L leg-from hip down ss to toe; CVA; April- but undiagnosed. (); Diverticulitis; - Social history:: Smoking status: . ROS: 17:04 Constitutional: Negative for fever, chills, and weight loss, sb4 17:04 Abdomen/GI: Positive for abdominal pain, nausea, vomiting, and diarrhea, 17:04 All other systems are negative, Exam: 17:04 Head/Face: Normocephalic, atraumatic. Eyes: Extra-ocular motions intact. Periorbital sb4 areas with no swelling, redness, or edema. ENT: Mucous membranes moist. Cardiovascular: Regular rate and rhythm with a normal S1 and S2. Respiratory: No increased work of breathing, no retractions or nasal flaring. Skin: Warm, dry with normal turgor. Normal color with no rashes, no lesions, and no evidence of cellulitis. 17:04 Constitutional: The patient appears alert, awake, uncomfortable, 17:04 Abdomen/GI: Inspection: abdomen appears normal, Bowel sounds: normal, Palpation: soft, moderate abdominal tenderness, in the right lower quadrant, Vital Signs: 17:02 BP 186 / 98; Pulse 89; Resp 17; Pulse Ox 96% on R/A; ss 19:10 BP 135 / 89; Pulse 88; Resp 17; Temp 98; Pulse Ox 99% on R/A; Pain 0/10; rg5 19:10 Pain Scale: Adult rg5 MDM: 16:58 Medical Screening Exam initiated sb4 17:06 Differential diagnosis: appendicitis, diverticulitis, non-specific abd pain, urinary sb4 tract infection. 18:41 Data reviewed: vital signs, nurses notes, lab test result(s), radiologic studies, and sb4 as a result, I will discharge patient. Counseling: I had a detailed discussion with the patient and/or guardian regarding the historical points, exam findings, and any diagnostic results supporting the discharge/admit diagnosis, the presence of at least one elevated blood pressure reading (>120/80) during this emergency department visit, lab results, radiology results, the need for outpatient follow up, for definitive care, to return to the emergency department if symptoms worsen or persist or if there are any questions or concerns that arise at home. 09/18 17:04 Order name: CBC with Diff; Complete Time: 17:24 sb4 09/18 17:04 Order name: CMP; Complete Time: 17:39 sb4 09/18 17:04 Order name: Lipase; Complete Time: 17:39 sb4 09/18 17:04 Order name: CT Abd/Pelvis - IV Contrast Only; Complete Time: 18:32 sb4 09/18 17:04 Order name: IV Saline Lock; Complete Time: 17:15 sb4 09/18 17:04 Order name: Labs collected and sent; Complete Time: 17:15 sb4 Administered Medications: 17:54 Drug: Ondansetron IVP 4 mg IVP once; over 2 minutes Route: IVP; Site: left antecubital; dd2 19:08 Follow up: Response: No adverse reaction rg5 17:54 Drug: morphine IVP or IV 4 mg IVP once over 4 mins Route: IVP; Infused Over: 4 mins; dd2 Site: left antecubital; 19:08 Follow up: Response: No adverse reaction; Pain is decreased rg5 17:54 Drug: NS 0.9% IV 1000 ml IV at 1 bolus Per protocol; to be given as a bolus over 60 dd2 minutes Route: IV; Rate: 1 bolus; Site: left antecubital; 19:07 Follow up: IV Status: Completed infusion; IV Intake: 1000ml rg5 19:10 Drug: Potassium PO Effervescent Tablet 50 mEq PO once; dissolve in 4 ounces of water or rg5 juice Route: PO; 19:10 Drug: Amoxicillin-Clavulanate PO 875 mg PO once Route: PO; rg5 Disposition: 18:07 I was immediately available on-site in the Emergency Department for consultation in the ms3 care of the patient. Disposition Summary: 09/18/24 18:43 Discharge Ordered Notes: Location: Home sb4 Problem: new sb4 Symptoms: have improved sb4 Condition: Stable sb4 Diagnosis - Diverticulitis of large intestine without perforation or abscess without bleeding sb4 Followup: sb4 - With: Winston Forde MD - When: As needed - Reason: Recheck today's complaints, Re-evaluation by your physician Discharge Instructions: - Discharge Summary Sheet sb4 - Diverticulitis, [id number] sb4 Forms: - Antibiotic Education sb4 - Patient Portal Instructions sb4 - Leadership Thank You Letter sb4 Prescriptions: - Augmentin 875-125 mg Oral tablet - take 1 tablet ORAL route every 8 hours for 10 days; 30 tablet; Refills: 0, sb4 Product Selection Permitted Signatures: Dispatcher [employer] EDMS Kiersten Chacon RN RN ss Ollie Sen DO DO ms3 Shanice Nash PA-C PA-C sb4 Floyd Cox RN RN rg5 YUE TALAMANTES RN RN dd2 Corrections: (The following items were deleted from the chart) 17:05 17:04 CBC+H.LAB.BRZ ordered. EDMS EDMS 17:05 17:04 COMPREHENSIVE METABOLIC PANEL+C.LAB.BRZ ordered. EDMS EDMS 17:05 17:04 LIPASE+C.LAB.BRZ ordered. EDMS EDMS
[2024-09-18] MEDS ORDERED: POTASSIUM 25 MEQ EFFERV TAB ONE (19:18)
[2024-09-18] MEDS ORDERED: AMOX/K CLAV 875 MG TAB ONE (19:18)
[2024-09-18 19:39] VITALS: BP 135/89; TEMP 98; O2SAT 99
== END 2024-09-18 19:33 | disposition home or self-care (01) ==
LOC: ER 16:52
DX: K57.32 Diverticulitis of large intestine without perforation or abscess without bleeding (principal)
CPT/HCPCS: 96361; 85025; 36415; 83690; 80053; 74177; 96375; 96374; 99284; Q9967; J2405; J7030